=== PATIENT | male | born 1950 | race Caucasian/White ===

== ENCOUNTER 2017-04-21 16:52 | Inpatient (IN) | payer MEDICARE ==
[~2017-04-21] VITALS: Ht 185.4 cm; Wt 98.9 kg
[2017-04-21] VITALS (7 sets, daily range): BP systolic 108–130; BP diastolic 64–69; PULSE 87–124; RESP 17–20; TEMP 98.5–100.2; O2SAT 95–98
[~2017-04-21 16:52] MED LIST: COUM5TAB PO; DRIS50002 PO; PANT40TA3 PO; TYLE325T PO; VITA100T2 PO; WALKER WHEELS/F1 MIS; ZOFR4TAB PO
[2017-04-21] MEDS ORDERED: SODIUM CHLORIDE 0.9% FLUSH 10 ML FLUSH IVF PRN (17:00)
[2017-04-21] MEDS ORDERED: SODIUM CHLOR 0.9% 250 ML INJ 250 ML IV ONE (17:15)
--- NOTE | 2017-04-21 17:16 | PD ---
HPI Chief Complaint: GI Complaint Time Seen by Provider: 16:57 Travel History International Travel<30 days: No Contact w/Intl Traveler<30days: No Traveled to known affect area: No History of Present Illness HPI this is a 66-year-old male with a history of left-sided stroke leading right- sided deficits and aphasia presents emergency Department with low hemoglobin and GI bleeding. Patient has been on Coumadin and apparently had some dark stools and had labs today at the [facility] which showed a hemoglobin of approximately 4. The patient is an incredibly difficult historian secondary to his expressive aphasia. He does however complain of some minimal suprapubic pain. He denies any chest pain shortness of breath. Unclear as to the duration of his symptoms. PFSH Past Medical History Hx Anticoagulant Therapy: Yes (325 MG. ASA DAILY) Cardiovascular Problems: Yes COPD: Yes Cerebrovascular Accident: Yes (RIGHT SIDED WEAKNESS) Diminished Hearing: No Musculoskeletal: No Past Surgical History Pacemaker: No Other Surgery: Yes (HERNIA REPAIR INFANT) Social History Alcohol Use: Yes (H/O ETOH DAILY) Tobacco Use: No Substance Use: No Allergies-Medications (Allergen,Severity, Reaction): Coded Allergies: No Known Allergies (Verified , 09/26/16) Reported Meds & Prescriptions Reported Meds & Active Scripts Active Reported Loperamide (Loperamide HCl) 2 Mg Cap 4 Mg PO INITIAL DOSE PRN After initial dose, give 1 cap (2mg) after each loose stool, not to exceed 8 caps/2hrs-May give liquid if unable to take capsule Milk of Magnesia Liq (Magnesium Hydroxide) 400 Mg/5 Ml Susp 30 Ml PO Q4HR PRN Enema Disposable (Sodium Phosphates) 1 Deb Deb 1 Applic RECTAL DIRECTED PRN Dulcolax Supp (Bisacodyl) 10 Mg Supp 10 Mg RECTAL DAILY PRN Antacid II-Simethicone Liq (Mag Hydrox/Aluminum Hyd/Simeth) 360 Ml Oral.susp 30 Ml PO Q4HR PRN Aspirin Adult Low Strength (Aspirin) 81 Mg Tabdr 81 Mg PO DAILY Coumadin (Warfarin) 2 Mg Tab 7 Mg PO MOWE Take 1 tablet with a 5mg tablet for a total dose of 7mg daily on Wednesday and Wednesday Coumadin (Warfarin) 5 Mg Tab 7 Mg PO MOWE Take 1 tablet with 2mg tablet for a total dose of 7mg daily on Wednesday and Wednesday Coumadin (Warfarin) 5 Mg Tab 5 Mg PO SUTUTHFRSA Take 1 tablet (5mg) on daily on Wednesday,Wednesday,,Wednesday and Wednesday Tylenol (Acetaminophen) 325 Mg Tab 650 Mg PO Q4H PRN Review of Systems ROS Limitations: Poor Historian Physical Exam Narrative GENERAL: Well-developed, well-nourished, extremely pale patient. SKIN: Pale. No rash no wound seen.. HEAD: Atraumatic. Normocephalic. EYES: Pupils equal and round. No scleral icterus. No injection or drainage. ENT: No nasal bleeding or discharge. Mucous membranes pink and moist. NECK: Trachea midline. No JVD. CARDIOVASCULAR: Regular rate and rhythm. No murmur appreciated. RESPIRATORY: No accessory muscle use. Clear to auscultation. Breath sounds equal bilaterally. GASTROINTESTINAL: Abdomen soft, non-tender, nondistended. Hepatic and splenic margins not palpable. Patient's abdomen is benign, he is wearing a diaper which is Significant melena within, Hemoccult positive. MUSCULOSKELETAL: No obvious deformities. No clubbing. No cyanosis. No edema. NEUROLOGICAL: Awake and alert. Expressive aphasia but can answer yes or no. Paralysis of right upper extremity, cranial nerves II through XII appear to be intact and nonfocal. PSYCHIATRIC: Appropriate mood and affect; insight and judgment normal. Data Data Last Documented VS Vital Signs Date Time Temp Pulse Resp B/P Pulse Ox O2 Delivery O2 Flow Rate FiO2 04/21/17 18:48 100.2 108 20 110/66 96 Orders Complete Blood Count With Diff (04/21/17 16:57) Comprehensive Metabolic Panel (04/21/17 16:57) Lipase (04/21/17 16:57) Prothrombin Time / Inr (Pt) (04/21/17 16:57) Act Partial Throm Time (Ptt) (04/21/17 16:57) Type And Screen (04/21/17 16:57) Ecg Monitoring (04/21/17 16:57) Iv Access Insert/Monitor (04/21/17 16:57) Oximetry (04/21/17 16:57) Sodium Chloride 0.9% Flush (Ns Flush) (04/21/17 17:00) Red Blood Cells (Rbc) (04/21/17 17:08) Blood Product Administration .UPON TRANSFUSION (04/21/17 17:08) Sodium Chlor 0.9% 250 Ml Inj (Ns 250 Ml (04/21/17 17:15) Consult Gastroenterology (04/21/17 ) (Hub Use Only)Inp Phy Cons/Ref (04/21/17 ) ^ Lab Follow Up (04/21/17 18:51) Ct Brain W/O Iv Contrast(Rout) (04/22/17 07:51) Prothrombin Complex Conc Inj (Kcentra In (04/21/17 19:30) Fibrinogen (04/21/17 18:51) Phytonadione Inj (Vitamin K Inj) (04/21/17 19:00) Admit Order (Ed Use Only) (04/21/17 ) Labs Laboratory Tests Test 04/21/17 17:25 White Blood Count 19.2 TH/MM3 Red Blood Count 2.11 MIL/MM3 Hemoglobin 5.1 GM/DL Hematocrit 16.8 % Mean Corpuscular Volume 79.6 FL Mean Corpuscular Hemoglobin 24.0 PG Mean Corpuscular Hemoglobin 30.2 % Concent Red Cell Distribution Width 17.2 % Platelet Count 386 TH/MM3 Mean Platelet Volume 7.2 FL Neutrophils (%) (Auto) 75.7 % Lymphocytes (%) (Auto) 16.1 % Monocytes (%) (Auto) 7.4 % Eosinophils (%) (Auto) 0.5 % Basophils (%) (Auto) 0.3 % Neutrophils # (Auto) 14.5 TH/MM3 Lymphocytes # (Auto) 3.1 TH/MM3 Monocytes # (Auto) 1.4 TH/MM3 Eosinophils # (Auto) 0.1 TH/MM3 Basophils # (Auto) 0.1 TH/MM3 CBC Comment DIFF FINAL Differential Comment Prothrombin Time 137.7 SEC Prothromb Time International 11.2 RATIO Ratio Activated Partial 85.0 SEC Thromboplast Time Sodium Level 137 MEQ/L Potassium Level 3.7 MEQ/L Chloride Level 103 MEQ/L Carbon Dioxide Level 22.7 MEQ/L Anion Gap 11 MEQ/L Blood Urea Nitrogen 17 MG/DL Creatinine 0.69 MG/DL Estimat Glomerular Filtration 115 ML/MIN Rate Random Glucose 143 MG/DL Calcium Level 7.9 MG/DL Total Bilirubin 0.1 MG/DL Aspartate Amino Transf 14 U/L (AST/SGOT) Alanine Aminotransferase 15 U/L (ALT/SGPT) Alkaline Phosphatase 76 U/L Total Protein 5.9 GM/DL Albumin 2.5 GM/DL Lipase 80 U/L Blood Type O POSITIVE Antibody Screen NEGATIVE Crossmatch Leukocyte-Reduced Red Blood Cells Blood Bank Comment MDM Medical Decision Making Medical Screen Exam Complete: Yes Emergency Medical Condition: Yes Differential Diagnosis GI bleed, upper GI bleed, anemia, elevated INR, esophageal bleeding. Narrative Course Patient was roomed in the emergency department, patient appears quite pale, hemodynamically stable. Labs in ED show hbg of 5 and INR of 11. Platelets normal. 2xPRBC's. after discussion with Dr. Santana: Vit K 10 SQ PCC per protocol Patient discussed with Dr. Mckinley who agrees with above plan. Patient critically ill to ICU for the night. Procedures Procedure Narrative Aggregate critical care time was 35 minutes. Time to perform other separately billable procedures was not included in the critical care time. My time did not include minutes spent treating any other patients simultaneously or on activities that did not directly contribute to the patient's treatment. The services I provided to this patient were to treat and/or prevent clinically significant deterioration that could result in: , disability, organ failure I provided critical care services requiring my management, as noted below: Chart data review, documentation time, medication orders and management, vital sign assessments/reviewing monitor data, ordering and reviewing lab tests, ordering and interpreting/reviewing x-rays and diagnostic studies, care of the patient and discussion of the patient with the admitting physicians. Diagnosis Primary Impression: Upper GI bleed Additional Impressions: Anemia Elevated INR Admitting Information Admitting Physician Requests: Admit Condition: Serious Hernan Shipley MD Apr 21, 2017 17:16
[2017-04-21] MEDS ORDERED: COUM5TAB PO ×2 (17:47)
[2017-04-21] MEDS ORDERED: ASPI1TAB91 PO (17:47)
[2017-04-21] MEDS ORDERED: COUM2TAB PO (17:47)
[2017-04-21] MEDS ORDERED: DULC10SU3 RECTAL (17:51)
[2017-04-21] MEDS ORDERED: ENEMENE5 RECTAL (17:51)
[2017-04-21] MEDS ORDERED: MILKSUS PO (17:51)
[2017-04-21] MEDS ORDERED: [UNRECOGNIZED DRUG - CODE] PO (17:51)
[2017-04-21 17:52] LABS: AUTOMATED NEUTROPHIL # 14.5 TH/MM3 (1.8-7.7); BASOPHIL # 0.1 TH/MM3 (0-0.2); BASOPHIL % 0.3 % (0.0-2.0); EOSINOPHIL # 0.1 TH/MM3 (0-0.4); EOSINOPHIL % 0.5 % (0.0-4.0); LYMPH % 16.1 % (9.0-44.0); LYMPHOCYTE # 3.1 TH/MM3 (1.0-4.8); MEAN CELL VOLUME 79.6 FL (80.0-100.0); MEAN CORPUSCULAR HGB CONC 30.2 % (32.0-36.0); MONO % 7.4 % (0.0-8.0); NEUT % 75.7 % (16.0-70.0); PLATELET COUNT 386 TH/MM3 (150-450); RED BLOOD COUNT 2.11 MIL/MM3 (4.50-5.90); RED CELL DISTRIBUTION WIDTH 17.2 % (11.6-17.2); WHITE BLOOD COUNT 19.2 TH/MM3 (4.0-11.0)
[2017-04-21] MEDS ORDERED: LOPE2CAP PO (17:54)
[2017-04-21 18:01] LABS: HEMO FLAGS DIFF FINAL
[2017-04-21 18:02] LABS: PROTHROMBIN TIME - PATIENT 137.7 SEC (9.8-11.6)
[2017-04-21 18:06] LABS: HEMATOCRIT 16.8 % (39.0-51.0)
[2017-04-21 18:15] LABS: INTERNATIONAL NORMALIZED RATIO 11.2 RATIO
[2017-04-21 18:17] LABS: ALT (GPT) 15 U/L (12-78); ANION GAP 11 MEQ/L (5-15); AST (GOT) 14 U/L (15-37); BICARBONATE 22.7 MEQ/L (21.0-32.0); CHLORIDE 103 MEQ/L (98-107); GLOMERULAR FILTRATION RATE 115 ML/MIN (>89); POTASSIUM 3.7 MEQ/L (3.5-5.1); SODIUM (NA) 137 MEQ/L (136-145)
[2017-04-21 18:25] LABS: ALKALINE PHOSPHATASE 76 U/L (45-117); BLOOD UREA NITROGEN 17 MG/DL (7-18); TOTAL BILIRUBIN ADULT 0.1 MG/DL (0.2-1.0)
[2017-04-21] MEDS ORDERED: PHYTONADIONE 10 MG/ML VIAL SQ ONE (19:00)
[2017-04-21] MEDS ORDERED: PROTHROMBIN COMPLEX CONC INJ 4,000 UNITS in SYRINGE/BAG 1 EA IV ONE (19:30)
[2017-04-21] MEDS ORDERED: CHLORHEXIDINE GLUCONATE 2 % 1 PACK (2 CLOTHS) TOP PRN (19:45)
[2017-04-21] MEDS ORDERED: PROCHLORPERAZINE 25 MG SUPP RECTAL PRN (19:45)
[2017-04-21] MEDS ORDERED: ACETAMINOPHEN 325 MG TAB PO PRN (19:45)
[2017-04-21] MEDS ORDERED: SODIUM CHLORIDE 0.9% FLUSH 10 ML FLUSH IV FLUSH PRN (19:45)
[2017-04-21] MEDS ORDERED: MISCELLANEOUS NURSING INFORMATION XX SCH (19:45)
[2017-04-21] MEDS ORDERED: LORazepam 2 MG/ML VIAL IV PRN (19:45)
[2017-04-21] MEDS ORDERED: RESP: ALBUTEROL 2.5 MG/IPRATROPIUM 0.5 MG NEB (PRN) INH (19:45)
[2017-04-21] MEDS ORDERED: SENNOSIDES 8.6 MG TAB PO PRN (19:45)
[2017-04-21] MEDS ORDERED: LACTULOSE SYRUP 20 GM/30 ML CUP PO PRN (19:45)
[2017-04-21] MEDS ORDERED: ONDANSETRON HCL 4 MG/2 ML VIAL IV PRN (19:45)
[2017-04-21] MEDS ORDERED: METOCLOPRAMIDE HCL 10 MG/2 ML VIAL IV PRN (19:45)
[2017-04-21] MEDS ORDERED: BISACODYL 10 MG SUPP RECTAL PRN ×2 (19:45)
[2017-04-21] MEDS ORDERED: MAGNESIUM HYDROXIDE SUSP 30 ML CUP PO PRN ×2 (19:45)
[2017-04-21] MEDS ORDERED: OCTREOTIDE INJ 100 MCG/ML VIAL IV PUSH ONE (20:15)
[2017-04-21] MEDS: SODIUM CHLORIDE 0.9% FLUSH 10 ML FLUSH IV FLUSH SCH (21:00)
[2017-04-21] MEDS: SODIUM CHLOR 0.9% 1000 ML INJ 1,000 ML IV SCH (21:04)
[2017-04-21] MEDS: PANTOPRAZOLE SODIUM 40 MG VIAL IV SCH (21:04)
[2017-04-21] MEDS ORDERED: ALUMINUM/MAGNESIUM/SIMETH 30 ML CUP PO PRN (21:15)
--- NOTE | 2017-04-21 23:27 | HHI.HP ---
[facility] Service Critical Care Medicine Primary Care Physician Maxi Burton MD Admission Diagnosis Severe anemia, GI bleeding, Elevated INR Diagnosis: Travel History International Travel<30 Days: No Contact w/Intl Traveler <30 Da: No Traveled to Known Affected Are: No History of Present Illness 66-year-old male with a history of left-sided stroke leading right-sided deficits and aphasia presents with low hemoglobin and GI bleeding. Patient has been on Coumadin and had some dark stools. He has had his lab work done today at the halfway which showed a hemoglobin of approximately 4. The patient is an incredibly difficult historian secondary to his expressive aphasia. He does however complain of some minimal suprapubic pain. He denies any chest pain shortness of breath. Review of Systems ROS Unable to obtain due to expressive aphasia Past Family Social History Allergies: Coded Allergies: No Known Allergies (Verified , 09/26/16) Past Medical History CVA COPD Hyperlipidemia Past Surgical History Hernia repair as an infant ORIF of intertrochanteric fracture with intramedullary nail, 09/09/16 Reported Medications Reported Meds & Active Scripts Active Reported Loperamide (Loperamide HCl) 2 Mg Cap 4 Mg PO INITIAL DOSE PRN After initial dose, give 1 cap (2mg) after each loose stool, not to exceed 8 caps/2hrs-May give liquid if unable to take capsule Milk of Magnesia Liq (Magnesium Hydroxide) 400 Mg/5 Ml Susp 30 Ml PO Q4HR PRN Enema Disposable (Sodium Phosphates) 1 Deb Deb 1 Applic RECTAL DIRECTED PRN Dulcolax Supp (Bisacodyl) 10 Mg Supp 10 Mg RECTAL DAILY PRN Antacid II-Simethicone Liq (Mag Hydrox/Aluminum Hyd/Simeth) 360 Ml Oral.susp 30 Ml PO Q4HR PRN Aspirin Adult Low Strength (Aspirin) 81 Mg Tabdr 81 Mg PO DAILY Coumadin (Warfarin) 2 Mg Tab 7 Mg PO MOWE Take 1 tablet with a 5mg tablet for a total dose of 7mg daily on Wednesday and Wednesday Coumadin (Warfarin) 5 Mg Tab 7 Mg PO MOWE Take 1 tablet with 2mg tablet for a total dose of 7mg daily on Wednesday and Wednesday Coumadin (Warfarin) 5 Mg Tab 5 Mg PO SUTUTHFRSA Take 1 tablet (5mg) on daily on Wednesday,Wednesday,,Wednesday and Wednesday Tylenol (Acetaminophen) 325 Mg Tab 650 Mg PO Q4H PRN Active Ordered Medications Current Medications Medications (Trade) Dose Ordered Sig/Titus Route PRN Reason Start Time Stop Time Status Last Admin Dose Admin Sodium Chloride (NS 250 ml Inj) 250 ml @ 15 mls/hr ONCE ONCE IV 04/21/17 17:15 04/22/17 09:54 04/21/17 17:36 Acetaminophen (Tylenol) 650 mg Q4H PRN PO Pain1-5/Discomfort/Temp >101 04/21/17 19:45 Al Hydrox/Mg Hydrox/ Simethicone 15 ml 15 ml Q6H PRN PO Heartburn/Indigestion 04/21/17 21:15 Sodium Chloride (NS 1000 ml Inj) 1,000 ml @ 84 mls/hr [id number] IV 04/21/17 21:00 04/21/17 21:04 Sodium Chloride (NS Flush) 2 ml UNSCH PRN IV FLUSH FLUSH AFTER USING IV ACCESS 04/21/17 19:45 Sodium Chloride (NS Flush) 2 ml BID IV FLUSH 04/21/17 21:00 04/21/17 21:00 Morphine Sulfate (Morphine Inj) 2 mg Q2H PRN IV PAIN SCALE 6 TO 10 04/21/17 19:45 Pantoprazole Sodium (Protonix Inj) 40 mg Q12H IV 04/21/17 20:00 04/21/17 21:04 Lorazepam (Ativan Inj) 2 mg Q4H PRN IV Agitation/Sedation 04/21/17 19:45 Miscellaneous Information 1 [id number] 04/21/17 19:45 Chlorhexidine Gluconate (Chlorhexidine 2% Cloth) 3 pack Taper DAILY@04 TOP 04/22/17 04:00 04/18/18 03:59 Chlorhexidine Gluconate (Chlorhexidine 2% Cloth) 3 pack UNSCH PRN TOP HYGIENIC CARE 04/21/17 19:45 Senna/Docusate Sodium (Kaleigh-Colace) 1 tab BID PO 04/21/17 21:00 Magnesium Hydroxide (Milk Of Magnesia Liq) 30 ml Q12H PRN PO MILD - MODERATE CONSTIPATION 04/21/17 19:45 Sennosides (Senokot) 17.2 mg Q12H PRN PO MODERATE - SEVERE CONSTIPATION 04/21/17 19:45 Bisacodyl (Dulcolax Supp) 10 mg DAILY PRN RECTAL SEVERE CONSITIPATION 04/21/17 19:45 Lactulose (Lactulose Liq) 30 ml DAILY PRN PO SEVERE CONSITIPATION 04/21/17 19:45 Family History Noncontributory Social History Unable to obtain due to expressive aphasia Physical Exam Vital Signs Vital Signs Date Time Temp Pulse Resp B/P Pulse Ox O2 Delivery O2 Flow Rate FiO2 04/21/17 22:00 98.9 89 17 130/69 98 04/21/17 21:05 87 18 108/64 95 Room Air 04/21/17 19:20 88 18 113/66 96 Room Air 04/21/17 18:48 100.2 108 20 110/66 96 04/21/17 17:36 109 20 109/65 04/21/17 17:17 124 20 109/65 96 04/21/17 17:04 98.5 121 20 109/65 96 Physical Exam GENERAL: Elderly pale man SKIN: Warm and dry. HEAD: Normocephalic. EYES: No scleral icterus. No injection or drainage. NECK: Supple, trachea midline. No JVD or lymphadenopathy. CARDIOVASCULAR: Regular rate and rhythm without murmurs, gallops, or rubs. RESPIRATORY: Breath sounds equal bilaterally. No accessory muscle use. GASTROINTESTINAL: Abdomen soft, non-tender, nondistended. MUSCULOSKELETAL: No cyanosis, or edema. BACK: Nontender without obvious deformity. No CVA tenderness. EXTREMITIES: No clubbing cyanosis or edema Laboratory Laboratory Tests Test 04/21/17 17:25 White Blood Count 19.2 Red Blood Count 2.11 Hemoglobin 5.1 Hematocrit 16.8 Mean Corpuscular Volume 79.6 Mean Corpuscular Hemoglobin 24.0 Mean Corpuscular Hemoglobin 30.2 Concent Red Cell Distribution Width 17.2 Platelet Count 386 Mean Platelet Volume 7.2 Neutrophils (%) (Auto) 75.7 Lymphocytes (%) (Auto) 16.1 Monocytes (%) (Auto) 7.4 Eosinophils (%) (Auto) 0.5 Basophils (%) (Auto) 0.3 Neutrophils # (Auto) 14.5 Lymphocytes # (Auto) 3.1 Monocytes # (Auto) 1.4 Eosinophils # (Auto) 0.1 Basophils # (Auto) 0.1 CBC Comment DIFF FINAL Differential Comment Prothrombin Time 137.7 Prothromb Time International 11.2 Ratio Activated Partial 85.0 Thromboplast Time Fibrinogen 382 Sodium Level 137 Potassium Level 3.7 Chloride Level 103 Carbon Dioxide Level 22.7 Anion Gap 11 Blood Urea Nitrogen 17 Creatinine 0.69 Estimat Glomerular Filtration 115 Rate Random Glucose 143 Calcium Level 7.9 Total Bilirubin 0.1 Aspartate Amino Transf 14 (AST/SGOT) Alanine Aminotransferase 15 (ALT/SGPT) Alkaline Phosphatase 76 Total Protein 5.9 Albumin 2.5 Lipase 80 Blood Type O POSITIVE Antibody Screen NEGATIVE Crossmatch Leukocyte-Reduced Red Blood Cells Blood Bank Comment Result Diagram: 04/21/17 1725 04/21/17 1725 Assessment and Plan Assessment and Plan Gastrointestinal Bleed - Protonix IV twice a day - Reverse coagulopathy - Patient has received Kcentra and FFP is in vitamin K in the ED - Further management per GI Anemia - Due to blood loss - Transfuse to keep hemoglobin close to 8 - Reverse anticoagulation Coagulopathy - Hold Coumadin - Kcentra - Vitamin K - FFP's - Repeat lab work Dyslipidemia - Resume home meds when okay with a GI DVT GI prophylaxis - Teds SCDs - No pharmacological DVT prophylaxis due to hemorrhagic anemia - IV Protonix Critical Care: The total critical care time was 35 minutes. Time to perform other separately billable procedures was not included in the critical care time. Ty Santana MD Apr 21, 2017 23:27
[2017-04-22] VITALS (21 sets, daily range): BP systolic 83–160; BP diastolic 48–74; PULSE 64–80; RESP 16–32; TEMP 97.7–98.9; O2SAT 93–100
[2017-04-22 02:40] LABS: AUTOMATED NEUTROPHIL # 7.7 TH/MM3 (1.8-7.7); BASOPHIL % 0.3 % (0.0-2.0); EOSINOPHIL # 0.1 TH/MM3 (0-0.4); EOSINOPHIL % 0.6 % (0.0-4.0); HEMATOCRIT 21.6 % (39.0-51.0); HEMO FLAGS DIFF FINAL; LYMPH % 18.7 % (9.0-44.0); MEAN CELL VOLUME 75.5 FL (80.0-100.0); MEAN CORPUSCULAR HEMOGLOBIN 24.6 PG (27.0-34.0); MEAN CORPUSCULAR HGB CONC 32.6 % (32.0-36.0); MONO % 8.5 % (0.0-8.0); NEUT % 71.9 % (16.0-70.0); PLATELET COUNT 247 TH/MM3 (150-450); RED BLOOD COUNT 2.87 MIL/MM3 (4.50-5.90); RED CELL DISTRIBUTION WIDTH 17.1 % (11.6-17.2); WHITE BLOOD COUNT 10.6 TH/MM3 (4.0-11.0)
[2017-04-22 02:55] LABS: ALT (GPT) 13 U/L (12-78); ANION GAP 7 MEQ/L (5-15); AST (GOT) 14 U/L (15-37); BICARBONATE 27.1 MEQ/L (21.0-32.0); BLOOD UREA NITROGEN 14 MG/DL (7-18); CHLORIDE 106 MEQ/L (98-107); GLOMERULAR FILTRATION RATE 189 ML/MIN (>89); MAGNESIUM 1.8 MG/DL (1.5-2.5); POTASSIUM 3.8 MEQ/L (3.5-5.1); SODIUM (NA) 140 MEQ/L (136-145)
[2017-04-22 02:57] LABS: ALKALINE PHOSPHATASE 66 U/L (45-117); TOTAL BILIRUBIN ADULT 0.4 MG/DL (0.2-1.0)
[2017-04-22] MEDS: CHLORHEXIDINE GLUCONATE 2 % 1 PACK (2 CLOTHS) TOP SCH (03:06)
[2017-04-22 05:39] LABS: INTERNATIONAL NORMALIZED RATIO 1.3 RATIO; PROTHROMBIN TIME - PATIENT 14.4 SEC (9.8-11.6)
--- NOTE | 2017-04-22 06:12 | RADRPT ---
EXAM DATE/TIME: 04/22/2017 04:42 [facility] COMPARISON: CT BRAIN W/O CONTRAST, September 08, 2016, 10:22. INDICATIONS : Altered mental status. RADIATION DOSE: 37.22 CTDIvol (mGy) MEDICAL HISTORY : Cerebrovascular disease. Cardiovascular disease Chronic obstructive pulmonary disease. SURGICAL HISTORY : None. ENCOUNTER: Initial ACUITY: 1 day PAIN SCALE: 0/10 LOCATION: cranial TECHNIQUE: Multiple contiguous axial images were obtained of the head. Using automated exposure control and adj ustment of the mA and/or kV according to patient size, radiation dose was kept as low as reasonably a chievable to obtain optimal diagnostic quality images. DICOM format image data is available electro nically for review and comparison. FINDINGS: CEREBRUM: Throughout the entire left MCA distribution and with associated enlargement of the lateral ventricle is stable in appearance. No evidence of midline shift. There is good merida-white matter differentiat ion in the right supratentorial brain. No extra-axial fluid or blood. POSTERIOR FOSSA: The cerebellum and brainstem are intact. The 4th ventricle is midline. The cerebellopontine angle i s unremarkable. EXTRACRANIAL: Bilateral ethmoid sinus disease with multiple opacified air cells. Mild mucosal thickening in the de pendent left maxillary sinus, stable from prior. The visualized portion of the orbits is intact. SKULL: The calvaria is intact. No evidence of skull fracture. CONCLUSION: No acute findings. 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 Dagoberto English MD on April 22, 2017 at 6:06 Board Certified Radiologist. This report was verified electronically.
[2017-04-22] MEDS: PANTOPRAZOLE SODIUM 40 MG VIAL IV SCH ×2 (08:00→20:36)
[2017-04-22] MEDS: SODIUM CHLOR 0.9% 1000 ML INJ 1,000 ML IV SCH ×2 (08:55→20:29)
--- NOTE | 2017-04-22 08:55 | HHI.CCPN ---
Objective Vital Signs Date Time Temp Pulse Resp B/P Pulse Ox O2 Delivery O2 Flow Rate FiO2 04/22/17 08:16 97 21 04/22/17 07:00 98.3 72 23 103/57 04/22/17 07:00 Room Air Intake and Output 04/21/17 04/21/17 04/22/17 08:00 16:00 00:00 Intake Total 607 ml Balance 607 ml Result Diagram: 04/22/175 04/22/17 0215 Objective Remarks GENERAL: Elderly pale man SKIN: Warm and dry. HEAD: Normocephalic. EYES: No scleral icterus. No injection or drainage. NECK: Supple, trachea midline. No JVD or lymphadenopathy. CARDIOVASCULAR: Regular rate and rhythm without murmurs, gallops, or rubs. RESPIRATORY: Breath sounds equal bilaterally. No accessory muscle use. GASTROINTESTINAL: Abdomen soft, non-tender, nondistended. MUSCULOSKELETAL: No cyanosis, or edema. BACK: Nontender without obvious deformity. No CVA tenderness. EXTREMITIES: No clubbing cyanosis or edema A/P Assessment and Plan Gastrointestinal Bleed - Protonix IV twice a day - Reverse coagulopathy - Patient has received Kcentra and FFP is in vitamin K in the ED - Further management per GI Anemia - Due to blood loss - Transfuse to keep hemoglobin close to 8 - Reverse anticoagulation Coagulopathy - Hold Coumadin - Kcentra - Vitamin K - FFP's - Repeat lab work Dyslipidemia - Resume home meds when okay with a GI DVT GI prophylaxis - Teds SCDs - No pharmacological DVT prophylaxis due to hemorrhagic anemia - IV Protonix Critical Care: The total critical care time was 35 minutes. Time to perform other separately billable procedures was not included in the critical care time. Ayo Skaggs MD Apr 22, 2017 08:55
[2017-04-22] MEDS: DOCUSATE SODIUM 50 MG/SENNA 8.6 MG TAB PO SCH ×2 (09:00→20:36)
[2017-04-22] MEDS: SODIUM CHLORIDE 0.9% FLUSH 10 ML FLUSH IV FLUSH SCH ×2 (09:00→20:30)
--- NOTE | 2017-04-22 09:00 | HHI.CCPN ---
Subjective Remarks/Hospital Course 66-year-old male with a history of left-sided stroke leading right-sided deficits and aphasia presents with low hemoglobin and GI bleeding. Patient has been on Coumadin and had some dark stools. He has had his lab work done today at the halfway which showed a hemoglobin of approximately 4. The patient is an incredibly difficult historian secondary to his expressive aphasia. He does however complain of some minimal suprapubic pain. He denies any chest pain shortness of breath. 04/22: Normotensive. INR corrected. Stable hemodynamics. Transfer. Objective Vital Signs Date Time Temp Pulse Resp B/P Pulse Ox O2 Delivery O2 Flow Rate FiO2 04/22/17 08:16 97 21 04/22/17 07:00 98.3 72 23 103/57 04/22/17 07:00 Room Air Intake and Output 04/21/17 04/21/17 04/22/17 08:00 16:00 00:00 Intake Total 607 ml Balance 607 ml Result Diagram: 04/22/175 04/22/175 Objective Remarks GENERAL: Elderly man SKIN: Warm and dry. HEAD: Normocephalic. EYES: No scleral icterus. No injection or drainage NECK: Supple, trachea midline.Airway clear. CARDIOVASCULAR: Regular rate and rhythm without murmurs, gallops, or rubs. No JVD. RESPIRATORY: Breath sounds equal bilaterally. No accessory muscle use. Comfortable pattern. GASTROINTESTINAL: Abdomen soft, non-tender, nondistended. BS active. MUSCULOSKELETAL: No cyanosis, or edema. Well perfused. BACK: Nontender without obvious deformity. No CVA tenderness. EXTREMITIES: No clubbing cyanosis or edema, NEURO: Aphasia. s/p old left MCA CVA with contralateral paresis. Alert. A/P Assessment and Plan Gastrointestinal Bleed - Protonix IV twice a day - Reverse coagulopathy - Patient has received Kcentra and FFP, vitamin K in the ED - Further management per GI Anemia - Due to blood loss - Transfuse to keep hemoglobin close to 8 -> 2 units. - Reverse anticoagulation -> done. Coagulopathy - Hold Coumadin - Kcentra - Vitamin K - FFP's - Repeat lab work Dyslipidemia - Resume home meds when okay with a GI DVT GI prophylaxis - Teds SCDs - No pharmacological DVT prophylaxis due to hemorrhagic anemia - IV Protonix Overall impression: Stable hemodynamics s/p GI bleed due to warfarin coagulopathy (INR 11.0), now corrected. Ayo Skaggs MD Apr 22, 2017 09:00
--- NOTE | 2017-04-22 09:18 | PD.CONS ---
HPI History of Present Illness This is a 66 year old with a history of a CVA and some degree of expressive aphasia who was sent to the ER from a local nursing facility for evaluation of dark stools. The patient reports that he has been having black tarry stools for the past 4 days. During this time he has had decreased appetite with associated nausea and vomiting. He denies any hematemesis but cannot tell me the color of his emesis. He does have occasional heartburn, but not daily. He complains of lower abdominal cramping prior to the bowel movements. They are black and tarry. There are no aggravating or alleviating factors. He denies any history of peptic ulcer disease. He has never had GI bleeding in the past. He does not recall ever having a colonoscopy. Of note, he does use Ibuprofen as needed, but cannot quantify the amount or tell me how often. 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 Pathology revealed ulcerated esophageal mucosal biopsy with severe acute superior to nonspecific esophagitis, GMS fungal stain negative for organisms. He is on Coumadin for his history of CVA. On arrival to the ER he was found to have an H&H of 5.1/16.8 and an INR of 11.2. He was transfused 2 units of packed red blood cells and given K Sentra, 2 units of FFP, and vitamin K. Today his INR is 1.3. PFSH Past Medical History Esophagitis Small duodenal AVM Gastritis Hiatal hernia History of CVA COPD Hyperlipidemia Anemia History of GI bleeding secondary to duodenal AVM Past Surgical History EGD Hernia repair as an infant ORIF right intertrochanteric fx with IM nailing Coded Allergies: No Known Allergies (Verified , 09/26/16) Medications Allergies Coded Allergies Type Severity Reaction Last Updated Verified No Known Allergies 09/26/16 Yes Active Scripts Medications Dose Route/Sig Days Date Category Dose Instructions Loperamide (Loperamide HCl) 2 Mg Cap 4 Mg PO INITIAL DOSE PRN 04/21/17 Reported After initial dose, give 1 cap (2mg) after each loose stool, not to exceed 8 caps/2hrs-May give liquid if unable to take capsule Milk of Magnesia Liq (Magnesium Hydroxide) 400 Mg/5 Ml Susp 30 Ml PO Q4HR PRN 04/21/17 Reported Enema Disposable (Sodium Phosphates) 1 Deb Deb 1 Applic RECTAL DIRECTED PRN 04/21/17 Reported Dulcolax Supp (Bisacodyl) 10 Mg Supp 10 Mg RECTAL DAILY PRN 04/21/17 Reported Antacid II-Simethicone Liq (Mag Hydrox/Aluminum Hyd/Simeth) 360 Ml Oral.susp 30 Ml PO Q4HR PRN 04/21/17 Reported Aspirin Adult Low Strength (Aspirin) 81 Mg Tabdr 81 Mg PO DAILY 04/21/17 Reported Coumadin (Warfarin) 2 Mg Tab 7 Mg PO MOWE 04/21/17 Reported Take 1 tablet with a 5mg tablet for a total dose of 7mg daily on Wednesday and Wednesday Coumadin (Warfarin) 5 Mg Tab 7 Mg PO WE 04/21/17 Reported Take 1 tablet with 2mg tablet for a total dose of 7mg daily on Wednesday and Wednesday Coumadin (Warfarin) 5 Mg Tab 5 Mg PO SUTUTHFRSA 04/21/17 Reported Take 1 tablet (5mg) on daily on Wednesday, Wednesday,,Wednesday and Wednesday Tylenol (Acetaminophen) 325 Mg Tab 650 Mg PO Q4H PRN 09/26/16 Reported Family History He does not know his family history Social History He does not smoke, use etoh, or illicit drugs Review of Systems Constitutional: COMPLAINS OF: Fatigue, Weight loss, Change in appetite Respiratory: DENIES: Cough Cardiovascular: DENIES: Chest pain Gastrointestinal: COMPLAINS OF: Abdominal pain, Black stools, Diarrhea, Nausea , Vomiting, Heartburn, DENIES: Bloody stools, Constipation, Anorexia, Hematemesis Musculoskeletal: COMPLAINS OF: Joint pain, DENIES: Back pain Hematologic/lymphatic: COMPLAINS OF: Bruising Neurologic: COMPLAINS OF: Localized weakness, DENIES: Headache Psychiatric: DENIES: Confusion GI Exam Vitals I&O Vital Signs Date Time Temp Pulse Resp B/P Pulse Ox O2 Delivery O2 Flow Rate FiO2 04/22/17 08:16 97 21 04/22/17 07:00 98.3 72 23 103/57 99 04/22/17 07:00 72 04/22/17 07:00 97 Room Air 04/22/17 04:00 98.6 68 24 107/59 98 04/22/17 00:00 Room Air 04/22/17 00:00 98.9 80 23 135/67 97 04/21/17 22:00 98.9 89 17 130/69 98 04/21/17 21:05 87 18 108/64 95 Room Air 04/21/17 19:20 88 18 113/66 96 Room Air 04/21/17 18:48 100.2 108 20 110/66 96 04/21/17 17:36 109 20 109/65 04/21/17 17:17 124 20 109/65 96 04/21/17 17:04 98.5 121 20 109/65 96 I/O 04/21/17 04/21/17 04/21/17 04/22/17 04/22/17 04/22/17 07:00 15:00 23:00 07:00 15:00 23:00 Intake Total 607 ml 663 ml 168 ml Balance 607 ml 663 ml 168 ml Intake Oral 0 ml IV Total 107 ml 663 ml 168 ml Packed Cells 500 ml 0 ml # Voids 1 1 # Bowel Movements 2 1 1 Imaging Last Impressions Head CT 04/22/17 0751 Signed Impressions: Service Date/Time: March 04:42 - CONCLUSION: No acute findings. 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 Dagoberto English MD Laboratory Test 04/21/17 04/21/17 04/22/17 04/22/17 17:25 22:20 02:15 03:18 White Blood Count 19.2 TH/MM3 10.6 TH/MM3 Red Blood Count 2.11 MIL/MM3 2.87 MIL/MM3 Hemoglobin 5.1 GM/DL 7.1 GM/DL Hematocrit 16.8 % 21.6 % Mean Corpuscular Volume 79.6 FL 75.5 FL Mean Corpuscular Hemoglobin 24.0 PG 24.6 PG Mean Corpuscular Hemoglobin 30.2 % 32.6 % Concent Red Cell Distribution Width 17.2 % 17.1 % Platelet Count 386 TH/MM3 247 TH/MM3 Mean Platelet Volume 7.2 FL 6.4 FL Neutrophils (%) (Auto) 75.7 % 71.9 % Lymphocytes (%) (Auto) 16.1 % 18.7 % Monocytes (%) (Auto) 7.4 % 8.5 % Eosinophils (%) (Auto) 0.5 % 0.6 % Basophils (%) (Auto) 0.3 % 0.3 % Neutrophils # (Auto) 14.5 TH/MM3 7.7 TH/MM3 Lymphocytes # (Auto) 3.1 TH/MM3 2.0 TH/MM3 Monocytes # (Auto) 1.4 TH/MM3 0.9 TH/MM3 Eosinophils # (Auto) 0.1 TH/MM3 0.1 TH/MM3 Basophils # (Auto) 0.1 TH/MM3 0.0 TH/MM3 CBC Comment DIFF FINAL DIFF FINAL Differential Comment Prothrombin Time 137.7 SEC Prothromb Time International 11.2 RATIO Ratio Activated Partial 85.0 SEC Thromboplast Time Fibrinogen 382 mg/dL Sodium Level 137 MEQ/L 140 MEQ/L Potassium Level 3.7 MEQ/L 3.8 MEQ/L Chloride Level 103 MEQ/L 106 MEQ/L Carbon Dioxide Level 22.7 MEQ/L 27.1 MEQ/L Anion Gap 11 MEQ/L 7 MEQ/L Blood Urea Nitrogen 17 MG/DL 14 MG/DL Creatinine 0.69 MG/DL 0.45 MG/DL Estimat Glomerular Filtration 115 ML/MIN 189 ML/MIN Rate Random Glucose 143 MG/DL 121 MG/DL Calcium Level 7.9 MG/DL 7.7 MG/DL Total Bilirubin 0.1 MG/DL 0.4 MG/DL Aspartate Amino Transf 14 U/L 14 U/L (AST/SGOT) Alanine Aminotransferase 15 U/L 13 U/L (ALT/SGPT) Alkaline Phosphatase 76 U/L 66 U/L Total Protein 5.9 GM/DL 5.3 GM/DL Albumin 2.5 GM/DL 2.2 GM/DL Lipase 80 U/L Blood Type O POSITIVE O POSITIVE Antibody Screen NEGATIVE Crossmatch Leukocyte-Reduced Leukocyte-Reduced Red Blood Red Blood Cells Cells Blood Bank Comment Nasal Screen MRSA (PCR) MRSA NOT DETECTED Phosphorus Level 2.7 MG/DL Magnesium Level 1.8 MG/DL Test 04/22/17 04:59 Prothrombin Time 14.4 SEC Prothromb Time International 1.3 RATIO Ratio Physical Examination HEENT: Normocephalic; atraumatic; no jaundice. CHEST: CTA CARDIAC: RRR ABDOMEN: Soft, nondistended, nontender; no hepatosplenomegaly; bowel sounds are present in all four quadrants. EXTREMITIES: No clubbing, cyanosis, or edema. SKIN: Normal; no rash; no jaundice. 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 (+) Coumadin use, (+) Ibuprofen use. 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 Pathology revealed ulcerated esophageal mucosal biopsy with severe acute superior to nonspecific esophagitis, GMS fungal stain negative for organisms. 4 day hx of black tarry stools and n/v, lower abdominal cramping with bm's. On admission, H&H of 5.1/16.8 and an INR of 11.2. S/P 2 units PRBC, 2 units FFP, K Sentra, and vitamin K. Today his INR is 1.3. HH 7.1/21.6. Additional unit of PRBC has been ordered. Protonix 40mg IV BID. Plan for EGD today. - Severe anemia secondary to blood loss. H&H 5.1/16.8 on admission. S/P 2 units PRBC, repeat HH 7.1/21.6. Additional unit of PRBC has been ordered. - Severe coagulopathy, coumadin toxicity. Coumadin at home for hx cva- now on hold, 2 units FFP, K Sentra, and vitamin K. INR INR is 1.3. - Leukocytosis, improved. ? reactive - Hx CVA, Hyperlipidemia, COPD per attending. PLAN: - PLan for egd today - Obtain consents - NPO - Protonix with BID dosing - Monitor HH - Transfuse as necessary - Supportive care - Further recommendations to follow based on results of above - Pt seen and examined by Dr. Mckinley and this note is written on his behalf Nasreen Au Apr 22, 2017 09:18
[2017-04-22 11:39] LABS: REVIEW FLAG FINAL
[2017-04-22 14:37] LABS: HEMATOCRIT 25.3 % (39.0-51.0); REVIEW FLAG FINAL
[2017-04-22] MEDS ORDERED: ePHEDrine/NS 25 MG/5 ML SYR IV ONE (15:00)
[2017-04-22] MEDS ORDERED: PHENYLEPH/NS 1000 MCG/10 ML SYR IV ONE (15:00)
--- NOTE | 2017-04-22 16:18 | HHI.GIFU ---
Subjective Remarks Immediate postop note: EGD with ablation of AVM Indication: GI bleed Medication: MAC Findings: Esophagus: normal Stomach: some residual food present. A single possible AVM was ablated using Bipolar cautery Duodenum, some residual food. Objective Vitals I&O Vital Signs Date Time Temp Pulse Resp B/P Pulse Ox O2 Delivery O2 Flow Rate FiO2 04/22/17 15:00 98.7 68 32 126/60 99 04/22/17 14:00 98.6 66 27 115/63 99 04/22/17 14:00 80 04/22/17 13:40 98.9 72 26 118/62 99 04/22/17 13:00 98.9 80 20 117/69 93 04/22/17 12:00 70 04/22/17 12:00 98.9 70 31 107/59 98 04/22/17 12:00 98.9 70 31 107/59 98 04/22/17 11:50 98.7 72 31 105/59 99 04/22/17 11:00 98.7 70 28 101/57 99 04/22/17 10:00 98.3 72 22 105/59 99 04/22/17 09:00 78 20 113/59 97 04/22/17 08:16 97 21 04/22/17 08:00 98.3 66 23 103/57 99 04/22/17 07:00 98.3 72 23 103/57 99 04/22/17 07:00 72 04/22/17 07:00 97 Room Air 04/22/17 04:00 98.6 68 24 107/59 98 04/22/17 00:00 Room Air 04/22/17 00:00 98.9 80 23 135/67 97 04/21/17 22:00 98.9 89 17 130/69 98 04/21/17 21:05 87 18 108/64 95 Room Air 04/21/17 19:20 88 18 113/66 96 Room Air 04/21/17 18:48 100.2 108 20 110/66 96 04/21/17 17:36 109 20 109/65 04/21/17 17:17 124 20 109/65 96 04/21/17 17:04 98.5 121 20 109/65 96 I/O 04/21/17 04/21/17 04/21/17 04/22/17 04/22/17/29/17 07:00 15:00 23:00 07:00 15:00 23:00 Intake Total 607 ml 663 ml 672 ml 84 ml Balance 607 ml 663 ml 672 ml 84 ml Intake Oral 0 ml IV Total 107 ml 663 ml 672 ml 84 ml Packed Cells 500 ml 0 ml # Voids 1 5 1 # Bowel Movements 2 1 2 1 Laboratory Laboratory Tests Test 04/21/17 04/21/17 04/22/17 04/22/17 17:25 22:20 02:15 03:18 White Blood Count 19.2 10.6 Red Blood Count 2.11 2.87 Hemoglobin 5.1 7.1 Hematocrit 16.8 21.6 Mean Corpuscular Volume 79.6 75.5 Mean Corpuscular Hemoglobin 24.0 24.6 Mean Corpuscular Hemoglobin 30.2 32.6 Concent Red Cell Distribution Width 17.2 17.1 Platelet Count 386 247 Mean Platelet Volume 7.2 6.4 Neutrophils (%) (Auto) 75.7 71.9 Lymphocytes (%) (Auto) 16.1 18.7 Monocytes (%) (Auto) 7.4 8.5 Eosinophils (%) (Auto) 0.5 0.6 Basophils (%) (Auto) 0.3 0.3 Neutrophils # (Auto) 14.5 7.7 Lymphocytes # (Auto) 3.1 2.0 Monocytes # (Auto) 1.4 0.9 Eosinophils # (Auto) 0.1 0.1 Basophils # (Auto) 0.1 0.0 CBC Comment DIFF FINAL DIFF FINAL Differential Comment Prothrombin Time 137.7 Prothromb Time International 11.2 Ratio Activated Partial 85.0 Thromboplast Time Fibrinogen 382 Sodium Level 137 140 Potassium Level 3.7 3.8 Chloride Level 103 106 Carbon Dioxide Level 22.7 27.1 Anion Gap 11 7 Blood Urea Nitrogen 17 14 Creatinine 0.69 0.45 Estimat Glomerular Filtration 115 189 Rate Random Glucose 143 121 Calcium Level 7.9 7.7 Total Bilirubin 0.1 0.4 Aspartate Amino Transf 14 14 (AST/SGOT) Alanine Aminotransferase 15 13 (ALT/SGPT) Alkaline Phosphatase 76 66 Total Protein 5.9 5.3 Albumin 2.5 2.2 Lipase 80 Blood Type O POSITIVE O POSITIVE Antibody Screen NEGATIVE Crossmatch Leukocyte-Reduced Leukocyte-Reduced Red Blood Red Blood Cells Cells Blood Bank Comment Nasal Screen MRSA (PCR) MRSA NOT DETECTED Phosphorus Level 2.7 Magnesium Level 1.8 Test 04/22/17 04/22/17 04/22/17 04/22/17 04:59 09:09 11:11 14:11 Prothrombin Time 14.4 Prothromb Time International 1.3 Ratio Blood Type O POSITIVE Crossmatch Leukocyte-Reduced Red Blood Cells Blood Bank Comment Hemoglobin 7.1 8.3 Hematocrit 22.0 25.3 Physical Exam HEENT: Pupils round and reactive to light; normocephalic; atraumatic; no jaundice. Throat is clear. NECK: Neck is supple, no JVD, no lymphadenopathy. CHEST: Chest is clear to auscultation and percussion. CARDIAC: Regular rate and rhythm with no murmur gallop or rubs. ABDOMEN: Soft, nondistended, nontender; no hepatosplenomegaly; bowel sounds are present in all four quadrants. EXTREMITIES: No clubbing, cyanosis, or edema. SKIN: Normal; no rash; no jaundice. 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 Assessment and Plan Plan ASSESSMENT: - Upper GIB, Melena. 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 (+) Coumadin use, (+) Ibuprofen use. 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 Pathology revealed ulcerated esophageal mucosal biopsy with severe acute superior to nonspecific esophagitis, GMS fungal stain negative for organisms. 4 day hx of black tarry stools and n/v, lower abdominal cramping with bm's. On admission, H&H of 5.1/16.8 and an INR of 11.2. S/P 2 units PRBC, 2 units FFP, K Sentra, and vitamin K. Today his INR is 1.3. HH 7.1/21.6. Additional unit of PRBC has been ordered. Protonix 40mg IV BID. Plan for EGD today. - Severe anemia secondary to blood loss. H&H 5.1/16.8 on admission. S/P 2 units PRBC, repeat HH 7.1/21.6. Additional unit of PRBC has been ordered. - Severe coagulopathy, coumadin toxicity. Coumadin at home for hx cva- now on hold, 2 units FFP, K Sentra, and vitamin K. INR INR is 1.3. - Leukocytosis, improved. ? reactive - Hx CVA, Hyperlipidemia, COPD per attending. - EGD with ablation of AVM performed today 04/22 the AVM is somewhat questionable. Not actively bleeding, uncertain if that is what bled. He also showed evidence of mild gastroparesis PLAN: - Colonoscopy tomorrow - Obtain consents - NPO - Protonix with BID dosing - Monitor HH - Transfuse as necessary - Supportive care Octaviano Mckinley MD Apr 22, 2017 16:18
[2017-04-22] MEDS ORDERED: EPINEPHrine HCL (1:10,000) 1 MG/10 ML SYRINGE OTHER ONE (16:48)
[2017-04-22] MEDS ORDERED: PROPOFOL 200 MG/20 ML AMP IV ONE (16:48)
[2017-04-22] MEDS ORDERED: MAGNESIUM CITRATE SOLN 300 ML BTL PO ONE (17:00)
[2017-04-22] MEDS ORDERED: BISACODYL EC 5 MG TABEC PO ONE (21:00)
[2017-04-23] VITALS (8 sets, daily range): BP systolic 105–146; BP diastolic 58–64; PULSE 53–88; RESP 17–21; TEMP 96.7–98.3; O2SAT 95–99
[2017-04-23] MEDS: CHLORHEXIDINE GLUCONATE 2 % 1 PACK (2 CLOTHS) TOP SCH (03:56)
[2017-04-23] MEDS: PANTOPRAZOLE SODIUM 40 MG VIAL IV SCH ×2 (08:43→20:39)
[2017-04-23] MEDS: SODIUM CHLORIDE 0.9% FLUSH 10 ML FLUSH IV FLUSH SCH ×2 (09:00→20:40)
[2017-04-23] MEDS: DOCUSATE SODIUM 50 MG/SENNA 8.6 MG TAB PO SCH ×2 (09:00→20:40)
[2017-04-23] MEDS ORDERED: PROPOFOL 200 MG/20 ML AMP IV ONE (09:11)
--- NOTE | 2017-04-23 09:23 | HHI.GIFU ---
Subjective Remarks Immediate post procedure note: Attempted colonoscopy Indication: GI bleed Meds: MAC Findings: Inadequate prep. Melenic stool. Review of orders indicated he received only one bottle of mag citrate instead of two. Objective Vitals I&O Vital Signs Date Time Temp Pulse Resp B/P Pulse Ox O2 Delivery O2 Flow Rate FiO2 04/23/17 07:47 96 21 04/23/17 07:00 96 Room Air 04/23/17 04:00 98.1 70 21 121/58 95 04/23/17 00:00 98.0 88 17 146/64 97 04/22/17 20:27 99 04/22/17 20:00 98.3 74 16 123/60 98 04/22/17 19:30 Room Air 04/22/17 18:00 80 04/22/17 18:00 97.7 78 30 160/74 95 04/22/17 17:00 97.7 78 28 111/56 95 04/22/17 17:00 97.7 78 28 111/56 95 04/22/17 16:38 98.7 74 28 118/63 100 04/22/17 16:23 98.7 64 18 95/52 100 04/22/17 16:00 78 04/22/17 16:00 98.7 78 30 83/48 100 04/22/17 15:00 98.7 68 32 126/60 99 04/22/17 14:00 98.6 66 27 115/63 99 04/22/17 14:00 80 04/22/17 13:40 98.9 72 26 118/62 99 04/22/17 13:00 98.9 80 20 117/69 93 04/22/17 12:00 70 04/22/17 12:00 98.9 70 31 107/59 98 04/22/17 12:00 98.9 70 31 107/59 98 04/22/17 11:50 98.7 72 31 105/59 99 04/22/17 11:00 98.7 70 28 101/57 99 04/22/17 10:00 98.3 72 22 105/59 99 I/O 04/22/17 04/22/17 04/22/17 04/23/17 04/23/17 04/23/17 07:00 15:00 23:00 07:00 15:00 23:00 Intake Total 663 ml 672 ml 1126 ml 664 ml Output Total 650 ml Balance 663 ml 672 ml 1126 ml 14 ml Intake Oral 0 ml 400 ml IV Total 663 ml 672 ml 726 ml 664 ml Packed Cells 0 ml Output Urine Total 650 ml # Voids 1 5 8 # Bowel Movements 1 2 4 4 Laboratory Laboratory Tests Test 04/22/17 04/22/17 11:11 14:11 Hemoglobin 7.1 8.3 Hematocrit 22.0 25.3 Physical Exam HEENT: Pupils round and reactive to light; normocephalic; atraumatic; no jaundice. Throat is clear. NECK: Neck is supple, no JVD, no lymphadenopathy. CHEST: Chest is clear to auscultation and percussion. CARDIAC: Regular rate and rhythm with no murmur gallop or rubs. ABDOMEN: Soft, nondistended, nontender; no hepatosplenomegaly; bowel sounds are present in all four quadrants. EXTREMITIES: No clubbing, cyanosis, or edema. SKIN: Normal; no rash; no jaundice. 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 Assessment and Plan Plan ASSESSMENT: - Upper GIB, Melena. 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 (+) Coumadin use, (+) Ibuprofen use. 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 Pathology revealed ulcerated esophageal mucosal biopsy with severe acute superior to nonspecific esophagitis, GMS fungal stain negative for organisms. 4 day hx of black tarry stools and n/v, lower abdominal cramping with bm's. On admission, H&H of 5.1/16.8 and an INR of 11.2. S/P 2 units PRBC, 2 units FFP, K Sentra, and vitamin K. Today his INR is 1.3. HH 7.1/21.6. Additional unit of PRBC has been ordered. Protonix 40mg IV BID. Plan for EGD today. - Severe anemia secondary to blood loss. H&H 5.1/16.8 on admission. S/P 2 units PRBC, repeat HH 7.1/21.6. Additional unit of PRBC has been ordered. - Severe coagulopathy, coumadin toxicity. Coumadin at home for hx cva- now on hold, 2 units FFP, K Sentra, and vitamin K. INR INR is 1.3. - Leukocytosis, improved. ? reactive - Hx CVA, Hyperlipidemia, COPD per attending. - EGD with ablation of AVM performed today 04/22 the AVM is somewhat questionable. Not actively bleeding, uncertain if that is what bled. He also showed evidence of mild gastroparesis - Colonoscopy attempt today failed due to inadequate prep. Will retry tomorrow. PLAN: - regular breakfast then clear liquids - reprep with two bottles of mag citrate and 20mg dulcolax - Colonoscopy tomorrow - Protonix with BID dosing - Monitor HH - Transfuse as necessary - Supportive care Otcaviano Mckniley MD Apr 23, 2017 09:23
[2017-04-23] MEDS: SODIUM CHLOR 0.9% 1000 ML INJ 1,000 ML IV SCH ×2 (09:46→20:40)
--- NOTE | 2017-04-23 10:58 | HHI.PR ---
Subjective Remarks Follow-up GI bleed, anemia. The patient denies pain currently. Denies nausea or vomiting. Colonoscopy not done secondary to poor prep. Objective Vitals Vital Signs Date Time Temp Pulse Resp B/P Pulse Ox O2 Delivery O2 Flow Rate FiO2 04/23/17 10:00 53 04/23/17 08:00 82 04/23/17 08:00 98.3 82 20 105/63 97 04/23/17 07:47 96 21 04/23/17 07:00 96 Room Air 04/23/17 04:00 98.1 70 21 121/58 95 04/23/17 00:00 98.0 88 17 146/64 97 04/22/17 20:27 99 04/22/17 20:00 98.3 74 16 123/60 98 04/22/17 19:30 Room Air 04/22/17 18:00 80 04/22/17 18:00 97.7 78 30 160/74 95 04/22/17 17:00 97.7 78 28 111/56 95 04/22/17 17:00 97.7 78 28 111/56 95 04/22/17 16:38 98.7 74 28 118/63 100 04/22/17 16:23 98.7 64 18 95/52 100 04/22/17 16:00 78 04/22/17 16:00 98.7 78 30 83/48 100 04/22/17 15:00 98.7 68 32 126/60 99 04/22/17 14:00 98.6 66 27 115/63 99 04/22/17 14:00 80 04/22/17 13:40 98.9 72 26 118/62 99 04/22/17 13:00 98.9 80 20 117/69 93 04/22/17 12:00 70 04/22/17 12:00 98.9 70 31 107/59 98 04/22/17 12:00 98.9 70 31 107/59 98 04/22/17 11:50 98.7 72 31 105/59 99 04/22/17 11:00 98.7 70 28 101/57 99 I/O 04/22/17 04/22/17 04/22/17 04/23/17 04/23/17 04/23/17 07:00 15:00 23:00 07:00 15:00 23:00 Intake Total 663 ml 672 ml 1126 ml 664 ml Output Total 650 ml Balance 663 ml 672 ml 1126 ml 14 ml Intake Oral 0 ml 400 ml IV Total 663 ml 672 ml 726 ml 664 ml Packed Cells 0 ml Output Urine Total 650 ml # Voids 1 5 8 # Bowel Movements 1 2 4 4 Result Diagram: 04/22/17 1411 04/22/17 0215 Imaging Last Impressions Head CT 04/22/17 0751 Signed Impressions: Service Date/Time: March 04:42 - CONCLUSION: No acute findings. 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 Dagoberto English MD Objective Remarks General: Thin elderly male in no acute distress. Heart: Regular rate and rhythm. No murmur. Lungs: Clear to auscultation bilaterally. No wheezes, rales, or rhonchi. Breathing is nonlabored. Abdomen: Soft, nontender, nondistended. Extremities: No lower extremity edema. Psych: Alert. Expressive aphasia. Procedures 04/22/17 EGD 04/23/13 colonoscopy Urinary Catheter: No Vascular Central Line Catheter: No A/P Problem List: (1) Upper GI bleed ICD Code: K92.2 Status: Acute (2) Elevated INR ICD Code: R79.1 Status: Resolved (3) Anemia ICD Code: D64.9 Status: Acute (4) History of CVA with residual deficit ICD Code: I69.30 Status: Chronic Assessment and Plan 1. GI bleed, anemia secondary to blood loss: Continue IV Protonix. Appreciate GI recommendations. Status post EGD with cautery of AVM. Colonoscopy not done secondary to poor prep. Plan for repeat colonoscopy tomorrow. 2. Coagulopathy: Coumadin on hold. Patient received in K, FFP. INR decreased. 3. Dyslipidemia: Home medications on hold until okay with GI. 4. DVT prophylaxis: SCDs, CHANTALE juan miguele. Avoid chemical prophylaxis secondary to bleeding. Favio Canseco MD Apr 23, 2017 10:58
[2017-04-23] MEDS ORDERED: MAGNESIUM CITRATE SOLN 300 ML BTL PO ONE ×2 (13:00→15:00)
[2017-04-23 20:28] LABS: AUTOMATED NEUTROPHIL # 5.6 TH/MM3 (1.8-7.7); BASOPHIL % 0.4 % (0.0-2.0); EOSINOPHIL # 0.4 TH/MM3 (0-0.4); EOSINOPHIL % 4.9 % (0.0-4.0); HEMATOCRIT 24.3 % (39.0-51.0); HEMO FLAGS DIFF FINAL; LYMPH % 18.5 % (9.0-44.0); LYMPHOCYTE # 1.5 TH/MM3 (1.0-4.8); MEAN CELL VOLUME 78.1 FL (80.0-100.0); MEAN CORPUSCULAR HEMOGLOBIN 25.5 PG (27.0-34.0); MEAN CORPUSCULAR HGB CONC 32.7 % (32.0-36.0); MONO % 8.7 % (0.0-8.0); NEUT % 67.5 % (16.0-70.0); PLATELET COUNT 297 TH/MM3 (150-450); RED BLOOD COUNT 3.11 MIL/MM3 (4.50-5.90); RED CELL DISTRIBUTION WIDTH 17.8 % (11.6-17.2); WHITE BLOOD COUNT 8.3 TH/MM3 (4.0-11.0)
[2017-04-23] MEDS ORDERED: BISACODYL EC 5 MG TABEC PO ONE (20:30)
[2017-04-23 20:52] LABS: BICARBONATE 25.5 MEQ/L (21.0-32.0)
[2017-04-23 21:02] LABS: POTASSIUM 2.9 MEQ/L (3.5-5.1)
--- NOTE | 2017-04-23 21:10 | MR ---
cc: OCTAVIANO MCKINLEY MD,WALTER TELLO DATE OF SURGERY 04/22/17 PROCEDURE Esophagogastroduodenoscopy with ablation of AVM. INDICATION GI bleed while on Coumadin. REFERRING PHYSICIAN Dr. Santana DETAILS OF PROCEDURE After informed consent was obtained, the patient was placed in the left side down position. He was sedated by the Anesthesia service. After adequate sedation was achieved, the Pentax video gastroscope was inserted in the oropharynx and advanced through the esophagus into the stomach. There was some residual food there. The scope was passed through the stomach into the duodenal bulb. There was also some residual food there. The scope was passed into the descending duodenum. It was then withdrawn slowly examining the mucosal surfaces carefully. Retroflexed examination was performed. The scope was then straightened and introduced again all the way to the duodenum, the descending portion and withdrawn slowly. No definite AVMs could be identified. No ulcerations were seen. A small possible AVM was seen on the wall of the stomach. This was ablated using bipolar cautery. No injection of epinephrine was required. This was a possible AVM but the identity of the lesion was uncertain. The scope was then withdrawn out through the esophagus and the procedure was terminated. He tolerated the procedure well and remained in the intensive care unit in stable condition. FINDINGS 1. The esophagus was normal. 2. In the stomach there was some residual food present. A single, possible AVM was ablated using bipolar cautery. 3. The duodenum contained also some residual food but no AVMs could be identified. IMPRESSION 1. 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 2. Can not rule out lower GI source of bleed. 3. Gastroparesis. PLAN 1. Will prepare him for colonoscopy tomorrow to rule out lower GI source of bleeding. 2. He should remain on a clear liquid diet until his procedure is performed. NPO after midnight. Octaviano Mckinley MD HHS/EO /4:31 PM /8:59 PM
[2017-04-23] MEDS ORDERED: POTASSIUM CHLOR 20 MEQ PREMIX 100 ML IV ONE (21:15)
[2017-04-23] MEDS ORDERED: POTASSIUM CHLORIDE 25 MEQ EFFERVESCENT TAB PO ONE (21:15)
[2017-04-24] VITALS: BP 123/70; PULSE 73; RESP 18; TEMP 96.9; O2SAT 96
[2017-04-24] MEDS: CHLORHEXIDINE GLUCONATE 2 % 1 PACK (2 CLOTHS) TOP SCH (04:00)
[2017-04-24 06:29] LABS: AUTOMATED NEUTROPHIL # 5.6 TH/MM3 (1.8-7.7); BASOPHIL # 0.1 TH/MM3 (0-0.2); BASOPHIL % 0.8 % (0.0-2.0); EOSINOPHIL # 0.5 TH/MM3 (0-0.4); HEMATOCRIT 23.9 % (39.0-51.0); HEMO FLAGS DIFF FINAL; LYMPH % 15.6 % (9.0-44.0); LYMPHOCYTE # 1.3 TH/MM3 (1.0-4.8); MEAN CELL VOLUME 77.8 FL (80.0-100.0); MEAN CORPUSCULAR HEMOGLOBIN 25.7 PG (27.0-34.0); MONO % 7.5 % (0.0-8.0); NEUT % 70.1 % (16.0-70.0); PLATELET COUNT 299 TH/MM3 (150-450); RED BLOOD COUNT 3.07 MIL/MM3 (4.50-5.90); RED CELL DISTRIBUTION WIDTH 18.1 % (11.6-17.2)
[2017-04-24 07:05] LABS: BICARBONATE 27.7 MEQ/L (21.0-32.0); POTASSIUM 3.7 MEQ/L (3.5-5.1)
[2017-04-24 08:00] VITALS: BP 120/63; PULSE 78; RESP 19; TEMP 97.3; O2SAT 99
[2017-04-24] MEDS: PANTOPRAZOLE SODIUM 40 MG VIAL IV SCH ×2 (08:43→20:58)
[2017-04-24] MEDS: SODIUM CHLORIDE 0.9% FLUSH 10 ML FLUSH IV FLUSH SCH ×2 (08:43→20:59)
[2017-04-24] MEDS: DOCUSATE SODIUM 50 MG/SENNA 8.6 MG TAB PO SCH ×2 (08:43→20:56)
[2017-04-24] MEDS: SODIUM CHLOR 0.9% 1000 ML INJ 1,000 ML IV SCH ×2 (08:44→20:30)
[2017-04-24 12:00] VITALS: BP 110/63; PULSE 78; RESP 20; TEMP 97.9; O2SAT 97
--- NOTE | 2017-04-24 14:35 | HHI.PR ---
Subjective Remarks Follow up GI bleed, anemia. The patient has no complaints at this time. Denies pain, dyspnea, nausea, vomiting. States that he has had multiple bowel movements. He is not aware of any blood. His nurse reports that she received an report that his stools were dark. Objective Vitals Vital Signs Date Time Temp Pulse Resp B/P Pulse Ox O2 Delivery O2 Flow Rate FiO2 04/24/17 12:00 97.9 78 20 110/63 97 04/24/17 08:35 Room Air 04/24/17 08:00 97.3 78 19 120/63 99 04/24/17 00:00 96.9 73 18 123/70 96 04/23/17 20:00 96.7 73 18 110/60 99 I/O 04/23/17 04/23/17 04/23/17 04/24/17 04/24/17 04/24/17 07:00 15:00 23:00 07:00 15:00 23:00 Intake Total 664 ml 300 ml 1012 ml 644 ml 731 ml Output Total 650 ml 600 ml 1100 ml 1500 ml Balance 14 ml -300 ml 1012 ml -456 ml -769 ml Intake Oral 300 ml 240 ml 0 ml 0 ml IV Total 664 ml 772 ml 644 ml 731 ml Output Urine Total 650 ml 600 ml 1100 ml 700 ml Stool Total 800 ml # Voids 1 # Bowel Movements 4 2 1 6 Result Diagram: 04/24/17 0335 04/24/17 0335 Imaging Last Impressions Head CT 04/22/17 0751 Signed Impressions: Service Date/Time: March 04:42 - CONCLUSION: No acute findings. 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 Dagoberto English MD Objective Remarks General: Thin elderly male in no acute distress. Heart: Regular rate and rhythm. No murmur. Lungs: Clear to auscultation bilaterally. No wheezes, rales, or rhonchi. Breathing is nonlabored. Abdomen: Soft, nontender, nondistended. Extremities: No lower extremity edema. Psych: Alert. Expressive aphasia. Procedures 04/22/17 EGD 04/23/13 colonoscopy Urinary Catheter: Yes Assessment to: Continue Levine insert reason: Obstruction/Retention Vascular Central Line Catheter: No A/P Problem List: (1) Upper GI bleed ICD Code: K92.2 Status: Acute (2) Elevated INR ICD Code: R79.1 Status: Resolved (3) Anemia ICD Code: D64.9 Status: Acute (4) History of CVA with residual deficit ICD Code: I69.30 Status: Chronic Assessment and Plan 1. GI bleed, anemia secondary to blood loss: Continue IV Protonix. Appreciate GI recommendations. Status post EGD with cautery of AVM. Plan is for colonoscopy today per gastroenterology. Patient is nothing by mouth. 2. Coagulopathy: Coumadin on hold. Patient received in K, FFP. INR decreased. 3. Dyslipidemia: Home medications on hold until okay with GI. 4. DVT prophylaxis: SCDs, CHANTALE pat. Avoid chemical prophylaxis secondary to bleeding. 5. History of CVA: Unable to use anticoagulation secondary to GI bleed. Patient has residual right-sided weakness and aphasia. Favio Canseco MD Apr 24, 2017 14:35
--- NOTE | 2017-04-24 14:38 | MR ---
cc: OCTAVIANO MCKINLEY JR., MD DATE: 04/23/2017. REFERRING PHYSICIAN: Favio Canseco MD. OPERATION: Attempted colonoscopy. ENDOSCOPIST: Octaviano Mckinley MD. INDICATION: GI bleed. DESCRIPTION OF THE PROCEDURE IN DETAIL: After informed consent was obtained, the patient was placed in the left-side down position. He was sedated by the anesthesia service. After adequate sedation was achieved, the Pentax videoscope was inserted in the anal canal. It was advanced up about 10 cm but could not be advanced further because of the presence of solid melenic stool. It was clear the patient was inadequately prepped. The procedure was then terminated. He tolerated the procedure well and remained in intensive care in stable condition. FINDINGS: 1. The rectum contained solid stool that appeared melenic. 2. Review of the records indicates that he received only about half of his prep due to an error in the orders. IMPRESSION: 1. Inadequately prepped colon. 2. GI bleed. PLAN: Will re-prep him today for a colonoscopy tomorrow so that he can resume his anticoagulant medicine as appropriate. Octaviano Mckinley MD [facility] /9:40 AM /2:34 PM
[2017-04-24 16:00] VITALS: BP 124/71; PULSE 84; RESP 19; TEMP 97.1; O2SAT 96
[2017-04-24] MEDS ORDERED: MAGNESIUM CITRATE SOLN 300 ML BTL PO ONE (18:00)
[2017-04-24 20:00] VITALS: BP 124/71; PULSE 75; RESP 22; TEMP 97; O2SAT 98
--- NOTE | 2017-04-24 20:29 | HHI.GIFU ---
Subjective Remarks Comfortable in bed no new complaints no active bleed Objective Vitals I&O Vital Signs Date Time Temp Pulse Resp B/P Pulse Ox O2 Delivery O2 Flow Rate FiO2 04/24/17 16:00 97.1 84 19 124/71 96 04/24/17 12:00 97.9 78 20 110/63 97 04/24/17 08:35 Room Air 04/24/17 08:00 97.3 78 19 120/63 99 04/24/17 00:00 96.9 73 18 123/70 96 I/O 04/23/17 04/23/17 04/23/17 04/24/17 04/24/17 04/24/17 07:00 15:00 23:00 07:00 15:00 23:00 Intake Total 664 ml 300 ml 1012 ml 644 ml 731 ml Output Total 650 ml 600 ml 1100 ml 1500 ml Balance 14 ml -300 ml 1012 ml -456 ml -769 ml Intake Oral 300 ml 240 ml 0 ml 0 ml IV Total 664 ml 772 ml 644 ml 731 ml Output Urine Total 650 ml 600 ml 1100 ml 700 ml Stool Total 800 ml # Voids 1 # Bowel Movements 4 2 1 6 Laboratory Laboratory Tests Test 04/24/17 03:35 White Blood Count 8.0 Red Blood Count 3.07 Hemoglobin 7.9 Hematocrit 23.9 Mean Corpuscular Volume 77.8 Mean Corpuscular Hemoglobin 25.7 Mean Corpuscular Hemoglobin 33.0 Concent Red Cell Distribution Width 18.1 Platelet Count 299 Mean Platelet Volume 6.9 Neutrophils (%) (Auto) 70.1 Lymphocytes (%) (Auto) 15.6 Monocytes (%) (Auto) 7.5 Eosinophils (%) (Auto) 6.0 Basophils (%) (Auto) 0.8 Neutrophils # (Auto) 5.6 Lymphocytes # (Auto) 1.3 Monocytes # (Auto) 0.6 Eosinophils # (Auto) 0.5 Basophils # (Auto) 0.1 CBC Comment DIFF FINAL Differential Comment Sodium Level 146 Potassium Level 3.7 Chloride Level 112 Carbon Dioxide Level 27.7 Anion Gap 6 Blood Urea Nitrogen 3 Creatinine 0.31 Estimat Glomerular Filtration 291 Rate Random Glucose 76 Calcium Level 7.7 Physical Exam NECK: Neck is supple, CHEST: Chest is clear to auscultation and percussion. CARDIAC: Regular rate and rhythm with no murmur gallop or rubs. ABDOMEN: Soft, nondistended, nontender; no hepatosplenomegaly; bowel sounds are present in all four quadrants. EXTREMITIES: No clubbing, cyanosis, or edema. SKIN: Normal; no rash; no jaundice. INSULATOR APPRENTICE: No focal deficits; alert and oriented times three. Assessment and Plan Plan ASSESSMENT: - Upper GIB, Melena. 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 (+) Coumadin use, (+) Ibuprofen use. 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 Pathology revealed ulcerated esophageal mucosal biopsy with severe acute superior to nonspecific esophagitis, GMS fungal stain negative for organisms. 4 day hx of black tarry stools and n/v, lower abdominal cramping with bm's. On admission, H&H of 5.1/16.8 and an INR of 11.2. S/P 2 units PRBC, 2 units FFP, K Sentra, and vitamin K. Today his INR is 1.3. HH 7.1/21.6. Additional unit of PRBC has been ordered. Protonix 40mg IV BID. Plan for EGD today. - Severe anemia secondary to blood loss. H&H 5.1/16.8 on admission. S/P 2 units PRBC, repeat HH 7.1/21.6. Additional unit of PRBC has been ordered. - Severe coagulopathy, coumadin toxicity. Coumadin at home for hx cva- now on hold, 2 units FFP, K Sentra, and vitamin K. INR INR is 1.3. - Leukocytosis, improved. ? reactive - Hx CVA, Hyperlipidemia, COPD per attending. - EGD with ablation of AVM performed today 04/22 the AVM is somewhat questionable. Not actively bleeding, uncertain if that is what bled. He also showed evidence of mild gastroparesis - Colonoscopy attempt today failed due to inadequate prep. Will retry tomorrow. PLAN: - Colonoscopy tomorrow - Protonix with BID dosing - Monitor HH - Transfuse as necessary - Supportive care Sage Del Cid MD Apr 24, 2017 20:29
[2017-04-25] VITALS: BP 118/70; PULSE 72; RESP 20; TEMP 97.5; O2SAT 98
[2017-04-25] MEDS ORDERED: POVIDONE IODINE 5% (ANTISEPSIS KIT) 4 APPLICATIONS EACH NARE PRN (01:30)
[2017-04-25] MEDS ORDERED: LACTATED RINGER'S 1000 ML IV PRN (01:30)
[2017-04-25] MEDS ORDERED: CHLORHEXIDINE GLUCONATE 2 % 1 PACK (2 CLOTHS) TOPICAL PRN (01:30)
[2017-04-25] MEDS: CHLORHEXIDINE GLUCONATE 2 % 1 PACK (2 CLOTHS) TOP SCH (04:00)
[2017-04-25] MEDS: SODIUM CHLOR 0.9% 1000 ML INJ 1,000 ML IV SCH (04:11)
[2017-04-25 08:00] VITALS: BP 115/64; PULSE 67; RESP 19; TEMP 97.9; O2SAT 95
[2017-04-25] MEDS: PANTOPRAZOLE SODIUM 40 MG VIAL IV SCH ×2 (08:00→20:38)
[2017-04-25] MEDS: DOCUSATE SODIUM 50 MG/SENNA 8.6 MG TAB PO SCH ×2 (09:00→20:38)
[2017-04-25] MEDS: SODIUM CHLORIDE 0.9% FLUSH 10 ML FLUSH IV FLUSH SCH ×2 (09:00→20:38)
[2017-04-25] MEDS ORDERED: PROPOFOL 200 MG/20 ML AMP IV PUSH ONE (09:05)
[2017-04-25] MEDS ORDERED: DO NOT ADM ANY ANTICOAGULANT DRUGS PRN (09:09)
--- NOTE | 2017-04-25 09:10 | GIPROC ---
[facility] [address] [facility]. [facility] [place], [address] COLONOSCOPY PROCEDURE REPORT EXAM DATE: 04/25/2017 PATIENT NAME: Angel Luis Campbell MR #: [id number] BIRTHDATE: 1950 ENDOSCOPIST: Juany Mancera MD ORDER #: [id number] COMMUNICATIONS ADVISOR: Amy Perdomo and Wai Lamb STATUS: inpatient INDICATIONS: The patient is a 66 yr old male here for a colonoscopy due to aneami. gi bleeding , poor prep on prior colonoscopies PROCEDURE PERFORMED: clip application MEDICATIONS: Per Anesthesia and None. PREP QUALITY: fair PREP TYPE:GoLytely ESTIMATED BLOOD LOSS: None CONSENT: The patient understands the risks and benefits of the procedure and understands that these risks include, but are not limited to: sedation, allergic reaction, infection, perforation and/or bleeding. Alternative means of evaluation and treatment include, among others: physical exam, x-rays, and/or surgical intervention. The patient elects to proceed with this endoscopic procedure. medical equipment was checked for proper function. Hand hygiene and appropriate measures for infection prevention was taken. After the risks, benefits and alternatives of the procedure were thoroughly explained, Informed consent was verified, confirmed and timeout was successfully executed by the treatment team. A digital exam revealed external hemorrhoids The Pentax [id number] endoscope was introduced through the anus and advanced to the cecum, which was identified by both the appendix and ileocecal valve. The instrument was then slowly withdrawn as the colon was fully examined. COLON FINDINGS: Mass hepatic flexure--biopsies diverticulosis sigmoid,descending polyp pedunculated descending colon-1 cm-hot snare polypectomy with complete removal, 2 clips applied at the base to prevent bleeding polyp sessile sigmoid colon-6 mm-hot snare polypectomy with complete removal. Retroflexed views revealed internal hemorrhoids and Retroflexed views revealed small internal hemorrhoids The scope was then completely withdrawn from the patient and the procedure terminated. PROCEDURE WITHDRAWAL TIME:14minutes ADVERSE EVENTS: There were no complications. IMPRESSIONS: 1. Mass hepatic flexure--biopsies diverticulosis sigmoid,descending polyp pedunculated descending colon-1 cm-hot snare polypectomy with complete removal, 2 clips applied at the base to prevent bleeding polyp sessile sigmoid colon-6 mm-hot snare polypectomy with complete removal 2. Retroflexed views revealed internal hemorrhoids 3. Retroflexed views revealed small internal hemorrhoids 4. Revealed external hemorrhoids RECOMMENDATIONS: 1. Await biopsy results. Biopsy results will not be ready for 7-10 days. If you don't hear from us in two weeks, call our office for results. 2. Benefiber 2 tsp daily 3. Probiotics from any [employer] or health food store 4. Ct abdomen/pelvis cea level general surgery consult resume diet RECALL: Colonoscopy, pending biopsy results Juany Mancera MD eSigned: Juany Mancera MD 04/25/2017 9:09 AM cc: PATIENT NAME: Angel Luis Campbell MR#: [id number]
[2017-04-25] MEDS ORDERED: DIATRIZOATE MEGLUM/DIATRIZOATE SOD 9 ML CUP PO ONE (11:15)
[2017-04-25 11:50] VITALS: BP 131/67; PULSE 69; RESP 20; TEMP 98; O2SAT 98
[2017-04-25 13:05] LABS: AUTOMATED NEUTROPHIL # 7.6 TH/MM3 (1.8-7.7); BASOPHIL # 0.1 TH/MM3 (0-0.2); BASOPHIL % 0.5 % (0.0-2.0); EOSINOPHIL # 0.4 TH/MM3 (0-0.4); EOSINOPHIL % 4.2 % (0.0-4.0); HEMATOCRIT 25.9 % (39.0-51.0); HEMO FLAGS DIFF FINAL; LYMPH % 10.9 % (9.0-44.0); LYMPHOCYTE # 1.1 TH/MM3 (1.0-4.8); MEAN CELL VOLUME 78.1 FL (80.0-100.0); MEAN CORPUSCULAR HGB CONC 33.3 % (32.0-36.0); MONO % 7.2 % (0.0-8.0); NEUT % 77.2 % (16.0-70.0); PLATELET COUNT 341 TH/MM3 (150-450); RED BLOOD COUNT 3.31 MIL/MM3 (4.50-5.90); RED CELL DISTRIBUTION WIDTH 18.5 % (11.6-17.2); WHITE BLOOD COUNT 9.8 TH/MM3 (4.0-11.0)
[2017-04-25] MEDS ORDERED: IOHEXOL 350 MG/ML 10 ML VIAL (for RAD DIAG) IV ONE (13:20)
[2017-04-25 13:26] LABS: BICARBONATE 26.6 MEQ/L (21.0-32.0); POTASSIUM 3.1 MEQ/L (3.5-5.1)
--- NOTE | 2017-04-25 13:26 | HHI.PR ---
Subjective Remarks Follow up GI bleed. Patient had colonoscopy, which revealed a colon mass. Going for CT now. Denies abdominal pain, dyspnea, cough, nausea, vomiting. Objective Vitals Vital Signs Date Time Temp Pulse Resp B/P Pulse Ox O2 Delivery O2 Flow Rate FiO2 04/25/17 11:50 98.0 69 20 131/67 98 04/25/17 09:15 70 16 120/77 98 Room Air 04/25/17 09:07 98.2 68 16 128/79 99 Room Air 04/25/17 08:00 97.9 67 19 115/64 95 04/25/17 00:00 97.5 72 20 118/70 98 04/24/17 20:00 97.0 75 22 124/71 98 04/24/17 16:00 97.1 84 19 124/71 96 I/O 04/24/17 04/24/17 04/24/17 04/25/17 04/25/17 04/25/17 07:00 15:00 23:00 07:00 15:00 23:00 Intake Total 644 ml 731 ml 847 ml 738 ml 0 ml Output Total 1100 ml 1500 ml 350 ml 1100 ml Balance -456 ml -769 ml 497 ml -362 ml 0 ml Intake Oral 0 ml 0 ml 320 ml 0 ml 0 ml IV Total 644 ml 731 ml 527 ml 738 ml Output Urine Total 1100 ml 700 ml 350 ml 1100 ml Stool Total 800 ml # Bowel Movements 6 2 0 Result Diagram: 04/25/17 1211 04/24/17 0335 Imaging Last Impressions Head CT 04/22/17 0751 Signed Impressions: Service Date/Time: March 04:42 - CONCLUSION: No acute findings. 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 Dagoberto English MD Objective Remarks General: Thin elderly male in no acute distress. Heart: Regular rate and rhythm. No murmur. Lungs: Clear to auscultation bilaterally. No wheezes, rales, or rhonchi. Breathing is nonlabored. Abdomen: Soft, nontender, nondistended. Extremities: No lower extremity edema. Right sided weakness is noted. Psych: Alert. Expressive aphasia. Procedures 04/22/17 EGD 04/23/13 colonoscopy Urinary Catheter: No Vascular Central Line Catheter: No A/P Problem List: (1) Upper GI bleed ICD Code: K92.2 Status: Acute (2) Elevated INR ICD Code: R79.1 Status: Resolved (3) Anemia ICD Code: D64.9 Status: Acute (4) History of CVA with residual deficit ICD Code: I69.30 Status: Chronic Assessment and Plan 1. GI bleed, anemia secondary to blood loss: Continue IV Protonix. Appreciate GI recommendations. Status post EGD with cautery of AVM. S/P colonoscopy, which revealed a colon mass. General surgery consulted. CT abdomen pending. 2. Coagulopathy: Coumadin on hold. Patient received in K, FFP. INR decreased. 3. Dyslipidemia: Home medications on hold until okay with GI. 4. DVT prophylaxis: SCDs, CHANTALE hose. Avoid chemical prophylaxis secondary to bleeding. 5. History of CVA: Unable to use anticoagulation secondary to GI bleed. Patient has residual right-sided weakness and aphasia. Favio Canseco MD Apr 25, 2017 13:26
--- NOTE | 2017-04-25 13:38 | RADRPT ---
EXAM DATE/TIME: 04/25/2017 13:19 [facility] COMPARISON: No previous studies available for comparison. INDICATIONS : Evaluate for metastatic disease. IV CONTRAST: 100 cc Omnipaque 350 (iohexol) IV ; Cumulative dose for multiple exams. ORAL CONTRAST: No oral contrast ingested. RADIATION DOSE: 9.16 CTDIvol (mGy) ; Combined studies - Thorax/Abdomen/Pelvis MEDICAL HISTORY : Stroke. Cardiovascular disease Chronic obstructive pulmonary disease.ETOH daily SURGICAL HISTORY : None. ENCOUNTER: Initial ACUITY: 1 day PAIN SCALE: 0/10 LOCATION: Bilateral abdomen. TECHNIQUE: Volumetric scanning of the abdomen and pelvis was performed. Using automated exposure control and ad justment of the mA and/or kV according to patient size, radiation dose was kept as low as reasonably achievable to obtain optimal diagnostic quality images. DICOM format image data is available electro nically for review and comparison. FINDINGS: Lung bases demonstrate small bilateral pleural effusions. Small 3 mm subpleural nodule right middle l obe probably benign. No acute findings in the liver. No evidence for metastatic disease to the liver. Spleen, adrenals, ki dneys and pancreas unremarkable. No calcified gallstones or biliary ductal dilatation. There is some questionable mural thickening of the colon near the hepatic flexure. There is a history of colonic mass. No pathologically enlarged lymph nodes are identified within the abdomen and pelvis . There is colonic diverticulosis, especially sigmoid without diverticulitis. No bowel obstruction. No free air or significant free fluid. No acute bony abnormalities. Previous screw fixation proximal rig ht femur. Bones are osteopenic. Mild scoliosis. CONCLUSION: 1. No evidence for metastatic disease to the abdomen and pelvis. 2. Focal mural thickening and near the hepatic flexure with history of colonic mass. 3. Colonic diverticulosis without diverticulitis. Prostatic enlargement. Previous screw fixation righ t femur. Tutu Givens MD on April 25, 2017 at 13:29 Board Certified Radiologist. This report was verified electronically.
--- NOTE | 2017-04-25 13:43 | RADRPT ---
EXAM DATE/TIME: 04/25/2017 13:19 [facility] COMPARISON: No previous studies available for comparison. INDICATIONS : Evaluate for metastatic disease. IV CONTRAST: 100 cc Omnipaque 350 (iohexol) IV ; Cumulative dose for multiple exams. RADIATION DOSE: 9.16 CTDIvol (mGy) ; Combined studies - Thorax/Abdomen/Pelvis MEDICAL HISTORY : Cardiovascular disease. Chronic obstructive pulmonary disease. Stroke.ETOH daily SURGICAL HISTORY : None. ENCOUNTER: Initial ACUITY: 1 day PAIN SCALE: 0/10 LOCATION: Bilateral chest TECHNIQUE: Volumetric scanning of the chest was performed. Using automated exposure control and adjustment of t he mA and/or kV according to patient size, radiation dose was kept as low as reasonably achievable to obtain optimal diagnostic quality images. DICOM format image data is available electronically for review and comparison. FINDINGS: There are small bilateral pleural effusions. There is a 4 mm subpleural nodule right middle lobe whic h is probably benign. There is a regular mostly linear parenchymal scarring in the upper lobes bilate rally. There is some dependent atelectasis at the lung bases but no definite evidence for metastatic disease to the lungs. There is mild to moderate emphysema. There is a mildly enlarged AP window lymph node on the left measured 1.2 cm. No other mediastinal honey nopathy. Moderate coronary calcifications. The pericardial effusion. See abdomen CT for findings below the diaphragm. CONCLUSION: 1. No definite evidence of metastatic disease to lung parenchyma. 3-4 mm subpleural nodule right midd le lobe, likely benign. Emphysema. Bilateral upper lobe parenchymal scarring. 2. Mildly enlarged AP window left on the left. Followup chest CT recommended in 3-6 months. PET/CT would also be helpful in assessing for metabolic activity. Tutu Givens MD on April 25, 2017 at 13:36 Board Certified Radiologist. This report was verified electronically.
[2017-04-25] MEDS: POTASSIUM CHLOR 20 MEQ PREMIX 100 ML IV SCH ×2 (14:35→16:35)
[2017-04-25] MEDS: NS + KCL 20 MEQ INJ 1,000 ML IV SCH (14:40)
[2017-04-25 16:00] VITALS: BP 119/68; PULSE 80; RESP 19; TEMP 99.5; O2SAT 98
--- NOTE | 2017-04-25 16:24 | MB ---
cc: JEFERSON PAPPAS MD DATE OF CONSULTATION: 04/25/2017. REASON FOR CONSULTATION: Hepatic flexure mass. HISTORY OF PRESENT ILLNESS: The patient is a 66-year-old male with a history of stroke on Coumadin who presented with a GI bleed.. Coumadin was noted to be supratherapeutic at the time at 11.2. Hemoglobin noted to be 5.1 and 16.8. The patient underwent aggressive resuscitation, admission to the ICU with treatment by gastroenterology including EGD with a possible AVM which was cauterized and the patient underwent colonoscopy with repeat procedure showing concern for hepatic flexure mass. This was biopsied. General surgery was consulted for further treatment and evaluation. On my exam, the patient is resting somewhat comfortably. The patient is an extremely poor historian and unable to give adequate history given his expressive aphasia and most of the history was obtained through the chart and from notes. Evidently the patient has a long history of chronic EtOH abuse and has been in the hospital several times. The patient does have a Petersen Act at one point. He was noted to be having some abdominal pain and GI bleed. Again, circumstances and details are unobtainable to me at this time given his expressive aphasia and difficulty with phonation. He states that the pain has been going on for a couple of days and he has had some bleeding as well. He denies any vomiting blood but has had some vomiting as well. The patient has positive smoking history. There is no record of any colonoscopy in the past. The patient again has been resuscitated since his initial onset of GI bleed with 2 units of packed red blood cells, Kcentra, fresh frozen plasma and vitamin K. INR has normalized to 1.3 and hemoglobin has also improved to 8.6 and 25.9. PAST MEDICAL HISTORY: 1. Hyperlipidemia. 2. Esophagitis. 3. Duodenal AVM. 4. Hiatal hernia. 5. CVA. 6. COPD. 7. Anemia. PAST SURGICAL HISTORY: 1. EGD. 2. Hernia repair as an infant. 3. Open reduction internal fixation right. ALLERGIES: NO KNOWN DRUG ALLERGIES. MEDICATIONS: See the electronic medical record, Coumadin. FAMILY HISTORY: The patient is unsure of his family history as he was a foster child. SOCIAL HISTORY: Positive smoking. EtOH. Denies IV drug abuse. REVIEW OF SYSTEMS: Difficult to obtain; however, complains of fatigue and weight loss. RESPIRATORY: Denies cough or wheeze. CARDIOVASCULAR: Denies chest pain. Complained of palpitations. GASTROINTESTINAL: Complained of vomiting, nausea, abdominal pain, bloody stools. MUSCULOSKELETAL: Complained of arthralgias. Denies myalgias. NEUROLOGIC: Weakness globally. Denies headaches. PSYCHIATRIC: Confusion. Stroke. PHYSICAL EXAMINATION: GENERAL: Patient in no acute distress. VITAL SIGNS: Temperature 98.2, pulse 68, respirations 16, blood pressure 128/79, saturation 99%. HEAD, EYES, EARS, NOSE, THROAT: Pupils equal, round and reactive to light and accommodation. No scleral icterus. NECK: The neck is supple. Trachea is midline. LUNGS: Bilateral expansion. Clear. HEART: Regular rhythm. S1 and S2. ABDOMEN: Abdomen scaphoid. Positive tenderness to palpation. No rebound. No guarding. No peritoneal signs. EXTREMITIES: Cachectic. Well-perfused. INTEGUMENT: No obvious masses or lesions. PSYCHIATRIC: Expressive aphasia. LABORATORY AND DIAGNOSTIC DATA: WBC 9.8, hemoglobin 8.6, hematocrit 25.9, platelets 341,000. Sodium 142, potassium 3.1, chloride 107, BUN 2, creatinine 0.4, albumin 2.2. INR 1.3. PT is 14.4. CT head shows no acute findings. ASSESSMENT: The patient is a 66-year-old male presenting with GI bleed, history of stroke on Coumadin, history of EtOH abuse. PLAN: After full clinical, radiologic and laboratory workup, the patient with above-named issues including GI bleeding currently appears to be controlled, the patient with stable hemoglobin and coagulopathy corrected status post a colonoscopy with finding of colonic mass. At this point, agree with CT scan abdomen and pelvis and will add CT scan chest and will follow up on these images along with a CEA and CA 19-9 level. Will continue to monitor the patient closely. We will await biopsy of the mass to determine the etiology and if it is truly a cancer and again CT chest, abdomen and pelvis to rule out metastatic disease. MD DEEJAY Patel/KEITH /1:51 PM /4:11 PM
[2017-04-25 20:00] VITALS: BP 119/70; PULSE 83; RESP 17; TEMP 100.1; O2SAT 96
[2017-04-26] VITALS: BP 119/70; PULSE 85; RESP 17; TEMP 100.1; O2SAT 96
[2017-04-26] MEDS: CHLORHEXIDINE GLUCONATE 2 % 1 PACK (2 CLOTHS) TOP SCH (02:47)
[2017-04-26] MEDS: NS + KCL 20 MEQ INJ 1,000 ML IV SCH ×2 (06:00→18:41)
[2017-04-26 06:05] LABS: AUTOMATED NEUTROPHIL # 4.5 TH/MM3 (1.8-7.7); BASOPHIL % 0.6 % (0.0-2.0); EOSINOPHIL # 0.2 TH/MM3 (0-0.4); EOSINOPHIL % 3.2 % (0.0-4.0); HEMATOCRIT 25.8 % (39.0-51.0); HEMO FLAGS DIFF FINAL; LYMPH % 14.2 % (9.0-44.0); LYMPHOCYTE # 0.9 TH/MM3 (1.0-4.8); MEAN CORPUSCULAR HEMOGLOBIN 25.5 PG (27.0-34.0); MEAN CORPUSCULAR HGB CONC 32.2 % (32.0-36.0); MONO % 11.1 % (0.0-8.0); NEUT % 70.9 % (16.0-70.0); PLATELET COUNT 305 TH/MM3 (150-450); RED BLOOD COUNT 3.27 MIL/MM3 (4.50-5.90); RED CELL DISTRIBUTION WIDTH 17.7 % (11.6-17.2); WHITE BLOOD COUNT 6.4 TH/MM3 (4.0-11.0)
[2017-04-26 06:24] LABS: POTASSIUM 3.5 MEQ/L (3.5-5.1)
[2017-04-26 06:25] LABS: BICARBONATE 23.7 MEQ/L (21.0-32.0)
[2017-04-26 08:00] VITALS: BP 104/67; PULSE 90; RESP 17; TEMP 99.6; O2SAT 95
[2017-04-26] MEDS: SODIUM CHLORIDE 0.9% FLUSH 10 ML FLUSH IV FLUSH SCH ×2 (09:00→20:31)
[2017-04-26] MEDS: DOCUSATE SODIUM 50 MG/SENNA 8.6 MG TAB PO SCH ×2 (09:00→20:31)
--- NOTE | 2017-04-26 09:42 | HHI.PR ---
Subjective Remarks Patient with significant aphasia. Can answer yes or no but is inconsistent or does not always answer appropriately. Objective Vitals Vital Signs Date Time Temp Pulse Resp B/P Pulse Ox O2 Delivery O2 Flow Rate FiO2 04/26/17 08:00 99.6 90 17 104/67 95 04/26/17 00:00 100.1 85 17 119/70 96 04/25/17 20:00 100.1 83 17 119/70 96 04/25/17 16:00 99.5 80 19 119/68 98 04/25/17 11:50 98.0 69 20 131/67 98 I/O 04/25/17 04/25/17 04/25/17 04/26/17 04/26/17 04/26/17 07:00 15:00 23:00 07:00 15:00 23:00 Intake Total 738 ml 968 ml 904 ml 745 ml Output Total 1100 ml 900 ml 600 ml 1650 ml Balance -362 ml 68 ml 304 ml -905 ml Intake Oral 0 ml 760 ml 240 ml 240 ml IV Total 738 ml 208 ml 664 ml 505 ml Output Urine Total 1100 ml 900 ml 600 ml 1650 ml # Bowel Movements 0 1 Result Diagram: 04/26/17 0533 04/26/17 0533 Imaging Last Impressions Chest CT 04/25/17 0000 Signed Impressions: Service Date/Time: Tuesday, April 25, 2017 13:19 - CONCLUSION: 1. No definite evidence of metastatic disease to lung parenchyma. 3-4 mm subpleural nodule right middle lobe, likely benign. Emphysema. Bilateral upper lobe parenchymal scarring. 2. Mildly enlarged AP window left on the left. Followup chest CT recommended in 3-6 months. PET/CT would also be helpful in assessing for metabolic activity. Tutu Givens MD Abdomen/Pelvis CT 04/25/17 0000 Signed Impressions: Service Date/Time: Tuesday, April 25, 2017 13:19 - CONCLUSION: 1. No evidence for metastatic disease to the abdomen and pelvis. 2. Focal mural thickening and near the hepatic flexure with history of colonic mass. 3. Colonic diverticulosis without diverticulitis. Prostatic enlargement. Previous screw fixation right femur. Tutu Givens MD Head CT 04/22/17 0751 Signed Impressions: Service Date/Time: March 04:42 - CONCLUSION: No acute findings. 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 Dagoberto English MD Objective Remarks GENERAL: Patient appearing older than stated age, expressive aphasia. CARDIOVASCULAR: Normal rate and regular rhythm without murmurs, gallops, or rubs. RESPIRATORY: Good respiratory efforts. Breath sounds equal and clear to auscultation bilaterally. GASTROINTESTINAL: Abdomen soft, non-tender, non-distended. Normal active bowel sounds MUSCULOSKELETAL: Extremities without cyanosis, or edema. NEURO: Expressive aphasia, right sided paralysis. PSYCH: Appropriate mood and affect. Procedures 04/22/17 EGD 04/23/13 colonoscopy A/P Problem List: (1) Upper GI bleed ICD Code: K92.2 Status: Acute (2) Elevated INR ICD Code: R79.1 Status: Resolved (3) Anemia ICD Code: D64.9 Status: Acute (4) History of CVA with residual deficit ICD Code: I69.30 Status: Chronic Assessment and Plan 66-year-old male with: GI bleed, anemia secondary to blood loss: Continue IV Protonix. Appreciate GI recommendations. Status post EGD with cautery of AVM. S/P colonoscopy, which revealed a colon mass. General surgery following. Biopsy pending. Further plans based on pathology report. Coagulopathy: Coumadin on hold. Patient received in K, FFP. INR decreased. Dyslipidemia: Home medications on hold until okay with GI. History of CVA: Unable to use anticoagulation secondary to GI bleed. Patient has residual right-sided weakness and aphasia. Patient resides at a senior care facility. DVT prophylaxis: CHANTALE Bass. Avoid chemical prophylaxis secondary to bleeding. Demi Cruz MD Apr 26, 2017 09:42
[2017-04-26] MEDS: PANTOPRAZOLE SODIUM 40 MG VIAL IV SCH ×2 (10:05→20:30)
--- NOTE | 2017-04-26 11:01 | HHI.PR ---
Subjective Subjective Notes no acute issues, pain appears controlled, no bm Objective Vitals/I&O Vital Signs Date Time Temp Pulse Resp B/P Pulse Ox O2 Delivery O2 Flow Rate FiO2 04/26/17 08:00 99.6 90 17 104/67 95 04/25/17 09:15 Room Air 04/23/17 07:47 21 Labs Laboratory Tests Test 04/25/17 04/26/17 12:11 05:33 White Blood Count 9.8 6.4 Red Blood Count 3.31 3.27 Hemoglobin 8.6 8.3 Hematocrit 25.9 25.8 Mean Corpuscular Volume 78.1 79.0 Mean Corpuscular Hemoglobin 26.0 25.5 Mean Corpuscular Hemoglobin 33.3 32.2 Concent Red Cell Distribution Width 18.5 17.7 Platelet Count 341 305 Mean Platelet Volume 6.8 6.3 Neutrophils (%) (Auto) 77.2 70.9 Lymphocytes (%) (Auto) 10.9 14.2 Monocytes (%) (Auto) 7.2 11.1 Eosinophils (%) (Auto) 4.2 3.2 Basophils (%) (Auto) 0.5 0.6 Neutrophils # (Auto) 7.6 4.5 Lymphocytes # (Auto) 1.1 0.9 Monocytes # (Auto) 0.7 0.7 Eosinophils # (Auto) 0.4 0.2 Basophils # (Auto) 0.1 0.0 CBC Comment DIFF FINAL DIFF FINAL Differential Comment Sodium Level 142 137 Potassium Level 3.1 3.5 Chloride Level 107 104 Carbon Dioxide Level 26.6 23.7 Anion Gap 8 9 Blood Urea Nitrogen 2 4 Creatinine 0.41 0.48 Estimat Glomerular Filtration 210 175 Rate Random Glucose 79 98 Calcium Level 7.9 8.2 Carcinoembryonic Antigen 2.8 Cardiovascular: Regular Lungs: Clear Abdomen: Other (soft mild guarding, no rebound) A/P Assessment and Plan GI bleed hepatic flexure mass, HH stable, ct reviewed PLAN encourage nutrition, check prealbumin monitor hh Await bx results Michel Mercedes MD Apr 26, 2017 11:01
[2017-04-26 12:00] VITALS: BP 100/55; PULSE 75; RESP 17; TEMP 99.1; O2SAT 96
[2017-04-26 16:00] VITALS: BP 114/62; PULSE 76; RESP 17; TEMP 98.9; O2SAT 96
--- NOTE | 2017-04-26 16:37 | HHI.GIFU ---
Subjective Remarks Resting on side of bed with PT. No n/v. Right sided abdominal pain, but also c /o entire right side hurting- RUE, right side of abdomen. No bleeding. Objective Vitals I&O Vital Signs Date Time Temp Pulse Resp B/P Pulse Ox O2 Delivery O2 Flow Rate FiO2 04/26/17 12:00 99.1 75 17 100/55 96 04/26/17 08:00 99.6 90 17 104/67 95 04/26/17 00:00 100.1 85 17 119/70 96 04/25/17 20:00 100.1 83 17 119/70 96 I/O 04/25/17 04/25/17 04/25/17 04/26/17 04/26/17 04/26/17 07:00 15:00 23:00 07:00 15:00 23:00 Intake Total 738 ml 968 ml 904 ml 745 ml 718 ml Output Total 1100 ml 900 ml 600 ml 1650 ml 1550 ml Balance -362 ml 68 ml 304 ml -905 ml -832 ml Intake Oral 0 ml 760 ml 240 ml 240 ml 240 ml IV Total 738 ml 208 ml 664 ml 505 ml 478 ml Output Urine Total 1100 ml 900 ml 600 ml 1650 ml 1550 ml # Bowel Movements 0 1 0 Laboratory Laboratory Tests Test 04/26/17 05:33 White Blood Count 6.4 Red Blood Count 3.27 Hemoglobin 8.3 Hematocrit 25.8 Mean Corpuscular Volume 79.0 Mean Corpuscular Hemoglobin 25.5 Mean Corpuscular Hemoglobin 32.2 Concent Red Cell Distribution Width 17.7 Platelet Count 305 Mean Platelet Volume 6.3 Neutrophils (%) (Auto) 70.9 Lymphocytes (%) (Auto) 14.2 Monocytes (%) (Auto) 11.1 Eosinophils (%) (Auto) 3.2 Basophils (%) (Auto) 0.6 Neutrophils # (Auto) 4.5 Lymphocytes # (Auto) 0.9 Monocytes # (Auto) 0.7 Eosinophils # (Auto) 0.2 Basophils # (Auto) 0.0 CBC Comment DIFF FINAL Differential Comment Sodium Level 137 Potassium Level 3.5 Chloride Level 104 Carbon Dioxide Level 23.7 Anion Gap 9 Blood Urea Nitrogen 4 Creatinine 0.48 Estimat Glomerular Filtration 175 Rate Random Glucose 98 Calcium Level 8.2 Prealbumin 12 Imaging Last Impressions Chest CT 04/25/17 0000 Signed Impressions: Service Date/Time: Tuesday, April 25, 2017 13:19 - CONCLUSION: 1. No definite evidence of metastatic disease to lung parenchyma. 3-4 mm subpleural nodule right middle lobe, likely benign. Emphysema. Bilateral upper lobe parenchymal scarring. 2. Mildly enlarged AP window left on the left. Followup chest CT recommended in 3-6 months. PET/CT would also be helpful in assessing for metabolic activity. Tutu Givens MD Abdomen/Pelvis CT 04/25/17 0000 Signed Impressions: Service Date/Time: Tuesday, April 25, 2017 13:19 - CONCLUSION: 1. No evidence for metastatic disease to the abdomen and pelvis. 2. Focal mural thickening and near the hepatic flexure with history of colonic mass. 3. Colonic diverticulosis without diverticulitis. Prostatic enlargement. Previous screw fixation right femur. Tutu Givens MD Head CT 04/22/17 0751 Signed Impressions: Service Date/Time: March 04:42 - CONCLUSION: No acute findings. 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 Dagoberto English MD Physical Exam HEENT: Normocephalic, atraumatic. CHEST: CTA CARDIAC: RRR ABDOMEN: Soft, nondistended, nontender; no hepatosplenomegaly; bowel sounds are present in all four quadrants. EXTREMITIES: Right sided weakness SKIN: Normal; no rash; no jaundice. 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 (+) Coumadin use, (+) Ibuprofen use. On admission, H&H of 5.1/16.8 and an INR of 11.2. S/P 3 units PRBC, 2 units FFP, K Sentra, and vitamin K. S/P EGD with ablation of AVM (04/22/17)----> Normal stomach with some residual food present, a single possible AVM was ablated using bipolar cautery, duodenum, some residual food. Incomplete colonoscopy (04/23/17)---> inadequately prepped colon. - Hepatic flexure Mass. Colonoscopy (04/25/17)-----> 1. Mass hepatic flexure-- biopsies diverticulosis sigmoid,descending polyp pedunculated descending colon-1 cm-hot snare polypectomy with complete removal, 2 clips applied at the base to prevent bleeding polyp sessile sigmoid colon-6 mm-hot snare polypectomy with complete removal 2. Retroflexed views revealed internal hemorrhoids 3. Retroflexed views revealed small internal hemorrhoids 4. Revealed external hemorrhoids. Pathology pending. Abdomen/Pelvis CT (04/25/17)----> 1. No evidence for metastatic disease to the abdomen and pelvis. 2. Focal mural thickening and near the hepatic flexure with history of colonic mass. 3. Colonic diverticulosis without diverticulitis. Prostatic enlargement. Previous screw fixation right femur. CEA 2.8. Ca19-9 pending. GS following, awaiting pathology. - Severe anemia secondary to blood loss. H&H 5.1/16.8 on admission. S/P 3 units PRBC, repeat HH 8.3/25.8. - Severe coagulopathy, coumadin toxicity. Coumadin at home for hx cva- now on hold, 2 units FFP, K Sentra, and vitamin K. INR INR is 1.3. - Leukocytosis, improved. ? reactive. WBC 6.4. - Hx CVA, Hyperlipidemia, COPD per attending. PLAN: - FRANCINE, Heart healthy - Await pathology - Await Ca19-9 - Protonix with BID dosing - Monitor HH - Transfuse as necessary - GS following for hepatic flexure mass, pathology pending. - Supportive care - Pt seen and examined by Dr. Mckinley and myself and this note is written on his behalf Nasreen Au Apr 26, 2017 16:37
[2017-04-26 20:00] VITALS: BP 103/57; PULSE 82; RESP 17; TEMP 99.4; O2SAT 95
[2017-04-27] VITALS: BP 103/56; PULSE 80; RESP 17; TEMP 98.7; O2SAT 94
[2017-04-27] MEDS: CHLORHEXIDINE GLUCONATE 2 % 1 PACK (2 CLOTHS) TOP SCH (04:00)
[2017-04-27 08:00] VITALS: BP 111/65; PULSE 80; RESP 17; TEMP 98.2; O2SAT 96
[2017-04-27] MEDS: SODIUM CHLORIDE 0.9% FLUSH 10 ML FLUSH IV FLUSH SCH ×2 (08:14→20:17)
[2017-04-27] MEDS: DOCUSATE SODIUM 50 MG/SENNA 8.6 MG TAB PO SCH ×2 (08:14→20:17)
[2017-04-27] MEDS: PANTOPRAZOLE SODIUM 40 MG VIAL IV SCH ×2 (08:18→20:18)
[2017-04-27] MEDS: NS + KCL 20 MEQ INJ 1,000 ML IV SCH (08:18)
--- NOTE | 2017-04-27 09:03 | HHI.PR ---
Subjective Remarks Patient is eating most of his meals. Denies pain. No bowel movements today. No reports of GI bleeding. Objective Vitals Vital Signs Date Time Temp Pulse Resp B/P Pulse Ox O2 Delivery O2 Flow Rate FiO2 04/27/17 08:00 98.2 80 17 111/65 96 04/27/17 00:00 98.7 80 17 103/56 94 04/26/17 20:00 99.4 82 17 103/57 95 04/26/17 16:00 98.9 76 17 114/62 96 04/26/17 12:00 99.1 75 17 100/55 96 I/O 04/26/17 04/26/17 04/26/17 04/27/17 04/27/17 04/27/17 07:00 15:00 23:00 07:00 15:00 23:00 Intake Total 745 ml 718 ml 648 ml 853 ml Output Total 1650 ml 1550 ml 1650 ml 1300 ml Balance -905 ml -832 ml -1002 ml -447 ml Intake Oral 240 ml 240 ml 240 ml 240 ml IV Total 505 ml 478 ml 408 ml 613 ml Output Urine Total 1650 ml 1550 ml 1650 ml 1300 ml # Bowel Movements 0 Result Diagram: 04/26/17 0533 04/26/17 0533 Objective Remarks GENERAL: Patient appearing older than stated age, expressive aphasia. CARDIOVASCULAR: Normal rate and regular rhythm without murmurs, gallops, or rubs. RESPIRATORY: Good respiratory efforts. Breath sounds equal and clear to auscultation bilaterally. GASTROINTESTINAL: Abdomen soft, non-tender, non-distended. Normal active bowel sounds MUSCULOSKELETAL: Extremities without cyanosis, or edema. NEURO: Expressive aphasia, right sided paralysis. PSYCH: Appropriate mood and affect. Procedures 04/22/17 EGD 04/23/13 colonoscopy A/P Problem List: (1) Upper GI bleed ICD Code: K92.2 Status: Acute (2) Elevated INR ICD Code: R79.1 Status: Resolved (3) Anemia ICD Code: D64.9 Status: Acute (4) History of CVA with residual deficit ICD Code: I69.30 Status: Chronic Assessment and Plan 66-year-old male with: GI bleed, anemia secondary to blood loss: Continue IV Protonix. Appreciate GI recommendations. Status post EGD with cautery of AVM. S/P colonoscopy, which revealed a colon mass. General surgery following. Status post biopsy. Further plans based on pathology report. Coagulopathy: Coumadin on hold. Patient received in K, FFP. INR decreased. Dyslipidemia: Home medications on hold until okay with GI. History of CVA: Unable to use anticoagulation secondary to GI bleed. Patient has residual right-sided weakness and aphasia. [facility]. DVT prophylaxis: CHANTALE Bass. Avoid chemical prophylaxis secondary to bleeding. Demi Cruz MD Apr 27, 2017 09:03
--- NOTE | 2017-04-27 09:28 | HHI.PR ---
Subjective Subjective Notes Denies further GI bleeding. Tolerating a diet. Objective Vitals/I&O Vital Signs Date Time Temp Pulse Resp B/P Pulse Ox O2 Delivery O2 Flow Rate FiO2 04/27/17 08:00 98.2 80 17 111/65 96 04/25/17 09:15 Room Air 04/23/17 07:47 21 Labs Laboratory Tests Test 04/26/17 14:39 CA 19-9 Antigen 2.8 Abdomen: Non-distended, Non-tender, Other (flat soft, no discomfort to palpation.) A/P Assessment and Plan GI bleed, on coumadin after stroke. Hepatic flexure mass. Colonoscopy, biopsy pending. Prealbumin 12. Dr Mercedes to follow up. Maxi Sanchez MD Apr 27, 2017 09:28
[2017-04-27 12:00] VITALS: BP 96/59; PULSE 86; RESP 17; TEMP 98.3; O2SAT 94
[2017-04-27 16:00] VITALS: BP 91/55; PULSE 71; RESP 17; TEMP 98; O2SAT 90
--- NOTE | 2017-04-27 16:44 | HHI.GIFU ---
Subjective Remarks Resting in bed. Has some mild right sided abdominal pain. No n/v. Tolerating diet. No bm today. Objective Vitals I&O Vital Signs Date Time Temp Pulse Resp B/P Pulse Ox O2 Delivery O2 Flow Rate FiO2 04/27/17 16:00 98.0 71 17 91/55 90 04/27/17 12:00 98.3 86 17 96/59 94 04/27/17 08:00 98.2 80 17 111/65 96 04/27/17 00:00 98.7 80 17 103/56 94 04/26/17 20:00 99.4 82 17 103/57 95 I/O 04/26/17 04/26/17 04/26/17 04/27/17 04/27/17 04/27/17 07:00 15:00 23:00 07:00 15:00 23:00 Intake Total 745 ml 718 ml 648 ml 853 ml 730 ml Output Total 1650 ml 1550 ml 1650 ml 1300 ml 675 ml Balance -905 ml -832 ml -1002 ml -447 ml 55 ml Intake Oral 240 ml 240 ml 240 ml 240 ml 120 ml IV Total 505 ml 478 ml 408 ml 613 ml 610 ml Output Urine Total 1650 ml 1550 ml 1650 ml 1300 ml 675 ml # Bowel Movements 0 0 Imaging Last Impressions Chest CT 04/25/17 0000 Signed Impressions: Service Date/Time: Tuesday, April 25, 2017 13:19 - CONCLUSION: 1. No definite evidence of metastatic disease to lung parenchyma. 3-4 mm subpleural nodule right middle lobe, likely benign. Emphysema. Bilateral upper lobe parenchymal scarring. 2. Mildly enlarged AP window left on the left. Followup chest CT recommended in 3-6 months. PET/CT would also be helpful in assessing for metabolic activity. Tutu Givens MD Abdomen/Pelvis CT 04/25/17 0000 Signed Impressions: Service Date/Time: Tuesday, April 25, 2017 13:19 - CONCLUSION: 1. No evidence for metastatic disease to the abdomen and pelvis. 2. Focal mural thickening and near the hepatic flexure with history of colonic mass. 3. Colonic diverticulosis without diverticulitis. Prostatic enlargement. Previous screw fixation right femur. Tutu Givens MD Head CT 04/22/17 0751 Signed Impressions: Service Date/Time: March 04:42 - CONCLUSION: No acute findings. 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 Dagoberto English MD Physical Exam HEENT: Normocephalic, atraumatic. CHEST: CTA CARDIAC: RRR ABDOMEN: Soft, nondistended, nontender; no hepatosplenomegaly; bowel sounds are present in all four quadrants. EXTREMITIES: Right sided weakness SKIN: Normal; no rash; no jaundice. 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 (+) Coumadin use, (+) Ibuprofen use. On admission, H&H of 5.1/16.8 and an INR of 11.2. S/P 3 units PRBC, 2 units FFP, K Sentra, and vitamin K. S/P EGD with ablation of AVM (04/22/17)----> Normal stomach with some residual food present, a single possible AVM was ablated using bipolar cautery, duodenum, some residual food. Incomplete colonoscopy (04/23/17)---> inadequately prepped colon. No further active bleeding. HH stable at 8.3/ 25.8 yesterday. PPI. - Hepatic flexure Mass. Colonoscopy (04/25/17)-----> 1. Mass hepatic flexure-- biopsies diverticulosis sigmoid,descending polyp pedunculated descending colon-1 cm-hot snare polypectomy with complete removal, 2 clips applied at the base to prevent bleeding polyp sessile sigmoid colon-6 mm-hot snare polypectomy with complete removal 2. Retroflexed views revealed internal hemorrhoids 3. Retroflexed views revealed small internal hemorrhoids 4. Revealed external hemorrhoids. Pathology pending. Abdomen/Pelvis CT (04/25/17)----> 1. No evidence for metastatic disease to the abdomen and pelvis. 2. Focal mural thickening and near the hepatic flexure with history of colonic mass. 3. Colonic diverticulosis without diverticulitis. Prostatic enlargement. Previous screw fixation right femur. CEA 2.8. Ca19-9 2.8. GS following, awaiting pathology. - Severe anemia secondary to blood loss. H&H 5.1/16.8 on admission. S/P 3 units PRBC, HH 8.3/25.8 yesterday. - Severe coagulopathy, coumadin toxicity. Coumadin at home for hx cva- now on hold, 2 units FFP, K Sentra, and vitamin K. INR INR is 1.3. - Leukocytosis, improved. ? reactive. IMPROVED. - Hx CVA, Hyperlipidemia, COPD per attending. PLAN: - FRANCINE, Heart healthy - Await pathology - Protonix with BID dosing - Monitor HH - Transfuse as necessary - GS following for hepatic flexure mass, pathology pending. - Supportive care - Pt seen and examined by Dr. Mckinley and myself and this note is written on his behalf Nasreen Au Apr 27, 2017 16:44
[2017-04-27 20:00] VITALS: BP 97/52; PULSE 78; RESP 20; TEMP 98.5; O2SAT 94
[2017-04-28] VITALS: BP 97/55; PULSE 79; RESP 20; TEMP 97; O2SAT 95
[2017-04-28] MEDS: NS + KCL 20 MEQ INJ 1,000 ML IV SCH ×2 (01:08→14:30)
[2017-04-28] MEDS: CHLORHEXIDINE GLUCONATE 2 % 1 PACK (2 CLOTHS) TOP SCH ×2 (04:00→21:02)
[2017-04-28 04:16] LABS: HEMATOCRIT 27.1 % (39.0-51.0); MEAN CELL VOLUME 79.8 FL (80.0-100.0); MEAN CORPUSCULAR HEMOGLOBIN 25.2 PG (27.0-34.0); MEAN CORPUSCULAR HGB CONC 31.6 % (32.0-36.0); PLATELET COUNT 301 TH/MM3 (150-450); RED BLOOD COUNT 3.39 MIL/MM3 (4.50-5.90); RED CELL DISTRIBUTION WIDTH 18.5 % (11.6-17.2); REVIEW FLAG FINAL; WHITE BLOOD COUNT 9.2 TH/MM3 (4.0-11.0)
[2017-04-28 04:40] LABS: BICARBONATE 23.1 MEQ/L (21.0-32.0); POTASSIUM 3.9 MEQ/L (3.5-5.1)
[2017-04-28 08:00] VITALS: BP 99/59; PULSE 82; RESP 16; TEMP 97.2; O2SAT 95
[2017-04-28] MEDS: PANTOPRAZOLE SODIUM 40 MG VIAL IV SCH ×2 (08:55→21:01)
[2017-04-28] MEDS: DOCUSATE SODIUM 50 MG/SENNA 8.6 MG TAB PO SCH ×2 (08:55→21:00)
[2017-04-28] MEDS: SODIUM CHLORIDE 0.9% FLUSH 10 ML FLUSH IV FLUSH SCH ×2 (08:55→21:01)
--- NOTE | 2017-04-28 09:42 | HHI.GIFU ---
Subjective Remarks Resting in bed. No complaints. Denies abdominal pain today, but does have some RLQ tenderness (mild) on exam. Tolerating diet. No bleeding. Objective Vitals I&O Vital Signs Date Time Temp Pulse Resp B/P Pulse Ox O2 Delivery O2 Flow Rate FiO2 04/28/17 08:00 97.2 82 16 99/59 95 04/28/17 00:00 97.0 79 20 97/55 95 04/27/17 20:00 98.5 78 20 97/52 94 04/27/17 16:00 98.0 71 17 91/55 90 04/27/17 12:00 98.3 86 17 96/59 94 I/O 04/27/17 04/27/17 04/27/17 04/28/17 04/28/17 04/28/17 06:59 14:59 22:59 06:59 14:59 22:59 Intake Total 853 ml 730 ml 542 ml 689 ml 120 ml Output Total 1300 ml 675 ml 1375 ml 1250 ml Balance -447 ml 55 ml -833 ml 689 ml -1130 ml Intake Oral 240 ml 120 ml 120 ml 120 ml IV Total 613 ml 610 ml 422 ml 689 ml Output Urine Total 1300 ml 675 ml 1375 ml 1250 ml Stool Total 0 ml # Bowel Movements 0 Laboratory Laboratory Tests Test 04/28/17 03:41 White Blood Count 9.2 Red Blood Count 3.39 Hemoglobin 8.6 Hematocrit 27.1 Mean Corpuscular Volume 79.8 Mean Corpuscular Hemoglobin 25.2 Mean Corpuscular Hemoglobin 31.6 Concent Red Cell Distribution Width 18.5 Platelet Count 301 Mean Platelet Volume 6.4 Sodium Level 138 Potassium Level 3.9 Chloride Level 107 Carbon Dioxide Level 23.1 Anion Gap 8 Blood Urea Nitrogen 10 Creatinine 0.38 Estimat Glomerular Filtration 230 Rate Random Glucose 97 Calcium Level 8.2 Imaging Last Impressions Chest CT 04/25/17 0000 Signed Impressions: Service Date/Time: Tuesday, April 25, 2017 13:19 - CONCLUSION: 1. No definite evidence of metastatic disease to lung parenchyma. 3-4 mm subpleural nodule right middle lobe, likely benign. Emphysema. Bilateral upper lobe parenchymal scarring. 2. Mildly enlarged AP window left on the left. Followup chest CT recommended in 3-6 months. PET/CT would also be helpful in assessing for metabolic activity. Tutu Givens MD Abdomen/Pelvis CT 04/25/17 0000 Signed Impressions: Service Date/Time: Tuesday, April 25, 2017 13:19 - CONCLUSION: 1. No evidence for metastatic disease to the abdomen and pelvis. 2. Focal mural thickening and near the hepatic flexure with history of colonic mass. 3. Colonic diverticulosis without diverticulitis. Prostatic enlargement. Previous screw fixation right femur. Tutu Givens MD Head CT 04/22/17 0751 Signed Impressions: Service Date/Time: March 04:42 - CONCLUSION: No acute findings. 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 Dagoberto English MD Physical Exam HEENT: Normocephalic, atraumatic. CHEST: CTA CARDIAC: RRR ABDOMEN: Soft, nondistended, nontender; no hepatosplenomegaly; bowel sounds are present in all four quadrants. EXTREMITIES: Right sided weakness SKIN: Normal; no rash; no jaundice. 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 (+) Coumadin use, (+) Ibuprofen use. On admission, H&H of 5.1/16.8 and an INR of 11.2. S/P 3 units PRBC, 2 units FFP, K Sentra, and vitamin K. S/P EGD with ablation of AVM (04/22/17)----> Normal stomach with some residual food present, a single possible AVM was ablated using bipolar cautery, duodenum, some residual food. Incomplete colonoscopy (04/23/17)---> inadequately prepped colon. No further active bleeding. HH stable at 8.6/ 27.1. PPI. No further active bleeding. - Hepatic flexure Mass. Colonoscopy (04/25/17)-----> 1. Mass hepatic flexure-- biopsies diverticulosis sigmoid,descending polyp pedunculated descending colon-1 cm-hot snare polypectomy with complete removal, 2 clips applied at the base to prevent bleeding polyp sessile sigmoid colon-6 mm-hot snare polypectomy with complete removal 2. Retroflexed views revealed internal hemorrhoids 3. Retroflexed views revealed small internal hemorrhoids 4. Revealed external hemorrhoids. Pathology pending. Abdomen/Pelvis CT (04/25/17)----> 1. No evidence for metastatic disease to the abdomen and pelvis. 2. Focal mural thickening and near the hepatic flexure with history of colonic mass. 3. Colonic diverticulosis without diverticulitis. Prostatic enlargement. Previous screw fixation right femur. CEA 2.8. Ca19-9 2.8. GS following, awaiting pathology- still pending. - Severe anemia secondary to blood loss. H&H 5.1/16.8 on admission. S/P 3 units PRBC, HH 8.6/27.1 - Severe coagulopathy, coumadin toxicity. Coumadin at home for hx cva- now on hold, 2 units FFP, K Sentra, and vitamin K. INR INR is 1.3. - Leukocytosis, improved. ? reactive. IMPROVED. - Hx CVA, Hyperlipidemia, COPD per attending. PLAN: - FRANCINE, Heart healthy - Await pathology - Protonix with BID dosing - Monitor HH - Transfuse as necessary - GS following for hepatic flexure mass, pathology pending. - Supportive care - Pt seen and examined by Dr. Mckinley and myself and this note is written on his behalf Nasreen Au Apr 28, 2017 09:42
--- NOTE | 2017-04-28 10:07 | HHI.PR ---
Subjective Remarks Patient had a normal bowel movement yesterday. He has no complaints. He is eating and drinking well. Objective Vitals Vital Signs Date Time Temp Pulse Resp B/P Pulse Ox O2 Delivery O2 Flow Rate FiO2 04/28/17 08:00 97.2 82 16 99/59 95 04/28/17 00:00 97.0 79 20 97/55 95 04/27/17 20:00 98.5 78 20 97/52 94 04/27/17 16:00 98.0 71 17 91/55 90 04/27/17 12:00 98.3 86 17 96/59 94 I/O 04/27/17 04/27/17 04/27/17 04/28/17 04/28/17 04/28/17 07:00 15:00 23:00 07:00 15:00 23:00 Intake Total 853 ml 730 ml 542 ml 689 ml 120 ml Output Total 1300 ml 675 ml 1375 ml 1250 ml Balance -447 ml 55 ml -833 ml 689 ml -1130 ml Intake Oral 240 ml 120 ml 120 ml 120 ml IV Total 613 ml 610 ml 422 ml 689 ml Output Urine Total 1300 ml 675 ml 1375 ml 1250 ml Stool Total 0 ml # Bowel Movements 0 Result Diagram: 04/28/17 0341 04/28/17 034 Objective Remarks GENERAL: Patient appearing older than stated age, expressive aphasia. CARDIOVASCULAR: Normal rate and regular rhythm without murmurs, gallops, or rubs. RESPIRATORY: Good respiratory efforts. Breath sounds equal and clear to auscultation bilaterally. GASTROINTESTINAL: Abdomen soft, non-tender, non-distended. Normal active bowel sounds MUSCULOSKELETAL: Extremities without cyanosis, or edema. NEURO: Expressive aphasia, right sided paralysis. PSYCH: Appropriate mood and affect. Procedures 04/22/17 EGD 04/23/13 colonoscopy A/P Problem List: (1) Upper GI bleed ICD Code: K92.2 Status: Acute (2) Elevated INR ICD Code: R79.1 Status: Resolved (3) Anemia ICD Code: D64.9 Status: Acute (4) History of CVA with residual deficit ICD Code: I69.30 Status: Chronic Assessment and Plan 66-year-old male with: GI bleed, anemia secondary to blood loss: Continue IV Protonix. Appreciate GI recommendations. Status post EGD with cautery of AVM. S/P colonoscopy, which revealed a colon mass. General surgery following. Status post biopsy. Further plans based on pathology report. Hopefully will have report in the next 1-2 days. Coagulopathy: Coumadin on hold. Patient received in K, FFP. INR decreased. Dyslipidemia: Home medications on hold until okay with GI. History of CVA: Unable to use anticoagulation secondary to GI bleed. Patient has residual right-sided weakness and aphasia. [facility] resides at a [facility] facility. Will discuss with GI when it will be acceptable to restart Coumadin. DVT prophylaxis: CHANTALE Bass. Avoid chemical prophylaxis secondary to bleeding. Demi Cruz MD Apr 28, 2017 10:07
[2017-04-28 12:00] VITALS: BP 96/54; PULSE 78; RESP 16; TEMP 98.2; O2SAT 96
[2017-04-28 16:00] VITALS: BP 96/55; PULSE 82; RESP 17; TEMP 98.2; O2SAT 96
[2017-04-28 20:00] VITALS: BP 101/55; PULSE 77; RESP 18; TEMP 97.6; O2SAT 96
--- NOTE | 2017-04-28 21:58 | HHI.PR ---
Subjective Subjective Notes no acute issues, tolerating diet, having non bloody bms Objective Vitals/I&O Vital Signs Date Time Temp Pulse Resp B/P Pulse Ox O2 Delivery O2 Flow Rate FiO2 04/28/17 20:00 97.6 77 18 101/55 96 04/25/17 09:15 Room Air Labs Laboratory Tests Test 04/28/17 03:41 White Blood Count 9.2 Red Blood Count 3.39 Hemoglobin 8.6 Hematocrit 27.1 Mean Corpuscular Volume 79.8 Mean Corpuscular Hemoglobin 25.2 Mean Corpuscular Hemoglobin 31.6 Concent Red Cell Distribution Width 18.5 Platelet Count 301 Mean Platelet Volume 6.4 Sodium Level 138 Potassium Level 3.9 Chloride Level 107 Carbon Dioxide Level 23.1 Anion Gap 8 Blood Urea Nitrogen 10 Creatinine 0.38 Estimat Glomerular Filtration 230 Rate Random Glucose 97 Calcium Level 8.2 Abdomen: Other (soft nt/nd) A/P Assessment and Plan GI bleed hepatic flexure mass, HH stable, ct reviewed PLAN encourage nutrition, check prealbumin monitor hh will need cardio optimization and medical clearance pending path results Await bx results Michel Mercedes MD Apr 28, 2017 21:58
[2017-04-29] VITALS: BP 108/64; PULSE 79; RESP 18; TEMP 97.6; O2SAT 97
[2017-04-29] MEDS: NS + KCL 20 MEQ INJ 1,000 ML IV SCH ×2 (04:48→20:44)
[2017-04-29 05:43] LABS: HEMATOCRIT 26.7 % (39.0-51.0); MEAN CELL VOLUME 79.2 FL (80.0-100.0); MEAN CORPUSCULAR HEMOGLOBIN 25.2 PG (27.0-34.0); MEAN CORPUSCULAR HGB CONC 31.9 % (32.0-36.0); PLATELET COUNT 346 TH/MM3 (150-450); RED BLOOD COUNT 3.37 MIL/MM3 (4.50-5.90); RED CELL DISTRIBUTION WIDTH 17.7 % (11.6-17.2); REVIEW FLAG FINAL; WHITE BLOOD COUNT 7.5 TH/MM3 (4.0-11.0)
[2017-04-29 05:45] LABS: PROTHROMBIN TIME - PATIENT 10.7 SEC (9.8-11.6)
[2017-04-29 08:00] VITALS: BP 106/56; PULSE 79; RESP 15; TEMP 98.1; O2SAT 95
[2017-04-29] MEDS: PANTOPRAZOLE SODIUM 40 MG VIAL IV SCH ×2 (09:06→20:46)
[2017-04-29] MEDS: DOCUSATE SODIUM 50 MG/SENNA 8.6 MG TAB PO SCH ×2 (09:06→20:46)
[2017-04-29] MEDS: SODIUM CHLORIDE 0.9% FLUSH 10 ML FLUSH IV FLUSH SCH ×2 (09:06→20:46)
--- NOTE | 2017-04-29 09:39 | HHI.PR ---
Subjective Remarks Patient has no new complaints. He can answer yes and no to questions. Path came back showing invasive well differentiated adenocarcinoma from the hepatic flexure biopsy. He reports he had a BM yesterday, normal. Objective Vitals Vital Signs Date Time Temp Pulse Resp B/P Pulse Ox O2 Delivery O2 Flow Rate FiO2 04/29/17 08:00 98.1 79 15 106/56 95 04/29/17 00:00 97.6 79 18 108/64 97 04/28/17 20:00 97.6 77 18 101/55 96 04/28/17 16:00 98.2 82 17 96/55 96 04/28/17 12:00 98.2 78 16 96/54 96 I/O 04/28/17 04/28/17 04/28/17 04/29/17 04/29/17 04/29/17 07:00 15:00 23:00 07:00 15:00 23:00 Intake Total 689 ml 480 ml 240 ml 620 ml Output Total 1700 ml 875 ml 875 ml Balance 689 ml -1220 ml -635 ml -255 ml Intake Oral 480 ml 240 ml 120 ml IV Total 689 ml 500 ml Output Urine Total 1700 ml 875 ml 875 ml # Bowel Movements 1 Result Diagram: 04/29/17 0336 04/28/17 0341 Imaging Last Impressions Chest CT 04/25/17 0000 Signed Impressions: Service Date/Time: Tuesday, April 25, 2017 13:19 - CONCLUSION: 1. No definite evidence of metastatic disease to lung parenchyma. 3-4 mm subpleural nodule right middle lobe, likely benign. Emphysema. Bilateral upper lobe parenchymal scarring. 2. Mildly enlarged AP window left on the left. Followup chest CT recommended in 3-6 months. PET/CT would also be helpful in assessing for metabolic activity. Tutu Givens MD Abdomen/Pelvis CT 04/25/17 0000 Signed Impressions: Service Date/Time: Tuesday, April 25, 2017 13:19 - CONCLUSION: 1. No evidence for metastatic disease to the abdomen and pelvis. 2. Focal mural thickening and near the hepatic flexure with history of colonic mass. 3. Colonic diverticulosis without diverticulitis. Prostatic enlargement. Previous screw fixation right femur. Tutu Givens MD Head CT 04/22/17 0751 Signed Impressions: Service Date/Time: March 04:42 - CONCLUSION: No acute findings. 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 Dagoberto English MD Objective Remarks GENERAL: Patient appearing older than stated age, expressive aphasia. CARDIOVASCULAR: Normal rate and regular rhythm without murmurs, gallops, or rubs. RESPIRATORY: Good respiratory efforts. Breath sounds equal and clear to auscultation bilaterally. GASTROINTESTINAL: Abdomen soft, non-tender, non-distended. Normal active bowel sounds MUSCULOSKELETAL: Extremities without cyanosis, or edema. NEURO: Expressive aphasia, right sided paralysis. PSYCH: Appropriate mood and affect. Procedures 04/22/17 EGD 04/23/13 colonoscopy A/P Problem List: (1) Upper GI bleed ICD Code: K92.2 Status: Acute (2) Elevated INR ICD Code: R79.1 Status: Resolved (3) Anemia ICD Code: D64.9 Status: Acute (4) History of CVA with residual deficit ICD Code: I69.30 Status: Chronic Assessment and Plan 66-year-old male with: GI bleed, anemia secondary to blood loss: Continue IV Protonix. Appreciate GI recommendations. Status post EGD with cautery of AVM. S/P colonoscopy, which revealed a colon mass. General surgery following. Status post biopsy. Pathology revealed well-differentiated adenocarcinoma of the colon. Colon cancer: Discussed with general surgery. Plan for resection early next week. Cardiology consulted for preoperative cardiac risk assessment Oncology consulted. History of CVA: Significant expressive aphasia and right sided paralysis. Unable to use anticoagulation secondary to GI bleed as above. Patient resides [facility]. Will need GI clearance post op regarding when it will be acceptable to restart Coumadin. Coagulopathy: Coumadin on hold. Patient received in K, FFP. INR down to 1. Dyslipidemia: Home medications on hold until okay with GI. DVT prophylaxis: SCDs, CHANTALE pat. Will start Heparin subq as there is no further evidence of bleeding Demi Cruz MD Apr 29, 2017 09:39
[2017-04-29] MEDS: HEPARIN SODIUM - SQ 10,000 UNITS/ML VIAL SQ SCH ×2 (11:35→20:47)
--- NOTE | 2017-04-29 11:37 | MB ---
cc: NIK MOTA M.D. DATE OF CONSULTATION 04/29/2017 REASON FOR CONSULTATION Cardiac clearance. HISTORY OF THE PRESENT ILLNESS The patient is a 66-year-old white male with a history of CVA, COPD, carotid disease, hyperlipidemia, who was admitted with GI bleeding. He has been found to have colon cancer and is to undergo resection in the near future. The patient denies any prior cardiac history. He also denies any recent chest pains, shortness of breath, dizziness, syncope, near-syncope, palpitations, pedal edema, paroxysmal nocturnal dyspnea. PAST MEDICAL HISTORY 1. Left middle cerebral artery CVA September 2009. 2. COPD. 3. Carotid disease with a known totally occluded left internal carotid artery. 4. Hyperlipidemia. 5. Esophagitis, small duodenal AVM, gastritis demonstrated by endoscopy on 09/28/2016. The AVM has since been cauterized. 6. Hemorrhoids. 7. Recently diagnosed colon cancer. PAST SURGICAL HISTORY Intramedullary nail placement for right hip fracture 09/09/2016. CURRENT CARDIAC MEDICATIONS Heparin 5000 units subcutaneously q.12 hours. ALLERGIES No known drug allergies. FAMILY HISTORY Noncontributory. SOCIAL HISTORY The patient is a former smoker. There is no history of alcohol abuse. REVIEW OF SYSTEMS As in the History of Present Illness, otherwise negative or noncontributory. He also currently denies headache, abdominal pain, fevers, wheezing. PHYSICAL EXAMINATION VITAL SIGNS: On physical examination his blood pressure is 106/56 with a pulse of 79, respirations 15. IN GENERAL: He is a well-developed, thin white male in no acute distress. HEENT/NECK EXAMINATION: Jugular venous pressure is normal. Carotid pulses are 2+ bilaterally and without bruits. LUNGS: Examination of the chest reveals clear lung piper on cardiac examination. CARDIOVASCULAR: He has a regular rhythm and rate without S3, S4 or murmur. ABDOMEN: On abdominal examination he has a soft, nontender abdomen. Bowel sounds are present. There is no definite hepatosplenomegaly. EXTREMITIES: Examination of extremities reveals no clubbing, cyanosis or edema. LABORATORY DATA WBC 7.5, hemoglobin 8.5, platelets 346. Potassium 3.9, BUN 10, creatinine 0.38. INR 1.0. IMPRESSION Overall stable cardiac status in this 66-year-old white male with a history of left-sided CVA in 2008, COPD, carotid disease, now admitted with GI bleeding with workup revealing colon cancer. I have been asked to see the patient for cardiac clearance. At this point I do not see any preoperative indices which would significantly increase his perioperative cardiovascular morbidity or mortality. RECOMMENDATIONS 1. Check an EKG; otherwise no additional cardiac workup at this time. He is cleared from my standpoint to undergo colon surgery. Nik Mota MD GHArgelia/SSB /10:34 AM /11:32 AM MTDJuancarols
[2017-04-29 12:00] VITALS: BP 104/61; PULSE 80; RESP 17; TEMP 97.8; O2SAT 96
--- NOTE | 2017-04-29 14:03 | HHI.PR ---
Subjective Subjective Notes Resting in bed Has good appetite and likes the protein shakes Objective Vitals/I&O Vital Signs Date Time Temp Pulse Resp B/P Pulse Ox O2 Delivery O2 Flow Rate FiO2 04/29/17 12:00 97.8 80 17 104/61 96 04/25/17 09:15 Room Air Labs Laboratory Tests Test 04/29/17 03:36 White Blood Count 7.5 Red Blood Count 3.37 Hemoglobin 8.5 Hematocrit 26.7 Mean Corpuscular Volume 79.2 Mean Corpuscular Hemoglobin 25.2 Mean Corpuscular Hemoglobin 31.9 Concent Red Cell Distribution Width 17.7 Platelet Count 346 Mean Platelet Volume 6.7 Prothrombin Time 10.7 Prothromb Time International 1.0 Ratio Cardiovascular: Regular Lungs: Clear Abdomen: Non-distended, Non-tender Extremities: No edema A/P Assessment and Plan 66 year old male with anemia; hepatic flexure mass -Pathology back--- colonic mucosal biopsies for the invasive well- differentiated adenocarcinoma -Plan for operative procedure early next week -Need medical and cardiac clearance -Consult medical oncology -Heart healthy diet plus Ensure shakes Attending Statement patient seen at bedside path consistent with cancer will need surgical resection Attestation The exam, history, and the medical decision-making described in the above note were completed with the assistance of the mid-level provider. I reviewed and agree with the findings presented. I attest that I had a [id number] encounter with the patient on the same day, and personally performed and documented my assessment and findings in the medical record. Ely Key Apr 29, 2017 14:03 Michel Mercedes MD May 08, 2017 23:18
--- NOTE | 2017-04-29 15:27 | HHI.GIFU ---
Subjective Remarks Resting in bed. No n/v. Denies abdominal pain, but does have some right sided tenderness. States he is eating okay. No bm today. No bleeding. Pathology came back as adenocarcinoma, oncology has been consulted and plan is for surgery early next week. Objective Vitals I&O Vital Signs Date Time Temp Pulse Resp B/P Pulse Ox O2 Delivery O2 Flow Rate FiO2 04/29/17 12:00 97.8 80 17 104/61 96 04/29/17 08:00 98.1 79 15 106/56 95 04/29/17 00:00 97.6 79 18 108/64 97 04/28/17 20:00 97.6 77 18 101/55 96 04/28/17 16:00 98.2 82 17 96/55 96 I/O 04/28/17 04/28/17 04/28/17 04/29/17 04/29/17 04/29/17 07:00 15:00 23:00 07:00 15:00 23:00 Intake Total 689 ml 480 ml 240 ml 620 ml 670 ml Output Total 1700 ml 875 ml 875 ml 450 ml Balance 689 ml -1220 ml -635 ml -255 ml 220 ml Intake Oral 480 ml 240 ml 120 ml 180 ml IV Total 689 ml 500 ml 490 ml Output Urine Total 1700 ml 875 ml 875 ml 450 ml # Bowel Movements 1 0 Laboratory Laboratory Tests Test 04/29/17 03:36 White Blood Count 7.5 Red Blood Count 3.37 Hemoglobin 8.5 Hematocrit 26.7 Mean Corpuscular Volume 79.2 Mean Corpuscular Hemoglobin 25.2 Mean Corpuscular Hemoglobin 31.9 Concent Red Cell Distribution Width 17.7 Platelet Count 346 Mean Platelet Volume 6.7 Prothrombin Time 10.7 Prothromb Time International 1.0 Ratio Imaging Last Impressions Chest CT 04/25/17 0000 Signed Impressions: Service Date/Time: Tuesday, April 25, 2017 13:19 - CONCLUSION: 1. No definite evidence of metastatic disease to lung parenchyma. 3-4 mm subpleural nodule right middle lobe, likely benign. Emphysema. Bilateral upper lobe parenchymal scarring. 2. Mildly enlarged AP window left on the left. Followup chest CT recommended in 3-6 months. PET/CT would also be helpful in assessing for metabolic activity. Tutu Givens MD Abdomen/Pelvis CT 04/25/17 0000 Signed Impressions: Service Date/Time: Tuesday, April 25, 2017 13:19 - CONCLUSION: 1. No evidence for metastatic disease to the abdomen and pelvis. 2. Focal mural thickening and near the hepatic flexure with history of colonic mass. 3. Colonic diverticulosis without diverticulitis. Prostatic enlargement. Previous screw fixation right femur. Tutu Givens MD Head CT 04/22/17 0751 Signed Impressions: Service Date/Time: March 04:42 - CONCLUSION: No acute findings. 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 Dagoberto English MD Physical Exam HEENT: Normocephalic, atraumatic. CHEST: CTA CARDIAC: RRR ABDOMEN: Soft, nondistended, mild right sided tenderness; no hepatosplenomegaly ; bowel sounds are present in all four quadrants. EXTREMITIES: Right sided weakness SKIN: Normal; no rash; no jaundice. PRESSURE TESTER: Alert/oriented. 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 (+) Coumadin use, (+) Ibuprofen use. On admission, H&H of 5.1/16.8 and an INR of 11.2. S/P 3 units PRBC, 2 units FFP, K Sentra, and vitamin K. S/P EGD with ablation of AVM (04/22/17)----> Normal stomach with some residual food present, a single possible AVM was ablated using bipolar cautery, duodenum, some residual food. Incomplete colonoscopy (04/23/17)---> inadequately prepped colon. No further active bleeding. HH stable at 8.5/ 26.7. PPI. No further active bleeding. - Hepatic flexure Mass. Colonoscopy (04/25/17)-----> 1. Mass hepatic flexure-- biopsies diverticulosis sigmoid,descending polyp pedunculated descending colon-1 cm-hot snare polypectomy with complete removal, 2 clips applied at the base to prevent bleeding polyp sessile sigmoid colon-6 mm-hot snare polypectomy with complete removal 2. Retroflexed views revealed internal hemorrhoids 3. Retroflexed views revealed small internal hemorrhoids 4. Revealed external hemorrhoids. Pathology pending. Abdomen/Pelvis CT (04/25/17)----> 1. No evidence for metastatic disease to the abdomen and pelvis. 2. Focal mural thickening and near the hepatic flexure with history of colonic mass. 3. Colonic diverticulosis without diverticulitis. Prostatic enlargement. Previous screw fixation right femur. Pathology with invasive well differentiated adenocarcinoma, clinically hepatic flexure, colonic adenomatous polyp, adenomatous polyp. CEA 2.8. Ca19-9 2.8. GS following, medical oncology consulted, plan is for surgery early next week. - Severe anemia secondary to blood loss. H&H 5.1/16.8 on admission. S/P 3 units PRBC, HH 8.5/26.7 - Severe coagulopathy, coumadin toxicity. Coumadin at home for hx cva- now on hold, 2 units FFP, K Sentra, and vitamin K. INR INR is 1.3. - Leukocytosis, improved. ? reactive. IMPROVED. - Hx CVA, Hyperlipidemia, COPD per attending. PLAN: - FRANCINE, Heart healthy - Protonix with BID dosing - Monitor HH - Transfuse as necessary - GS following for hepatic flexure mass (invasive well differentiated adenocarcinoma), plan for surgery early next week - Medical oncology consulted - GI will sign off, please reconsult as needed - Pt seen and examined by Dr. Mckinley and myself and this note is written on his behalf Nasreen Au Apr 29, 2017 15:27
[2017-04-29 16:00] VITALS: BP 94/52; PULSE 80; RESP 18; TEMP 98; O2SAT 95
--- NOTE | 2017-04-29 18:13 | EKG ---
Date Performed: 04/29/2017 Time Performed: 11:04:45 PTAGE: 66 years EKG: Sinus rhythm NORMAL ECG PREVIOUS TRACING : 10/05/2016 14.08 Compared to prior tracing no significant change DOCTOR: Jacey Arguello Interpretating Date/Time 04/29/2017 18:11:59
[2017-04-29 20:00] VITALS: BP 92/53; PULSE 82; RESP 18; TEMP 98.5; O2SAT 96
[2017-04-29] MEDS: CHLORHEXIDINE GLUCONATE 2 % 1 PACK (2 CLOTHS) TOP SCH (20:47)
[2017-04-30] VITALS: BP 97/53; PULSE 74; RESP 18; TEMP 97.5; O2SAT 96
[2017-04-30 05:40] LABS: HEMATOCRIT 24.9 % (39.0-51.0); MEAN CORPUSCULAR HEMOGLOBIN 25.3 PG (27.0-34.0); PLATELET COUNT 336 TH/MM3 (150-450); RED BLOOD COUNT 3.15 MIL/MM3 (4.50-5.90); RED CELL DISTRIBUTION WIDTH 18.1 % (11.6-17.2); REVIEW FLAG FINAL; WHITE BLOOD COUNT 7.8 TH/MM3 (4.0-11.0)
[2017-04-30 06:01] LABS: TRANSFERRIN IRON PROFILE 212 MG/DL (200-360)
--- NOTE | 2017-04-30 06:25 | MB ---
cc: DONTRELL HEATON MD DATE OF 1950. DATE OF CONSULTATION April 29, 2017 REASON FOR CONSULTATION Patient with a diagnosis of colon adenocarcinoma. CHIEF COMPLAINT Generalized weakness, severe anemia. HISTORY OF PRESENT ILLNESS This is a 66-year-old male who has a history of left-sided stroke and has right-sided deficits and significant aphasia. He is a poor historian. He presented to the emergency department with significant weakness. On admission he was found to have severe anemia. His hemoglobin was 5.1 and he had an elevated INR of 11.2. He has been on Coumadin. He was given 2 units of packed red blood cells. He received 2 units of FFP and vitamin K. He has been having black, tarry stools for the past four days. The patient was seen by Gastroenterology and he underwent an EGD and colonoscopy. EGD showed AVMs which were ablated. He had incomplete colonoscopy on 04/23/2017 due to inadequate prep. A repeat colonoscopy was completed on 05/15/2017. He was found to have a mass in the hepatic flexure. He also had diverticulosis in the sigmoid colon. There was a pedunculated polyp in the descending colon. He had hot snare polypectomy and complete removal of polyp. The patient underwent CT of the abdomen and pelvis which did not show any evidence of metastatic disease. There was focal mural thickening around the hepatic flexure. He was found to have an enlarged prostate. CEA was 2.8 and CA19-9 was 2.8. Final pathology results from the biopsy of the hepatic flexure mass confirmed adenocarcinoma. The patient has been seen by Surgery and there are plans for surgery early next week. The patient denies any abdominal pain. He appears comfortable. He denies any chest pain or shortness of breath. No abdominal pain. No lower extremity edema. He remains quite anemic with a hemoglobin of 8.5 and MCV of 79.2. REVIEW OF SYSTEMS A comprehensive 14-point review of systems was completed which is negative except as described in the HPI. PAST MEDICAL HISTORY 1. History of CVA with right-sided weakness. 2. History of duodenal AVMs. 3. Gastritis. 4. Hiatal hernia. 5. COPD. 6. Hyperlipidemia. PAST SURGICAL HISTORY 1. EGD and colonoscopy. 2. Hernia repair. 3. ORIF of the right intertrochanteric fracture with IM nailing. MEDICATIONS 1. Heparin subcu 5000 units q.12 hours. 2. Kaleigh-Colace 1 tablet p.o. b.i.d. 3. Protonix 40 mg IV q.12 hours. 4. Tylenol 650 p.o. q.4 hours p.r.n. 5. Morphine injection 2 mg IV q.2 hours p.r.n. 6. Ativan 2 mg IV q.4 hours p.r.n. 7. DuoNebs 1 amp q.2 hours p.r.n. 8. Milk of Magnesia 30 cc p.o. q.12 hours p.r.n. 9. Senokot 17.2 mg p.o. q.12 hours p.r.n. 10. Dulcolax 10 mg p.r.n. 11. Lactulose 30 cc p.o. p.r.n. ALLERGIES No known drug allergies. PHYSICAL EXAMINATION VITAL SIGNS: Blood pressure is 92/53, pulse is in the 80s, temperature is 98.5. O2 sats are 96% on room air. GENERAL: Acutely ill patient in no apparent distress. HEENT: Pupils are equal, round, react to light. EOMI. No oral thrush. No oral lesions. NECK: Supple. No JVD, no bruits, no lymphadenopathy. CHEST: Severe to auscultation bilaterally. CARDIAC: S1, S2. Regular rate and rhythm. ABDOMEN: Soft, nontender, nondistended. Bowel sounds are present. EXTREMITIES: Without any edema, erythema or cyanosis. SKIN: Without any petechiae, lesion or bruises. NEURO: He has chronic right-sided weakness, history of CVA. LABS WBC is 7.5, hemoglobin is 8.5, MCV is 79.2, platelet count is 346. Serum chemistries show sodium of 138, potassium 3.9, CO2 23.1, BUN is 8, creatinine is 0.38, GFR is 230, calcium is 8.2. CA19-9 is 2.8, CEA is 2.8. Coags show a PT of 10.7, INR is 1, fibrinogen is 382. IMAGING STUDIES imaging was reviewed in the EMR. ASSESSMENT AND PLAN This is a 66-year-old male who has a history of CVA with significant expressive aphasia and right-sided weakness who presented to the emergency department with GI bleeding, severe anemia and warfarin-induced coagulopathy. He has undergone EGD and colonoscopy. He was found to have a hepatic flexure mass which was biopsied; confirmed colon adenocarcinoma. 1. Colon adenocarcinoma involving the hepatic flexure. I have reviewed the CT scan and it does not show any other metastatic disease in the abdomen and pelvis. We need to obtain a CT of the chest to complete staging. This patient would require surgical resection of the colonic mass. Further recommendation will be made after his colectomy. If this is an early stage cancer, Stage I or II, he will likely need any adjuvant chemotherapy, but if this is a high-risk tumor based on the pathological features and if lymph nodes are involved, then he may need adjuvant treatment. 2. Severe microcytic anemia likely due to the malignancy and blood loss from the GI tract. I will obtain anemia studies. He may require iron infusion. 3. History of CVA with right-sided weakness and expressive aphasia. 4. Malnutrition with hypoalbuminemia. Albumin is 2.2. Dietary consult. Encourage oral intake. Ensure or Boost t.i.d. with meals. Thank you for allowing me to participate in the care of this patient. I will continue to follow this patient along. MD LUIS Rodriguez/NILSA /12:11 AM /6:10 AM
[2017-04-30 08:00] VITALS: BP 106/57; PULSE 76; RESP 16; TEMP 98.3; O2SAT 93
[2017-04-30] MEDS ORDERED: IOHEXOL 350 MG/ML 10 ML VIAL (for RAD DIAG) IV ONE (08:19)
[2017-04-30] MEDS: HEPARIN SODIUM - SQ 10,000 UNITS/ML VIAL SQ SCH ×2 (09:03→21:18)
[2017-04-30] MEDS: SODIUM CHLORIDE 0.9% FLUSH 10 ML FLUSH IV FLUSH SCH ×2 (09:04→21:00)
[2017-04-30] MEDS: PANTOPRAZOLE SODIUM 40 MG VIAL IV SCH ×2 (09:04→21:17)
[2017-04-30] MEDS: DOCUSATE SODIUM 50 MG/SENNA 8.6 MG TAB PO SCH ×2 (09:04→21:00)
[2017-04-30] MEDS: NS + KCL 20 MEQ INJ 1,000 ML IV SCH ×2 (09:04→23:13)
--- NOTE | 2017-04-30 09:23 | HHI.PR ---
Subjective Remarks Patient reports doing well. Eating. No BM today. No abdominal pain. Objective Vitals Vital Signs Date Time Temp Pulse Resp B/P Pulse Ox O2 Delivery O2 Flow Rate FiO2 04/30/17 08:00 98.3 76 16 106/57 93 04/30/17 00:00 97.5 74 18 97/53 96 04/29/17 20:00 98.5 82 18 92/53 96 04/29/17 16:00 98.0 80 18 94/52 95 04/29/17 12:00 97.8 80 17 104/61 96 I/O 04/29/17 04/29/17 04/29/17 04/30/17 04/30/17 04/30/17 07:00 15:00 23:00 07:00 15:00 23:00 Intake Total 620 ml 670 ml 1133 ml 1100 ml Output Total 875 ml 450 ml 875 ml 2700 ml Balance -255 ml 220 ml 258 ml -1600 ml Intake Oral 120 ml 180 ml 120 ml 480 ml IV Total 500 ml 490 ml 1013 ml 620 ml Output Urine Total 875 ml 450 ml 875 ml 2700 ml # Bowel Movements 0 Result Diagram: 04/30/17 0505 04/28/17 0341 Objective Remarks GENERAL: Patient appearing older than stated age, expressive aphasia. CARDIOVASCULAR: Normal rate and regular rhythm without murmurs, gallops, or rubs. RESPIRATORY: Good respiratory efforts. Breath sounds equal and clear to auscultation bilaterally. GASTROINTESTINAL: Abdomen soft, non-tender, non-distended. Normal active bowel sounds MUSCULOSKELETAL: Extremities without cyanosis, or edema. NEURO: Expressive aphasia, right sided paralysis. PSYCH: Appropriate mood and affect. Procedures 04/22/17 EGD 04/23/13 colonoscopy A/P Problem List: (1) Upper GI bleed ICD Code: K92.2 Status: Acute (2) Elevated INR ICD Code: R79.1 Status: Resolved (3) Anemia ICD Code: D64.9 Status: Acute (4) History of CVA with residual deficit ICD Code: I69.30 Status: Chronic Assessment and Plan 66-year-old male with: GI bleed, anemia secondary to blood loss: Continue IV Protonix. Appreciate GI recommendations. Status post EGD with cautery of AVM. S/P colonoscopy, which revealed a colon mass. General surgery following. Status post biopsy. Pathology revealed well-differentiated adenocarcinoma of the colon. Colon cancer: Discussed with general surgery. Plan for resection early next week. Cleared from Cardiac standpoint for surgery. Oncology following. History of CVA: Significant expressive aphasia and right sided paralysis. Unable to use anticoagulation secondary to GI bleed as above. Patient resides at a [facility] facility. Will need GI clearance post op regarding when it will be acceptable to restart Coumadin. Coagulopathy: Coumadin on hold. Patient received in K, FFP. INR down to 1. Dyslipidemia: Home medications on hold until okay with GI. DVT prophylaxis: CHANTALE Bass. Heparin subq as there is no further evidence of bleeding Demi Cruz MD Apr 30, 2017 09:23
--- NOTE | 2017-04-30 09:25 | RADRPT ---
EXAM DATE/TIME: 04/30/2017 08:14 [place] COMPARISON: CT THORAX W CONTRAST, April 25, 2017, 13:19. INDICATIONS : Colon adenocarcinoma; evaluate for metastases. IV CONTRAST: 67 cc Omnipaque 350 (iohexol) IV RADIATION DOSE: 3.76 CTDIvol (mGy) MEDICAL HISTORY : Stroke. Cardiovascular disease SURGICAL HISTORY : None. ENCOUNTER: Initial ACUITY: 1 day PAIN SCALE: 0/10 LOCATION: chest TECHNIQUE: Volumetric scanning of the chest was performed. Using automated exposure control and adjustment of t he mA and/or kV according to patient size, radiation dose was kept as low as reasonably achievable to obtain optimal diagnostic quality images. DICOM format image data is available electronically for review and comparison. FINDINGS: LUNGS: Moderate diffuse centrilobular emphysema with upper lobe predominance. Stable 4 mm subpleural nodule in the anterior right middle lobe. Stable 3 mm nodule in the extreme left lung base stable subpleural nodule in the left lower lobe superior segment abutting the major fissure measuring 5 mm. Redemonstr ation parenchymal scarring in the apices and anterior left upper lobe. Minimal groundglass opacities at the lung bases likely reflect atelectasis. PLEURA: There is no pleural thickening or pleural effusion. MEDIASTINUM: Stable 1.3 cm the AP node. No significant additional mediastinal lymph nodes. Heart appears unremarka ble without significant pericardial effusion. Central pulmonary arteries are patent. AXILLAE: Bilateral subcentimeter axillary nodes are stable no abnormal lytic or blastic bone lesions. SKELETAL: There is a stable 3.9 x 1.8 cm probable lipoma in the left pectoralis region. No abnormal lytic or bl astic bony lesions. MISCELLANEOUS: Visualized portions of the upper abdomen demonstrate scattered colonic diverticula. Otherwise, unrema rkable. CONCLUSION: 1. Redemonstration of moderate upper lobe predominant centrilobular emphysema with biapical and anter ior left upper lobe scarring. 2. Redemonstration of at least three sub-5 mm solid subpleural nodules. Followup examination is recom mended in 12 months (multiple solid nodules. <6mm, in high risk patient) per 2017 Fleischner guidelin es. These nodules are below the threshold for PET exam. 3. Redemonstration of nonspecific 1.3 cm left AP window lymph node. Jhon Flores MD on April 30, 2017 at 9:06 Board Certified Radiologist. This report was verified electronically.
[2017-04-30 12:00] VITALS: BP 97/57; PULSE 79; RESP 12; TEMP 97.3; O2SAT 96
[2017-04-30 14:00] VITALS: BP_SYST 89; BP_SYST 93; BP_DIAS 56; PULSE 78; RESP 20; TEMP 98.4; O2SAT 94
[2017-04-30 16:00] VITALS: BP_SYST 89; BP_SYST 93; BP_DIAS 56; PULSE 78; RESP 20; TEMP 98.4; O2SAT 94
--- NOTE | 2017-04-30 16:55 | HHI.PR ---
Subjective Subjective Notes Resting in bed No complaints Likes Ensure shakes Objective Vitals/I&O Vital Signs Date Time Temp Pulse Resp B/P Pulse Ox O2 Delivery O2 Flow Rate FiO2 04/30/17 12:00 97.3 79 12 97/57 96 Labs Laboratory Tests Test 04/30/17 05:05 White Blood Count 7.8 Red Blood Count 3.15 Hemoglobin 8.0 Hematocrit 24.9 Mean Corpuscular Volume 79.0 Mean Corpuscular Hemoglobin 25.3 Mean Corpuscular Hemoglobin 32.0 Concent Red Cell Distribution Width 18.1 Platelet Count 336 Mean Platelet Volume 6.4 Iron Level 14 Total Iron Binding Capacity 297 Percent Iron Saturation 4.7 Transferrin 212 Vitamin B12 Level 515 Cardiovascular: Regular Lungs: Clear Abdomen: Non-distended, Non-tender Extremities: No edema A/P Assessment and Plan 66 year old male with anemia; hepatic flexure mass -Pathology shows colonic mucosal biopsies for the invasive well-differentiated adenocarcinoma -Plan for operative procedure early next week -Cleared for surgery from Cardiology -Consult medical following -Heart healthy diet plus Ensure shakes Attending Statement patient seen at bedside no complaints continue nutrition optimization surgical planning Attestation The exam, history, and the medical decision-making described in the above note were completed with the assistance of the mid-level provider. I reviewed and agree with the findings presented. I attest that I had a [id number] encounter with the patient on the same day, and personally performed and documented my assessment and findings in the medical record. Ely Key Apr 30, 2017 16:55 Michel Mercedes MD May 08, 2017 23:24
[2017-04-30 20:00] VITALS: BP 100/55; PULSE 78; RESP 18; TEMP 97.6; O2SAT 95
[2017-04-30] MEDS: CHLORHEXIDINE GLUCONATE 2 % 1 PACK (2 CLOTHS) TOP SCH (23:13)
[2017-05-01] VITALS: BP 100/60; PULSE 72; RESP 18; TEMP 97.8; O2SAT 95
[2017-05-01 08:00] VITALS: BP 99/58; PULSE 86; RESP 20; TEMP 97.3; O2SAT 95
[2017-05-01] MEDS: SODIUM CHLORIDE 0.9% FLUSH 10 ML FLUSH IV FLUSH SCH ×2 (09:00→21:32)
[2017-05-01] MEDS: IRON SUCROSE INJ 200 MG in SODIUM CHLORIDE 0.9% INJ 100 ML IV SCH (09:27)
[2017-05-01] MEDS: PANTOPRAZOLE SODIUM 40 MG VIAL IV SCH (09:28)
[2017-05-01] MEDS: HEPARIN SODIUM - SQ 10,000 UNITS/ML VIAL SQ SCH ×2 (09:28→21:32)
[2017-05-01] MEDS: DOCUSATE SODIUM 50 MG/SENNA 8.6 MG TAB PO SCH ×2 (09:28→21:31)
--- NOTE | 2017-05-01 10:07 | HHI.PR ---
Subjective Remarks Patient has no complaints today. No pain. No nausea or vomiting. Objective Vitals Vital Signs Date Time Temp Pulse Resp B/P Pulse Ox O2 Delivery O2 Flow Rate FiO2 05/01/17 08:00 97.3 86 20 99/58 95 05/01/17 00:00 97.8 72 18 100/60 95 04/30/17 20:00 97.6 78 18 100/55 95 04/30/17 16:00 98.4 78 20 89/56 94 93/56 04/30/17 12:00 97.3 79 12 97/57 96 I/O 04/30/17 04/30/17 04/30/17 05/01/17 05/01/17 05/01/17 07:00 15:00 23:00 07:00 15:00 23:00 Intake Total 1100 ml 993 ml 515 ml 772 ml Output Total 2700 ml 1325 ml 825 ml 1475 ml Balance -1600 ml -332 ml -310 ml -703 ml Intake Oral 480 ml 240 ml 120 ml 240 ml IV Total 620 ml 753 ml 395 ml 532 ml Output Urine Total 2700 ml 1325 ml 825 ml 1475 ml # Bowel Movements 2 Result Diagram: 04/30/17 0505 04/28/17 0341 Objective Remarks GENERAL: Patient appearing older than stated age, expressive aphasia. CARDIOVASCULAR: Normal rate and regular rhythm without murmurs, gallops, or rubs. RESPIRATORY: Good respiratory efforts. Breath sounds equal and clear to auscultation bilaterally. GASTROINTESTINAL: Abdomen soft, non-tender, non-distended. Normal active bowel sounds MUSCULOSKELETAL: Extremities without cyanosis, or edema. NEURO: Expressive aphasia, right sided paralysis. PSYCH: Appropriate mood and affect. Procedures 04/22/17 EGD 04/23/13 colonoscopy A/P Problem List: (1) Upper GI bleed ICD Code: K92.2 Status: Acute (2) Elevated INR ICD Code: R79.1 Status: Resolved (3) Anemia ICD Code: D64.9 Status: Acute (4) History of CVA with residual deficit ICD Code: I69.30 Status: Chronic Assessment and Plan 66-year-old male with: GI bleed, anemia secondary to blood loss: Switch to by mouth Protonix. Appreciate GI recommendations. Status post EGD with cautery of AVM. S/P colonoscopy, which revealed a colon mass. General surgery following. Status post biopsy. Pathology revealed well-differentiated adenocarcinoma of the colon. Colon cancer: Discussed with general surgery. Plan for resection early next week. Cleared from Cardiac standpoint for surgery. Oncology following. History of CVA: Significant expressive aphasia and right sided paralysis. Unable to use anticoagulation secondary to GI bleed as above. Patient resides at a long-term facility. Will need GI clearance post op regarding when it will be acceptable to restart Coumadin. Microcytic anemia/iron deficiency anemia secondary to blood loss and malignancy : Appreciate hematology following. Iron infusion. Coagulopathy: Coumadin on hold. Patient received in K, FFP. INR down to 1. Dyslipidemia: Home medications on hold until okay with GI. DVT prophylaxis: CHANTALE Bass. Heparin subq as there is no further evidence of bleeding Demi Cruz MD May 01, 2017 10:07
[2017-05-01 12:00] VITALS: BP 97/56; PULSE 82; RESP 17; TEMP 98.9; O2SAT 94
--- NOTE | 2017-05-01 12:29 | HHI.PR ---
Subjective Subjective Notes feels depressed today Objective Vitals/I&O Vital Signs Date Time Temp Pulse Resp B/P Pulse Ox O2 Delivery O2 Flow Rate FiO2 05/01/17 08:00 97.3 86 20 99/58 95 Abdomen: Non-distended, Non-tender A/P Assessment and Plan 66yo male with colon mass, LGIB, stable HH stable VSS encouraged patient plan for OR Wednesday with Gavino Morales MD May 01, 2017 12:29
[2017-05-01 16:00] VITALS: BP 93/54; PULSE 75; RESP 15; TEMP 98.4; O2SAT 95
[2017-05-01 20:00] VITALS: BP 102/62; PULSE 78; RESP 20; TEMP 96.7; O2SAT 95
[2017-05-01] MEDS: PANTOPRAZOLE SOD 40 MG DELAYED RELEASE TAB PO SCH (21:31)
[2017-05-01] MEDS: CHLORHEXIDINE GLUCONATE 2 % 1 PACK (2 CLOTHS) TOP SCH (21:32)
[2017-05-02] VITALS: BP 94/58; PULSE 82; RESP 18; TEMP 97.3; O2SAT 94
[2017-05-02 04:00] VITALS: BP 98/60; PULSE 79; RESP 18; TEMP 97.7; O2SAT 95
[2017-05-02 04:15] LABS: HEMATOCRIT 25.6 % (39.0-51.0); MEAN CORPUSCULAR HEMOGLOBIN 25.7 PG (27.0-34.0); PLATELET COUNT 409 TH/MM3 (150-450); RED BLOOD COUNT 3.28 MIL/MM3 (4.50-5.90); RED CELL DISTRIBUTION WIDTH 17.1 % (11.6-17.2)
[2017-05-02 04:16] LABS: REVIEW FLAG FINAL
[2017-05-02 04:21] LABS: BICARBONATE 29.2 MEQ/L (21.0-32.0); POTASSIUM 3.7 MEQ/L (3.5-5.1)
[2017-05-02] MEDS ORDERED: MAGNESIUM CITRATE SOLN 300 ML BTL PO ONE (07:15)
[2017-05-02 08:00] VITALS: BP 99/54; PULSE 74; RESP 17; TEMP 98; O2SAT 93
[2017-05-02] MEDS: IRON SUCROSE INJ 200 MG in SODIUM CHLORIDE 0.9% INJ 100 ML IV SCH (08:15)
[2017-05-02] MEDS: HEPARIN SODIUM - SQ 10,000 UNITS/ML VIAL SQ SCH ×2 (08:15→21:35)
[2017-05-02] MEDS: DOCUSATE SODIUM 50 MG/SENNA 8.6 MG TAB PO SCH ×2 (08:16→21:29)
[2017-05-02] MEDS: PANTOPRAZOLE SOD 40 MG DELAYED RELEASE TAB PO SCH ×2 (08:16→21:29)
[2017-05-02] MEDS: SODIUM CHLORIDE 0.9% FLUSH 10 ML FLUSH IV FLUSH SCH ×2 (08:19→21:30)
--- NOTE | 2017-05-02 09:52 | HHI.PR ---
Subjective Remarks Patient reports is feeling okay. No abdominal pain, no nausea or vomiting. Objective Vitals Vital Signs Date Time Temp Pulse Resp B/P Pulse Ox O2 Delivery O2 Flow Rate FiO2 05/02/17 08:00 98.0 74 17 99/54 93 05/02/17 04:00 97.7 79 18 98/60 95 05/02/17 00:00 97.3 82 18 94/58 94 05/01/17 20:00 96.7 78 20 102/62 95 05/01/17 16:00 98.4 75 15 93/54 95 05/01/17 12:00 98.9 82 17 97/56 94 I/O 05/01/17 05/01/17 05/01/17 05/02/17 05/02/17 05/02/17 07:00 15:00 23:00 07:00 15:00 23:00 Intake Total 772 ml 480 ml 240 ml 120 ml Output Total 1475 ml 950 ml 300 ml 1650 ml Balance -703 ml -470 ml -60 ml -1530 ml Intake Oral 240 ml 480 ml 240 ml 120 ml IV Total 532 ml Output Urine Total 1475 ml 950 ml 300 ml 1650 ml # Bowel Movements 1 0 0 Result Diagram: 05/02/17 0251 05/02/17 0251 Objective Remarks GENERAL: Patient appearing older than stated age, expressive aphasia. CARDIOVASCULAR: Normal rate and regular rhythm without murmurs, gallops, or rubs. RESPIRATORY: Good respiratory efforts. Breath sounds equal and clear to auscultation bilaterally. GASTROINTESTINAL: Abdomen soft, non-tender, non-distended. Normal active bowel sounds MUSCULOSKELETAL: Extremities without cyanosis, or edema. NEURO: Expressive aphasia, right sided paralysis. PSYCH: Appropriate mood and affect. Procedures 04/22/17 EGD 04/23/13 colonoscopy A/P Problem List: (1) Upper GI bleed ICD Code: K92.2 Status: Acute (2) Elevated INR ICD Code: R79.1 Status: Resolved (3) Anemia ICD Code: D64.9 Status: Acute (4) History of CVA with residual deficit ICD Code: I69.30 Status: Chronic Assessment and Plan 66-year-old male with: GI bleed, anemia secondary to blood loss: Continue by mouth Protonix. Appreciate GI recommendations. Status post EGD with cautery of AVM. S/P colonoscopy, which revealed a colon mass. General surgery following. Status post biopsy. Pathology revealed well-differentiated adenocarcinoma of the colon. Plan for or tomorrow with general surgery. Colon cancer: Discussed with general surgery. Plan for resection tomorrow. Cleared from Cardiac standpoint for surgery. Oncology following. No evidence on imaging for metastatic disease. History of CVA: Significant expressive aphasia and right sided paralysis. Unable to use anticoagulation secondary to GI bleed as above. Patient resides at a [facility] facility. Will need GI and surgery clearance post op regarding when it will be acceptable to restart Coumadin. Microcytic anemia/iron deficiency anemia secondary to blood loss and malignancy : Appreciate hematology following. Iron infusion per hematology. Coagulopathy: Coumadin on hold. Patient received in K, FFP. INR down to 1. Dyslipidemia: Home medications on hold until okay with GI. DVT prophylaxis: SCDs, CHANTALE pat. Heparin subq as there is no further evidence of active bleeding Discharge Planning OR in a.m. Eventually back to SNF. Demi Cruz MD May 02, 2017 09:52
--- NOTE | 2017-05-02 10:10 | HHI.PR ---
Subjective Subjective Notes no acute issues, hh stable Objective Vitals/I&O Vital Signs Date Time Temp Pulse Resp B/P Pulse Ox O2 Delivery O2 Flow Rate FiO2 05/02/17 08:00 98.0 74 17 99/54 93 Labs Laboratory Tests Test 05/02/17 02:51 White Blood Count 8.0 Red Blood Count 3.28 Hemoglobin 8.4 Hematocrit 25.6 Mean Corpuscular Volume 78.0 Mean Corpuscular Hemoglobin 25.7 Mean Corpuscular Hemoglobin 33.0 Concent Red Cell Distribution Width 17.1 Platelet Count 409 Mean Platelet Volume 7.2 Sodium Level 138 Potassium Level 3.7 Chloride Level 103 Carbon Dioxide Level 29.2 Anion Gap 6 Blood Urea Nitrogen 13 Creatinine 0.49 Estimat Glomerular Filtration 171 Rate Random Glucose 85 Calcium Level 8.6 Cardiovascular: Regular Lungs: Clear Abdomen: Other (soft nt/nd) A/P Assessment and Plan GI bleed hepatic flexure mass, HH stable, ct reviewed PLAN bowel prep mg citrate clears liq npo after mn or tomorrow Michel Mercedes MD May 02, 2017 10:10
[2017-05-02] MEDS ORDERED: ceFAZolin 2 GM PREMIX 50 ML IV SCH (10:15)
[2017-05-02 12:00] VITALS: BP 98/57; PULSE 77; RESP 17; TEMP 97.6; O2SAT 94
[2017-05-02 16:00] VITALS: BP 111/68; PULSE 75; RESP 17; TEMP 98.1; O2SAT 96
[2017-05-02 20:00] VITALS: BP 120/57; PULSE 78; RESP 22; TEMP 97.9; O2SAT 95
[2017-05-02] MEDS: CHLORHEXIDINE GLUCONATE 2 % 1 PACK (2 CLOTHS) TOP SCH (21:35)
[2017-05-03] VITALS: BP 115/58; PULSE 76; RESP 20; TEMP 97.1; O2SAT 95
[2017-05-03 05:09] LABS: HEMATOCRIT 29.7 % (39.0-51.0); MEAN CELL VOLUME 77.9 FL (80.0-100.0); MEAN CORPUSCULAR HGB CONC 32.1 % (32.0-36.0); PLATELET COUNT 476 TH/MM3 (150-450); RED BLOOD COUNT 3.81 MIL/MM3 (4.50-5.90); RED CELL DISTRIBUTION WIDTH 17.2 % (11.6-17.2); REVIEW FLAG FINAL; WHITE BLOOD COUNT 9.5 TH/MM3 (4.0-11.0)
[2017-05-03 08:00] VITALS: BP 106/61; PULSE 76; RESP 20; TEMP 97.6; O2SAT 96
[2017-05-03] MEDS: DOCUSATE SODIUM 50 MG/SENNA 8.6 MG TAB PO SCH ×2 (08:56→20:52)
[2017-05-03] MEDS: IRON SUCROSE INJ 200 MG in SODIUM CHLORIDE 0.9% INJ 100 ML IV SCH (08:56)
[2017-05-03] MEDS: SODIUM CHLORIDE 0.9% FLUSH 10 ML FLUSH IV FLUSH SCH ×2 (08:56→20:51)
[2017-05-03] MEDS: PANTOPRAZOLE SOD 40 MG DELAYED RELEASE TAB PO SCH ×2 (08:57→20:52)
--- NOTE | 2017-05-03 09:01 | PD.ONC.PN ---
Subjective Subjective Remarks Afebrile overnight. Patient resting in bed in nad. Going for surgery this afternoon. Objective Data Date Time Temp Pulse Resp B/P Pulse Ox O2 Delivery O2 Flow Rate FiO2 05/03/17 00:00 97.1 76 20 115/58 95 05/02/17 20:00 97.9 78 22 120/57 95 05/02/17 16:00 98.1 75 17 111/68 96 05/02/17 12:00 97.6 77 17 98/57 94 05/03/17 05/03/17 05/03/17 07:00 15:00 23:00 Intake Total 0 ml Output Total 1100 ml Balance -1100 ml Result Diagram: 05/03/17 0400 05/02/17 0251 Laboratory Results Laboratory Tests Test 05/03/17 04:00 White Blood Count 9.5 TH/MM3 Red Blood Count 3.81 MIL/MM3 Hemoglobin 9.5 GM/DL Hematocrit 29.7 % Mean Corpuscular Volume 77.9 FL Mean Corpuscular Hemoglobin 25.0 PG Mean Corpuscular Hemoglobin 32.1 % Concent Red Cell Distribution Width 17.2 % Platelet Count 476 TH/MM3 Mean Platelet Volume 6.8 FL Administered Medications Medications (Trade) Dose Ordered Sig/Titus Route PRN Reason Start Time Stop Time Status Last Admin Dose Admin Sodium Chloride (NS Flush) 2 ml BID IV FLUSH 04/21/17 21:00 05/02/17 21:30 Chlorhexidine Gluconate (Chlorhexidine 2% Cloth) Taper DAILY@04 TOP 04/22/17 04:00 04/18/18 03:59 04/23/17 03:56 Senna/Docusate Sodium (Kaleigh-Colace) 1 tab BID PO 04/21/17 21:00 05/02/17 21:29 Magnesium Hydroxide (Milk Of Magnesia Liq) 30 ml Q12H PRN PO MILD - MODERATE CONSTIPATION 04/21/17 19:45 05/02/17 18:16 Lactulose (Lactulose Liq) 30 ml DAILY PRN PO SEVERE CONSITIPATION 04/21/17 19:45 05/02/17 21:28 Heparin Sodium (Porcine) 5000 units 5,000 units Q12H SQ 04/29/17 10:00 Hold 05/02/17 21:35 Iron Sucrose/ Sodium Chloride (Venofer Inj/NS Inj) 110 ml @ 110 mls/hr DAILY IV 05/01/17 09:00 05/03/17 09:59 05/02/17 08:15 Pantoprazole Sodium (Protonix) 40 mg Q12HR PO 05/01/17 21:00 05/02/17 21:29 Objective Remarks GENERAL: Middle aged male upright in bed in nad. SKIN: Warm and dry. HEAD: Normocephalic. EYES: No injection or drainage. NECK: Supple, trachea midline. CARDIOVASCULAR: +S1/S2 RESPIRATORY: Breath sounds equal bilaterally. No accessory muscle use. GASTROINTESTINAL: Abdomen soft, non-tender, nondistended. EXTREMITIES: No cyanosis NEUROLOGICAL: awake and alert. right sided yaz-paresis. Assessment/Plan Problem List: (1) Anemia due to GI blood loss Status: Acute Plan: --Severe microcytic anemia likely due to the malignancy and blood loss from the GI tract. --iron studies show low serum iron, IV iron sucrose given --seen by Gastroenterology and he underwent an EGD and colonoscopy. --EGD showed AVMs which were ablated. colonoscopy, 05/15/2017 showed mass in the hepatic flexure. +diverticulosis in the sigmoid colon. +pedunculated polyp in the descending colon. He had hot snare polypectomy and complete removal of polyp. (2) Colon adenocarcinoma Status: Acute Plan: --Colon adenocarcinoma involving the hepatic flexure. --CT abdomen and pelvis--no evidence of metastatic disease. +focal mural thickening around the hepatic flexure.+enlarged prostate. --CT chest shows three subpleural nodules, less than 5mm --Final pathology results from the biopsy of the hepatic flexure mass confirmed adenocarcinoma. --plans for surgery early next week. --Further recommendation will be made after his colectomy. --If this is an early stage cancer, Stage I or II, he will not likely need any adjuvant chemotherapy, but if this is a high-risk tumor based on the pathological features and if lymph nodes are involved, then he may need adjuvant treatment. Assessment 66y/o male with colon adenocarcinoma admitted with anemia, warfarin-induced coagulopathy and weakness. -- history of left-sided stroke and has right-sided deficits and significant aphasia. Plan 1. OR today for colectomy 2. await findings from surgery to determine need for adjuvant therapy Attending Statement The exam, history, and the medical decision-making described in the above note were completed with the assistance of the mid-level provider. I reviewed and agree with the findings presented. I attest that I had a [id number] encounter with the patient on the same day, and personally performed and documented my assessment and findings in the medical record. iron deficient and microcytic anemia will give iron sucrose s/p hemicolectomy --pathology pending CT scan of the chest reviewed. no metastatic disease. non-specific very small nodules and AP window LN 1.3cm Hypoalbuminemia/malnutrition--albumin 2.2 Dietary consult. will need nutrition focus PT d/w rn Diann Wood May 03, 2017 09:01 Rafael Skaggs MD May 03, 2017 23:14
[2017-05-03] MEDS ORDERED: metroNIDAZOLE 500 MG INJ 100 ML IV ONE (10:46)
[2017-05-03] MEDS ORDERED: BUPIVACAINE/EPINEPHRINE 0.25% 50 ML VIAL INFIL ONE (12:56)
[2017-05-03] MEDS ORDERED: PROPOFOL 200 MG/20 ML AMP IV ONE (13:46)
[2017-05-03] MEDS ORDERED: NEOSTIGMINE 3 MG/3 ML SYR IV ONE (13:47)
[2017-05-03] MEDS ORDERED: ePHEDrine/NS 25 MG/5 ML SYR IV ONE (13:47)
[2017-05-03] MEDS ORDERED: ACETAMINOPHEN 1000 MG/100 ML VIAL IV ONE (13:47)
[2017-05-03] MEDS ORDERED: ONDANSETRON HCL 4 MG/2 ML VIAL IV PUSH ONE (13:48)
[2017-05-03] MEDS ORDERED: LACTATED RINGER'S 1000 ML INJ 3,000 ML IV ONE (13:48)
[2017-05-03] MEDS ORDERED: PHENYLEPH/NS 1000 MCG/10 ML SYR IV ONE (13:48)
[2017-05-03] MEDS ORDERED: metroNIDAZOLE 500 MG INJ 100 ML IV PRN (14:00)
--- NOTE | 2017-05-03 14:56 | HHI.PR ---
Immediate Post Op Note Procedure Date: May 03, 2017 Pre Op Diagnosis: hepatic flexure colon cancer Post Op Diagnosis: same Surgeon: Michel Mercedes MD Wrap Checker(s): Dr. Adam Miller needed due to the complex laparoscopic case. Dr. Miller assisted with camera control and retraction Procedure: Diagnostic laparoscopy, laparoscopic right hemicolectomy with primary anastomosis, laparoscopic takedown of hepatic flexure Findings: hepatic flexure mass, no metastatic disease Complications: none Specimen(s) removed: right colon Estimated blood loss: 50cc Anesthesia: General Drains: None IVF (2300cc) Patient to: PACU Patient Condition: Good Michel Mercedes MD May 03, 2017 14:56
[2017-05-03] MEDS ORDERED: ACETAMINOPHEN 1000 MG/100 ML VIAL IV SCH (15:00)
[2017-05-03] MEDS ORDERED: fentaNYL CITRATE 250 MCG/5 ML AMP ONE (15:14)
[2017-05-03] MEDS ORDERED: MIDAZOLAM HCL 2 MG/2 ML VIAL ONE (15:14)
[2017-05-03] MEDS ORDERED: *morphine SULFATE 8 MG/ML PERIprocedure ONLY ONE ×2 (15:27→15:44)
[2017-05-03 15:58] LABS: BACTERIA, URINE RARE /hpf; BLOOD, URINE NEG (NEG); GLUCOSE,URINE NEG (NEG); HYALINE CAST, URINE 3 /lpf (RARE); KETONE, URINE NEG (NEG); NITRITE,URINE NEG (NEG); SQUAMOUS EPITHELIAL CELL URINE <1 /hpf (0-5); URINE COLOR YELLOW (YELLW/STRAW)
[2017-05-03 15:59] LABS: COMMENT (UR) CATH-CULTURE IND; CULTURE IF INDICATED CATH CULTURE IND
[2017-05-03 16:15] VITALS: BP 139/66; PULSE 80; RESP 20; TEMP 97.3; O2SAT 100
--- NOTE | 2017-05-03 16:57 | HHI.PR ---
Subjective Remarks The pt said his pain was an 8/10 in severity. He had his surgery earlier. No other acute complaints. Discussed with nursing. Objective Vitals Vital Signs Date Time Temp Pulse Resp B/P Pulse Ox O2 Delivery O2 Flow Rate FiO2 05/03/17 16:15 97.3 80 20 139/66 100 05/03/17 16:00 97.7 74 15 148/69 100 Nasal Cannula 2 05/03/17 15:45 79 16 150/80 100 Nasal Cannula 2 05/03/17 15:30 75 16 152/83 100 Nasal Cannula 3 05/03/17 15:15 74 15 164/79 100 Nasal Cannula 3 05/03/17 15:05 97.5 74 15 157/85 99 Nasal Cannula 3 05/03/17 08:00 97.6 76 20 106/61 96 05/03/17 00:00 97.1 76 20 115/58 95 05/02/17 20:00 97.9 78 22 120/57 95 I/O 05/02/17 05/02/17 05/02/17 05/03/17 05/03/17 05/03/17 07:00 15:00 23:00 07:00 15:00 23:00 Intake Total 120 ml 1020 ml 480 ml 0 ml 0 ml 2600 ml Output Total 1650 ml 675 ml 950 ml 1100 ml 250 ml Balance -1530 ml 345 ml -470 ml -1100 ml 0 ml 2350 ml Intake Oral 120 ml 1020 ml 480 ml 0 ml IV Total 0 ml 200 ml Other 2400 ml Output Urine Total 1650 ml 675 ml 950 ml 1100 ml 200 ml Estimated Blood Loss 50 ml # Bowel Movements 0 0 0 1 Result Diagram: 05/03/17 0400 05/02/17 0251 Imaging Last Impressions Chest CT 04/30/17 0000 Signed Impressions: Service Date/Time: Sunday, April 30, 2017 08:14 - CONCLUSION: 1. Redemonstration of moderate upper lobe predominant centrilobular emphysema with biapical and anterior left upper lobe scarring. 2. Redemonstration of at least three sub-5 mm solid subpleural nodules. Followup examination is recommended in 12 months (multiple solid nodules. <6mm, in high risk patient) per 2017 Fleischner guidelines. These nodules are below the threshold for PET exam. 3. Redemonstration of nonspecific 1.3 cm left AP window lymph node. Jhon Flores MD Abdomen/Pelvis CT 04/25/17 0000 Signed Impressions: Service Date/Time: Tuesday, April 25, 2017 13:19 - CONCLUSION: 1. No evidence for metastatic disease to the abdomen and pelvis. 2. Focal mural thickening and near the hepatic flexure with history of colonic mass. 3. Colonic diverticulosis without diverticulitis. Prostatic enlargement. Previous screw fixation right femur. Tutu Givens MD Head CT 04/22/17 0751 Signed Impressions: Service Date/Time: March 04:42 - CONCLUSION: No acute findings. 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 Dagoberto English MD Objective Remarks GENERAL: Patient appearing older than stated age, expressive aphasia. SKIN: Pale. CARDIOVASCULAR: Normal rate and regular rhythm without murmurs, gallops, or rubs. RESPIRATORY: Good respiratory efforts. Breath sounds equal and clear to auscultation bilaterally. GASTROINTESTINAL: Abdomen soft, non-tender, non-distended. Normal active bowel sounds. Surgical site appears clean, noninfected. MUSCULOSKELETAL: Extremities without cyanosis, or edema. NEURO: Expressive aphasia, right sided paralysis. PSYCH: Calm. Procedures 04/22/17 EGD 04/23/13 colonoscopy Medications and IVs Current Medications Medications (Trade) Dose Ordered Sig/Titus Route Start Time Stop Time Status Last Admin (Mag-Al Plus Susp Liq) 15 ml Q6H PRN PO 04/21/17 21:15 (NS Flush) 2 ml UNSCH PRN IV FLUSH 04/21/17 19:45 (NS Flush) 2 ml BID IV FLUSH 04/21/17 21:00 05/03/17 08:56 (Morphine Inj) 2 mg Q2H PRN IV 04/21/17 19:45 (Ativan Inj) 2 mg Q4H PRN IV 04/21/17 19:45 Miscellaneous Information 1 Q361D XX 04/21/17 19:45 (Chlorhexidine 2% Cloth) Taper DAILY@04 TOP 04/22/17 04:00 04/18/18 03:59 04/23/17 03:56 (Chlorhexidine 2% Cloth) 3 pack UNSCH PRN TOP 04/21/17 19:45 (Kaleigh-Colace) 1 tab BID PO 04/21/17 21:00 05/02/17 21:29 (Milk Of Magnesia Liq) 30 ml Q12H PRN PO 04/21/17 19:45 05/02/17 18:16 (Senokot) 17.2 mg Q12H PRN PO 04/21/17 19:45 (Dulcolax Supp) 10 mg DAILY PRN RECTAL 04/21/17 19:45 (Lactulose Liq) 30 ml DAILY PRN PO 04/21/17 19:45 05/02/17 21:28 (Heparin Inj) 5,000 units Q12H SQ 04/29/17 10:00 Hold 05/02/17 21:35 Pantoprazole Sodium 40 mg 40 mg Q12HR PO 05/01/17 21:00 05/03/17 08:57 (Flagyl 500 Mg Inj) 100 ml @ 100 mls/hr Q8H IV 05/03/17 19:00 05/05/17 18:59 (Ofirmev Inj) 1,000 mg Q6H IV 05/03/17 18:00 A/P Problem List: (1) Upper GI bleed ICD Code: K92.2 Status: Acute (2) Elevated INR ICD Code: R79.1 Status: Resolved (3) Anemia ICD Code: D64.9 Status: Acute (4) History of CVA with residual deficit ICD Code: I69.30 Status: Chronic Assessment and Plan GI bleed/ Anemia secondary to blood loss Appreciate GI recommendations. Status post EGD with cautery of AVM. S/P colonoscopy, which revealed a colon mass. General surgery following. Status post biopsy. Pathology revealed well-differentiated adenocarcinoma of the colon. - follow CBC and transfuse as needed. - PPI. - iron per hematology. Colon cancer Discussed with general surgery. No evidence on imaging for metastatic disease. Cleared from Cardiac standpoint for surgery. S/p laparoscopic right hemicolectomy with primary anastomosis 05/03. - Oncology following. - wound care and pain control per surgery. History of CVA Significant expressive aphasia and right sided paralysis. Unable to use anticoagulation secondary to GI bleed as above. Patient resides at a halfway facility. - Will need GI and surgery clearance post op regarding when it will be acceptable to restart Coumadin. Coagulopathy Patient received vit K, FFP. - Coumadin on hold. DVT prophylaxis: SCDs, CHANTALE hose. Heparin subq as there is no further evidence of active bleeding Discharge Planning Awaiting clinical improvement Mike Gagnon DO May 03, 2017 16:57
[2017-05-03] MEDS: MORPHINE SULFATE 4 MG/ML INJ IV PRN ×2 (17:57→20:52)
[2017-05-03] MEDS: ACETAMINOPHEN 1000 MG/100 ML VIAL IV SCH (17:58)
[2017-05-03] MEDS: metroNIDAZOLE 500 MG INJ 100 ML IV SCH (18:56)
[2017-05-03] MEDS ORDERED: DO NOT ADM ANY ANTICOAGULANT DRUGS PRN (19:15)
[2017-05-03 20:00] VITALS: BP 132/69; PULSE 88; RESP 19; TEMP 96.4; O2SAT 100
[2017-05-04] VITALS (8 sets, daily range): BP systolic 106–144; BP diastolic 60–80; PULSE 76–103; RESP 16–21; TEMP 96.4–99.7; O2SAT 95–100
[2017-05-04] MEDS: ACETAMINOPHEN 1000 MG/100 ML VIAL IV SCH ×5 (00:04→23:35)
[2017-05-04] MEDS: MORPHINE SULFATE 4 MG/ML INJ IV PRN ×2 (01:20→09:01)
[2017-05-04] MEDS: metroNIDAZOLE 500 MG INJ 100 ML IV SCH ×3 (02:49→17:37)
[2017-05-04] MEDS: CHLORHEXIDINE GLUCONATE 2 % 1 PACK (2 CLOTHS) TOP SCH (04:00)
[2017-05-04 05:42] LABS: BICARBONATE 26.5 MEQ/L (21.0-32.0); MAGNESIUM 1.8 MG/DL (1.5-2.5)
[2017-05-04 05:54] LABS: HEMATOCRIT 25.4 % (39.0-51.0); MEAN CELL VOLUME 77.5 FL (80.0-100.0); MEAN CORPUSCULAR HEMOGLOBIN 25.4 PG (27.0-34.0); MEAN CORPUSCULAR HGB CONC 32.8 % (32.0-36.0); PLATELET COUNT 451 TH/MM3 (150-450); RED BLOOD COUNT 3.28 MIL/MM3 (4.50-5.90); RED CELL DISTRIBUTION WIDTH 17.3 % (11.6-17.2); REVIEW FLAG FINAL; WHITE BLOOD COUNT 11.4 TH/MM3 (4.0-11.0)
--- NOTE | 2017-05-04 07:48 | HHI.PR ---
Subjective Subjective Notes no acute issues, no nausea or vomiting, no oob yet Objective Vitals/I&O Vital Signs Date Time Temp Pulse Resp B/P Pulse Ox O2 Delivery O2 Flow Rate FiO2 05/04/17 04:00 96.4 78 19 106/64 100 05/04/17 03:28 Nasal Cannula 3.00 Labs Laboratory Tests Test 05/03/17 05/03/17 05/04/17 12:30 14:53 04:53 Blood Type O POSITIVE Antibody Screen NEGATIVE Crossmatch Leukocyte-Reduced Red Blood Cells Blood Bank Comment Urine Color YELLOW Urine Turbidity HAZY Urine pH 8.0 Urine Specific [place] 1.021 Urine Protein TRACE Urine Glucose (UA) NEG Urine Ketones NEG Urine Occult Blood NEG Urine Nitrite NEG Urine Bilirubin NEG Urine Urobilinogen LESS THAN 2.0 Urine Leukocyte Esterase NEG Urine RBC 1 Urine WBC 3 Urine Squamous Epithelial <1 Cells Urine Amorphous Sediment RARE Urine Bacteria RARE Urine Hyaline Casts 3 Microscopic Urinalysis Comment CATH-CULTURE IND White Blood Count 11.4 Red Blood Count 3.28 Hemoglobin 8.3 Hematocrit 25.4 Mean Corpuscular Volume 77.5 Mean Corpuscular Hemoglobin 25.4 Mean Corpuscular Hemoglobin 32.8 Concent Red Cell Distribution Width 17.3 Platelet Count 451 Mean Platelet Volume 6.6 Sodium Level 135 Potassium Level 4.0 Chloride Level 99 Carbon Dioxide Level 26.5 Anion Gap 10 Blood Urea Nitrogen 9 Creatinine 0.53 Estimat Glomerular Filtration 157 Rate Random Glucose 112 Calcium Level 8.2 Magnesium Level 1.8 Date/Time Procedure Status Source Growth 05/03/17 14:53 Urine Culture Received Urine Catheterized Urine Pending 05/03/17 14:53 Cancelled Urine Catheterized Urine Cardiovascular: Regular Lungs: Clear Abdomen: Other (incisional tenderness garfield in place) A/P Assessment and Plan GI bleed hepatic flexure mass, HH stable, ct reviewed, POD 1 Lap right yaz colectomy PLAN clear liquid diet pain control encourage oob PT eval IS start lovenox tomorrow Michel Mercedes MD May 04, 2017 07:48
[2017-05-04] MEDS: SODIUM CHLORIDE 0.9% FLUSH 10 ML FLUSH IV FLUSH SCH ×2 (09:01→21:00)
[2017-05-04] MEDS: IRON SUCROSE INJ 200 MG in SODIUM CHLORIDE 0.9% INJ 100 ML IV SCH (09:02)
[2017-05-04] MEDS: DOCUSATE SODIUM 50 MG/SENNA 8.6 MG TAB PO SCH ×2 (09:06→21:21)
--- NOTE | 2017-05-04 10:54 | PD.ONC.PN ---
Subjective Subjective Remarks Afebrile overnight. Patient resting in bed in nad. Had some pain in abdomen but improved after morphine injection.; Objective Data Date Time Temp Pulse Resp B/P Pulse Ox O2 Delivery O2 Flow Rate FiO2 05/04/17 08:00 97.0 79 17 114/61 100 05/04/17 04:00 96.4 78 19 106/64 100 05/04/17 03:28 98 Nasal Cannula 3.00 05/04/17 00:00 97.9 82 21 144/66 99 05/03/17 20:00 96.4 88 19 132/69 100 05/03/17 16:15 97.3 80 20 139/66 100 05/03/17 16:00 97.7 74 15 148/69 100 Nasal Cannula 2 05/03/17 15:45 79 16 150/80 100 Nasal Cannula 2 05/03/17 15:30 75 16 152/83 100 Nasal Cannula 3 05/03/17 15:15 74 15 164/79 100 Nasal Cannula 3 05/03/17 15:05 97.5 74 15 157/85 99 Nasal Cannula 3 05/04/17 05/04/17 05/04/17 07:00 15:00 23:00 Intake Total 240 ml Balance 240 ml Result Diagram: 05/04/17 0453 05/04/17 0453 Laboratory Results Laboratory Tests Test 05/03/17 05/03/17 05/04/17 12:30 14:53 04:53 Blood Type O POSITIVE Antibody Screen NEGATIVE Crossmatch Leukocyte-Reduced Red Blood Cells Blood Bank Comment Urine Color YELLOW Urine Turbidity HAZY Urine pH 8.0 Urine Specific [place] 1.021 Urine Protein TRACE mg/dL Urine Glucose (UA) NEG mg/dL Urine Ketones NEG mg/dL Urine Occult Blood NEG Urine Nitrite NEG Urine Bilirubin NEG Urine Urobilinogen LESS THAN 2.0 MG/DL Urine Leukocyte Esterase NEG Urine RBC 1 /hpf Urine WBC 3 /hpf Urine Squamous Epithelial <1 /hpf Cells Urine Amorphous Sediment RARE Urine Bacteria RARE /hpf Urine Hyaline Casts 3 /lpf Microscopic Urinalysis Comment CATH-CULTURE IND White Blood Count 11.4 TH/MM3 Red Blood Count 3.28 MIL/MM3 Hemoglobin 8.3 GM/DL Hematocrit 25.4 % Mean Corpuscular Volume 77.5 FL Mean Corpuscular Hemoglobin 25.4 PG Mean Corpuscular Hemoglobin 32.8 % Concent Red Cell Distribution Width 17.3 % Platelet Count 451 TH/MM3 Mean Platelet Volume 6.6 FL Sodium Level 135 MEQ/L Potassium Level 4.0 MEQ/L Chloride Level 99 MEQ/L Carbon Dioxide Level 26.5 MEQ/L Anion Gap 10 MEQ/L Blood Urea Nitrogen 9 MG/DL Creatinine 0.53 MG/DL Estimat Glomerular Filtration 157 ML/MIN Rate Random Glucose 112 MG/DL Calcium Level 8.2 MG/DL Magnesium Level 1.8 MG/DL Culture Results Microbiology Date/Time Procedure Status Source Growth 05/03/17 14:53 Urine Culture Received Urine Catheterized Urine Pending 05/03/17 14:53 Cancelled Urine Catheterized Urine Administered Medications Medications (Trade) Dose Ordered Sig/Titus Route PRN Reason Start Time Stop Time Status Last Admin Dose Admin Sodium Chloride (NS Flush) 2 ml BID IV FLUSH 04/21/17 21:00 05/04/17 09:01 Morphine Sulfate (Morphine Inj) 2 mg Q2H PRN IV PAIN SCALE 6 TO 10 04/21/17 19:45 05/04/17 09:01 Chlorhexidine Gluconate (Chlorhexidine 2% Cloth) Taper DAILY@04 TOP 04/22/17 04:00 04/18/18 03:59 04/23/17 03:56 Senna/Docusate Sodium (Kaleigh-Colace) 1 tab BID PO 04/21/17 21:00 05/04/17 09:06 Magnesium Hydroxide (Milk Of Magnesia Liq) 30 ml Q12H PRN PO MILD - MODERATE CONSTIPATION 04/21/17 19:45 05/02/17 18:16 Lactulose (Lactulose Liq) 30 ml DAILY PRN PO SEVERE CONSITIPATION 04/21/17 19:45 05/02/17 21:28 Heparin Sodium (Porcine) (Heparin Inj) 5,000 units Q12H SQ 04/29/17 10:00 Hold 05/02/17 21:35 Pantoprazole Sodium 40 mg 40 mg Q12HR PO 05/01/17 21:00 05/03/17 20:52 Metronidazole (Flagyl 500 Mg Inj) 100 ml @ 100 mls/hr Q8H IV 05/03/17 19:00 05/05/17 18:59 05/04/17 02:49 Acetaminophen 1000 mg 1,000 mg Q6H IV 05/03/17 18:00 7/11/17 04:59 Iron Sucrose/ Sodium Chloride (Venofer Inj/NS Inj) 110 ml @ 110 mls/hr DAILY IV 05/04/17 09:00 05/06/17 09:59 05/04/17 09:02 Objective Remarks GENERAL: Middle aged male supine in bed in nad. SKIN: Warm and dry. HEAD: Normocephalic. EYES: No injection or drainage. NECK: Supple, trachea midline. CARDIOVASCULAR: Regular rate and rhythm RESPIRATORY: Breath sounds equal bilaterally. No accessory muscle use. GASTROINTESTINAL: Abdomen soft, mildly tender, bandages c/d/i. nondistended. EXTREMITIES: No cyanosis NEUROLOGICAL: right sided hemiparesis. Assessment/Plan Problem List: (1) Anemia due to GI blood loss Status: Acute Plan: --Severe microcytic anemia likely due to the malignancy and blood loss from the GI tract. --iron studies show low serum iron, IV iron sucrose given --seen by Gastroenterology and he underwent an EGD and colonoscopy. --EGD showed AVMs which were ablated. colonoscopy, 05/15/2017 showed mass in the hepatic flexure. +diverticulosis in the sigmoid colon. +pedunculated polyp in the descending colon. He had hot snare polypectomy and complete removal of polyp. (2) Colon adenocarcinoma Status: Acute Plan: --Colon adenocarcinoma involving the hepatic flexure. --CT abdomen and pelvis--no evidence of metastatic disease. +focal mural thickening around the hepatic flexure.+enlarged prostate. --CT chest shows three subpleural nodules, less than 5mm --Final pathology results from the biopsy of the hepatic flexure mass confirmed adenocarcinoma. --plans for surgery early next week. --Further recommendation will be made after his colectomy. --If this is an early stage cancer, Stage I or II, he will not likely need any adjuvant chemotherapy, but if this is a high-risk tumor based on the pathological features and if lymph nodes are involved, then he may need adjuvant treatment. Assessment 66y/o male with colon adenocarcinoma admitted with anemia, warfarin-induced coagulopathy and weakness. -- history of left-sided stroke and has right-sided deficits and significant aphasia. Plan 1. await operative report 2. await pathology 3. continue pain management Attending Statement The exam, history, and the medical decision-making described in the above note were completed with the assistance of the mid-level provider. I reviewed and agree with the findings presented. I attest that I had a [id number] encounter with the patient on the same day, and personally performed and documented my assessment and findings in the medical record. Diann Wood May 04, 2017 10:54 Rafael Skaggs MD May 05, 2017 00:14
--- NOTE | 2017-05-04 10:56 | MP ---
cc: JEFERSON MERCEDES MD DATE OF SURGERY 05/03/2017 PREOPERATIVE DIAGNOSIS Hepatic flexure colon cancer, well differentiated adenocarcinoma. POSTOPERATIVE DIAGNOSIS Hepatic flexure colon cancer, well differentiated adenocarcinoma. PROCEDURE PERFORMED 1. Diagnostic laparoscopy 2. Laparoscopic right hemicolectomy 3. Laparoscopic takedown of hepatic flexure SURGEON Dr. Jeferson Mercedes AB INITIO E[employer] DEVELOPER Dr. Adam Miller. Dr. Miller needed due to the complexity of the laparoscopic case. Dr. Adam Miller assisted in retraction, camera control and assistance for this. ANESTHESIA GETA IV FLUIDS 2300 cc ESTIMATED BLOOD LOSS 20 cc DRAINS None COMPLICATIONS None WOUND CLASSIFICATION Clean, contaminated SPECIMENS Right colon sent for pathology. FINDINGS No evidence of metastatic disease, well-perfused colon and small bowel. INDICATIONS The patient is a 66-year-old male who presented with a GI bleed. The patient noted to have somewhat recent stroke placed on Coumadin, supratherapeutic INR and noted to have GI bleed and underwent colonoscopy with findings of a hepatic flexure mass. This was biopsied showing a well differentiated carcinoma. Decision was made for operative intervention after staging and metastatic workup which were further negative except for the mass. DISCUSSION Discussed with the patient in detail. The patient was noted to have expressive aphasia as well, otherwise cleared from a medical standpoint to undergo the procedure. PROCEDURE IN DETAIL The patient was taken to the operating suite, placed in the supine position. He was prepped and draped in the usual sterile fashion after induction of general endotracheal anesthesia. Brief time-out done stating correct patient, procedure and surgical site, we were all in agreement with this. Attention directed to the umbilicus where a small curvilinear incision made with an 11-blade. Veress needle placed intra-abdominally confirmation with saline drop test. Abdomen insufflated to 50 mm pneumoperitoneum. On cursory inspection, no evidence of injury. Two other ports placed including 5 mm ports placed in the midline, one mid epigastric done under direct visualization, a second one suprapubic 5 mm. Third port placed in the right upper quadrant for assist port. The patient then placed in Trendelenburg and airplaned to the left. The right colon was mobilized in a lateral to medial orientation. The white line of Toldt was taken down from the terminal ileum all the way to the hepatic flexure and then continued on mobilization on to the transverse colon. We did this noting to identify and protect the ureter. Further, we identified and protected the duodenum near the hepatic flexure. After a full mobilization and identifying the structures, we are comfortable with the mobility of the colon and bowel at this point and prior to initiation of our surgery, we did do a diagnostic laparoscopy. We examined the liver anterior surface without evidence of disease. We further looked in the peritoneum with the small bowel and under the diaphragms without evidence of tumor burden. At this point, we desufflated the abdomen. The midline port was extended both cephalad and caudal for about a 4-1/2 cm incision. This was done with a 15 blade. Further dissection done with electro Bovie cautery to the midline. Once we completed this, the Cristobal wound protector was obtained and placed within the wound bed. Next, the colon was identified, grasped and brought outside the abdomen. Proximally, several centimeters from terminal ileum in a well perfused area, we made a window in the mesentery and fired a blue load CLEO 55 stapler to transect this. We went proximally in the transverse colon. After palpating the middle colic vessel and preserving this and measuring 5 cm from the palpable tumor at the hepatic flexure in order to margins, we transected the colon after making a window in the mesentery with a 55 CLEO blue load. We extended the incision down the mesentery in order to achieve a high ligation and include at least 12 lymph notes. Using the harmonic scalpel, we transected the mesentery all the way on both the distal and cephalad ends up to the right colic vessels. These were isolated. Two Dalia clamps were used and transected with EndoShears. The specimen was then removed from the field. The right colic was tied off with 0 Vicryl x2. Next, we fashioned our stabled anastomosis. This was done by placing a stay suture at the staple line. Two enterotomies, one on the transverse colon tinea and the other on the antimesenteric of the ileum. A through and through layer was created with a 55 Endo-CLEO blue load. Hemostasis was obtained. [employer] grasper was then used to grasp the combined enterotomy. The TA stapler was used to approximate and staple this. The crotch suture was placed to the previous silk suture. The staple line was oversewn with a Lembert fashion for reinforcement. Next, the mesenteric defect was closed in running fashion with a 3-0 silk suture. On palpation, there was noted to be a patent anastomosis. The anastomosis looked healthy and viable as well. This was placed to back in the abdomen after irrigation and draping the omentum. Next, we changed our gloves and using #1 PDS to close the fascia to the midline incision. This was followed by miriam. The abdomen was then reinsufflated in order for inspection and the omentum was draped back over the anastomosis. Next, the abdomen was desufflated, ports were removed. Ports were closed using miriam. Local anesthetic injected at all port sites. Sterile dressings were then placed including a PAUL dressing to the midline. The patient tolerated procedure well. There were no intraoperative complications. All lap and instrument counts were correct at the end of the procedure. The patient was extubated and taken to the PACU. MD DEEJAY Patel/BETHANY /8:17 PM /10:42 AM
[2017-05-04] MEDS: PANTOPRAZOLE SOD 40 MG DELAYED RELEASE TAB PO SCH ×2 (11:55→21:22)
--- NOTE | 2017-05-04 15:45 | HHI.PR ---
Subjective Remarks The patient complains of 8 out of 10 pain in his abdomen. He had no other acute complaints. Objective Vitals Vital Signs Date Time Temp Pulse Resp B/P Pulse Ox O2 Delivery O2 Flow Rate FiO2 05/04/17 12:00 98.2 76 16 116/60 100 05/04/17 11:50 99 Nasal Cannula 3.00 05/04/17 08:00 97.0 79 17 114/61 100 05/04/17 04:00 96.4 78 19 106/64 100 05/04/17 03:28 98 Nasal Cannula 3.00 05/04/17 00:00 97.9 82 21 144/66 99 05/03/17 20:00 96.4 88 19 132/69 100 05/03/17 16:15 97.3 80 20 139/66 100 05/03/17 16:00 97.7 74 15 148/69 100 Nasal Cannula 2 05/03/17 15:45 79 16 150/80 100 Nasal Cannula 2 I/O 05/03/17 05/03/17 05/03/17 05/04/17 05/04/17 05/04/17 07:00 15:00 23:00 07:00 15:00 23:00 Intake Total 0 ml 0 ml 2600 ml 240 ml 1150 ml Output Total 1100 ml 450 ml 625 ml 1050 ml Balance -1100 ml -450 ml 1975 ml 240 ml 100 ml Intake Oral 0 ml 0 ml 0 ml 240 ml 1150 ml IV Total 0 ml 200 ml Other 2400 ml Output Urine Total 1100 ml 450 ml 575 ml 1050 ml Estimated Blood Loss 50 ml # Bowel Movements 1 0 Result Diagram: 05/04/17 0453 05/04/17 0453 Imaging Last Impressions Chest CT 04/30/17 0000 Signed Impressions: Service Date/Time: Sunday, April 30, 2017 08:14 - CONCLUSION: 1. Redemonstration of moderate upper lobe predominant centrilobular emphysema with biapical and anterior left upper lobe scarring. 2. Redemonstration of at least three sub-5 mm solid subpleural nodules. Followup examination is recommended in 12 months (multiple solid nodules. <6mm, in high risk patient) per 2017 Fleischner guidelines. These nodules are below the threshold for PET exam. 3. Redemonstration of nonspecific 1.3 cm left AP window lymph node. Jhon Flores MD Abdomen/Pelvis CT 04/25/17 0000 Signed Impressions: Service Date/Time: Tuesday, April 25, 2017 13:19 - CONCLUSION: 1. No evidence for metastatic disease to the abdomen and pelvis. 2. Focal mural thickening and near the hepatic flexure with history of colonic mass. 3. Colonic diverticulosis without diverticulitis. Prostatic enlargement. Previous screw fixation right femur. Tutu Givens MD Head CT 04/22/17 0751 Signed Impressions: Service Date/Time: March 04:42 - CONCLUSION: No acute findings. 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 Dagoberto English MD Objective Remarks GENERAL: Patient appearing older than stated age, expressive aphasia. SKIN: Pale. CARDIOVASCULAR: Normal rate and regular rhythm without murmurs, gallops, or rubs. RESPIRATORY: Good respiratory efforts. Breath sounds equal and clear to auscultation bilaterally. GASTROINTESTINAL: Abdomen soft, tender to palpation, non-distended. Normal active bowel sounds. Surgical site appears clean, noninfected. MUSCULOSKELETAL: Extremities without cyanosis, or edema. NEURO: Expressive aphasia, right sided paralysis. PSYCH: Calm. Procedures 04/22/17 EGD 04/23/13 colonoscopy Medications and IVs Current Medications Medications (Trade) Dose Ordered Sig/Titus Route Start Time Stop Time Status Last Admin (Mag-Al Plus Susp Liq) 15 ml Q6H PRN PO 04/21/17 21:15 (NS Flush) 2 ml UNSCH PRN IV FLUSH 04/21/17 19:45 (NS Flush) 2 ml BID IV FLUSH 04/21/17 21:00 05/04/17 09:01 (Morphine Inj) 2 mg Q2H PRN IV 04/21/17 19:45 05/04/17 09:01 (Ativan Inj) 2 mg Q4H PRN IV 04/21/17 19:45 Miscellaneous Information 1 Q361D XX 04/21/17 19:45 (Chlorhexidine 2% Cloth) Taper DAILY@04 TOP 04/22/17 04:00 04/18/18 03:59 04/23/17 03:56 (Chlorhexidine 2% Cloth) 3 pack UNSCH PRN TOP 04/21/17 19:45 (Kaleigh-Colace) 1 tab BID PO 04/21/17 21:00 05/04/17 09:06 (Milk Of Magnesia Liq) 30 ml Q12H PRN PO 04/21/17 19:45 05/02/17 18:16 (Senokot) 17.2 mg Q12H PRN PO 04/21/17 19:45 (Dulcolax Supp) 10 mg DAILY PRN RECTAL 04/21/17 19:45 (Lactulose Liq) 30 ml DAILY PRN PO 04/21/17 19:45 05/02/17 21:28 (Heparin Inj) 5,000 units Q12H SQ 04/29/17 10:00 Hold 05/02/17 21:35 Pantoprazole Sodium 40 mg 40 mg Q12HR PO 05/01/17 21:00 05/04/17 11:55 (Flagyl 500 Mg Inj) 100 ml @ 100 mls/hr Q8H IV 05/03/17 19:00 05/05/17 18:59 05/04/17 14:22 (Ofirmev Inj) 1,000 mg Q6H IV 05/03/17 18:00 05/04/17 11:55 Miscellaneous Information ALL NURSING DEPARTME... UNSCH PRN .XX 05/03/17 19:15 05/04/17 19:14 (Venofer Inj/NS Inj) 110 ml @ 110 mls/hr DAILY IV 05/04/17 09:00 05/06/17 09:59 05/04/17 09:02 A/P Problem List: (1) Upper GI bleed ICD Code: K92.2 Status: Acute (2) Elevated INR ICD Code: R79.1 Status: Resolved (3) Anemia ICD Code: D64.9 Status: Acute (4) History of CVA with residual deficit ICD Code: I69.30 Status: Chronic Assessment and Plan GI bleed/ Anemia secondary to blood loss Appreciate GI recommendations. Status post EGD with cautery of AVM. S/P colonoscopy, which revealed a colon mass. General surgery following. Status post biopsy. Pathology revealed well-differentiated adenocarcinoma of the colon. - follow CBC and transfuse as needed. - PPI. - iron per hematology. Colon cancer Discussed with general surgery. No evidence on imaging for metastatic disease. Cleared from Cardiac standpoint for surgery. S/p laparoscopic right hemicolectomy with primary anastomosis 7/10. - Oncology following and deciding if adjuvant chemo would be beneficial. - wound care and pain control. Add oxycodone, continue morphine for breakthrough. History of CVA Significant expressive aphasia and right sided paralysis. Unable to use anticoagulation secondary to GI bleed as above. Patient resides at a [facility] facility. - Will need GI and surgery clearance post op regarding when it will be acceptable to restart Coumadin. Coagulopathy Patient received vit K, FFP. - Coumadin on hold. DVT prophylaxis: CHANTALE Bass. Heparin subq as there is no further evidence of active bleeding Discharge Planning Awaiting clinical improvement Mike Gagnon DO May 04, 2017 15:45
[2017-05-05] VITALS (7 sets, daily range): BP systolic 111–131; BP diastolic 64–73; PULSE 79–86; RESP 17–20; TEMP 97.2–98.7; O2SAT 96–99
[2017-05-05] MEDS: metroNIDAZOLE 500 MG INJ 100 ML IV SCH ×2 (03:31→11:05)
[2017-05-05] MEDS: CHLORHEXIDINE GLUCONATE 2 % 1 PACK (2 CLOTHS) TOP SCH (03:33)
[2017-05-05] MEDS: ACETAMINOPHEN 1000 MG/100 ML VIAL IV SCH ×3 (05:07→17:29)
[2017-05-05] MEDS: DOCUSATE SODIUM 50 MG/SENNA 8.6 MG TAB PO SCH ×2 (08:08→20:24)
[2017-05-05] MEDS: IRON SUCROSE INJ 200 MG in SODIUM CHLORIDE 0.9% INJ 100 ML IV SCH (08:08)
[2017-05-05] MEDS: PANTOPRAZOLE SOD 40 MG DELAYED RELEASE TAB PO SCH ×2 (08:08→20:24)
[2017-05-05] MEDS: SODIUM CHLORIDE 0.9% FLUSH 10 ML FLUSH IV FLUSH SCH ×2 (08:11→20:24)
[2017-05-05 08:32] LABS: HEMATOCRIT 25.6 % (39.0-51.0); MEAN CELL VOLUME 79.4 FL (80.0-100.0); MEAN CORPUSCULAR HEMOGLOBIN 25.6 PG (27.0-34.0); MEAN CORPUSCULAR HGB CONC 32.2 % (32.0-36.0); PLATELET COUNT 452 TH/MM3 (150-450); RED BLOOD COUNT 3.23 MIL/MM3 (4.50-5.90); RED CELL DISTRIBUTION WIDTH 17.7 % (11.6-17.2); REVIEW FLAG FINAL; WHITE BLOOD COUNT 11.1 TH/MM3 (4.0-11.0)
[2017-05-05 08:38] LABS: BICARBONATE 24.4 MEQ/L (21.0-32.0); MAGNESIUM 1.7 MG/DL (1.5-2.5); POTASSIUM 3.7 MEQ/L (3.5-5.1)
--- NOTE | 2017-05-05 10:48 | HHI.PR ---
Subjective Subjective Notes Resting in bed Tolerating clears Not passing flatus Does not feel very hungry Objective Vitals/I&O Vital Signs Date Time Temp Pulse Resp B/P Pulse Ox O2 Delivery O2 Flow Rate FiO2 05/05/17 08:00 97.2 79 17 127/71 99 05/05/17 07:30 Nasal Cannula 2.00 Labs Laboratory Tests Test 05/05/17 06:15 White Blood Count 11.1 Red Blood Count 3.23 Hemoglobin 8.3 Hematocrit 25.6 Mean Corpuscular Volume 79.4 Mean Corpuscular Hemoglobin 25.6 Mean Corpuscular Hemoglobin 32.2 Concent Red Cell Distribution Width 17.7 Platelet Count 452 Mean Platelet Volume 6.9 Sodium Level 131 Potassium Level 3.7 Chloride Level 96 Carbon Dioxide Level 24.4 Anion Gap 11 Blood Urea Nitrogen 7 Creatinine 0.47 Estimat Glomerular Filtration 180 Rate Random Glucose 95 Calcium Level 8.6 Magnesium Level 1.7 Date/Time Procedure Status Source Growth 05/03/17 14:53 Urine Culture - Final Complete Urine Catheterized Urine NO GROWTH IN 48 HOURS. 05/03/17 14:53 Cancelled Urine Catheterized Urine Cardiovascular: Regular Lungs: Clear Abdomen: Other (non distended; incision c/d/i; lap sites with bandages no drainage ) Extremities: No edema A/P Assessment and Plan 66 year old male with anemia; hepatic flexure mass -POD2 lap RIGHT hemicolectomy -PT; OOB -IS -Continue clear liquids -Pain control -Restart Heparin Attending Statement patient seen at bedside tolerating liquids no acute issues f/u path Attestation The exam, history, and the medical decision-making described in the above note were completed with the assistance of the mid-level provider. I reviewed and agree with the findings presented. I attest that I had a [id number] encounter with the patient on the same day, and personally performed and documented my assessment and findings in the medical record. Ely Key May 05, 2017 10:48 Michel Mercedes MD May 10, 2017 20:32
--- NOTE | 2017-05-05 11:23 | PD.ONC.PN ---
Subjective Subjective Remarks Afebrile overnight. Patient resting in bed in nad. Still having pain at incision site. Improved with Oxycodone and morphine. Objective Data Date Time Temp Pulse Resp B/P Pulse Ox O2 Delivery O2 Flow Rate FiO2 05/05/17 08:00 97.2 79 17 127/71 99 05/05/17 07:30 98 Nasal Cannula 2.00 05/05/17 00:00 98.7 81 20 131/71 99 05/04/17 20:00 97.8 85 20 136/70 95 05/04/17 16:00 99.2 88 17 126/71 98 05/04/17 12:00 98.2 76 16 116/60 100 05/04/17 11:50 99 Nasal Cannula 3.00 05/05/17 05/05/17 05/05/17 07:00 15:00 23:00 Intake Total 540 ml Output Total 375 ml Balance 165 ml Result Diagram: 05/05/17 0615 05/05/17 0615 Laboratory Results Laboratory Tests Test 05/05/17 06:15 White Blood Count 11.1 TH/MM3 Red Blood Count 3.23 MIL/MM3 Hemoglobin 8.3 GM/DL Hematocrit 25.6 % Mean Corpuscular Volume 79.4 FL Mean Corpuscular Hemoglobin 25.6 PG Mean Corpuscular Hemoglobin 32.2 % Concent Red Cell Distribution Width 17.7 % Platelet Count 452 TH/MM3 Mean Platelet Volume 6.9 FL Sodium Level 131 MEQ/L Potassium Level 3.7 MEQ/L Chloride Level 96 MEQ/L Carbon Dioxide Level 24.4 MEQ/L Anion Gap 11 MEQ/L Blood Urea Nitrogen 7 MG/DL Creatinine 0.47 MG/DL Estimat Glomerular Filtration 180 ML/MIN Rate Random Glucose 95 MG/DL Calcium Level 8.6 MG/DL Magnesium Level 1.7 MG/DL Culture Results Microbiology Date/Time Procedure Status Source Growth 05/03/17 14:53 Urine Culture - Final Complete Urine Catheterized Urine NO GROWTH IN 48 HOURS. 05/03/17 14:53 Cancelled Urine Catheterized Urine Administered Medications Medications (Trade) Dose Ordered Sig/Titus Route PRN Reason Start Time Stop Time Status Last Admin Dose Admin Sodium Chloride (NS Flush) 2 ml BID IV FLUSH 04/21/17 21:00 05/05/17 08:11 Chlorhexidine Gluconate (Chlorhexidine 2% Cloth) Taper DAILY@04 TOP 04/22/17 04:00 04/18/18 03:59 04/23/17 03:56 Senna/Docusate Sodium (Kaleigh-Colace) 1 tab BID PO 04/21/17 21:00 05/05/17 08:08 Magnesium Hydroxide (Milk Of Magnesia Liq) 30 ml Q12H PRN PO MILD - MODERATE CONSTIPATION 04/21/17 19:45 05/02/17 18:16 Lactulose (Lactulose Liq) 30 ml DAILY PRN PO SEVERE CONSITIPATION 04/21/17 19:45 05/02/17 21:28 Heparin Sodium (Porcine) (Heparin Inj) 5,000 units Q12H SQ 04/29/17 10:00 05/02/17 21:35 Pantoprazole Sodium 40 mg 40 mg Q12HR PO 05/01/17 21:00 05/05/17 08:08 Metronidazole (Flagyl 500 Mg Inj) 100 ml @ 100 mls/hr Q8H IV 05/03/17 19:00 05/05/17 18:59 05/05/17 11:05 Acetaminophen 1000 mg 1,000 mg Q6H IV 05/03/17 18:00 05/05/17 05:07 Iron Sucrose/ Sodium Chloride (Venofer Inj/NS Inj) 110 ml @ 110 mls/hr DAILY IV 05/04/17 09:00 05/06/17 09:59 05/05/17 08:08 Oxycodone HCl (Roxicodone) 10 mg Q4H PRN PO PAIN SCALE 6 TO 10 05/04/17 15:45 05/05/17 08:11 Objective Remarks GENERAL: Middle aged male lying in bed in [facility]. he appears comfortable. SKIN: Warm and dry. HEAD: Normocephalic. EYES: No injection or drainage. NECK: Supple, trachea midline. CARDIOVASCULAR: Regular rate and rhythm RESPIRATORY: Breath sounds equal bilaterally. No accessory muscle use. GASTROINTESTINAL: Abdomen soft, TTP around incision sites, bandages c/d/i. nondistended. EXTREMITIES: No cyanosis NEUROLOGICAL: right sided hemiparesis. Assessment/Plan Problem List: (1) Anemia due to GI blood loss Status: Acute Plan: --Severe microcytic anemia likely due to the malignancy and blood loss from the GI tract. --iron studies show low serum iron, IV iron sucrose given --seen by Gastroenterology and he underwent an EGD and colonoscopy. --EGD showed AVMs which were ablated. colonoscopy, 05/15/2017 showed mass in the hepatic flexure. +diverticulosis in the sigmoid colon. +pedunculated polyp in the descending colon. He had hot snare polypectomy and complete removal of polyp. (2) Colon adenocarcinoma Status: Acute Plan: --Colon adenocarcinoma involving the hepatic flexure. --CT abdomen and pelvis--no evidence of metastatic disease. +focal mural thickening around the hepatic flexure.+enlarged prostate. --CT chest shows three subpleural nodules, less than 5mm --Final pathology results from the biopsy of the hepatic flexure mass confirmed adenocarcinoma. --plans for surgery early next week. --Further recommendation will be made after his colectomy. --If this is an early stage cancer, Stage I or II, he will not likely need any adjuvant chemotherapy, but if this is a high-risk tumor based on the pathological features and if lymph nodes are involved, then he may need adjuvant treatment. Assessment 66y/o male with colon adenocarcinoma admitted with anemia, warfarin-induced coagulopathy and weakness. -- history of left-sided stroke and has right-sided deficits and significant aphasia. Plan 1. await pathology 2. continue supportive care Attending Statement The exam, history, and the medical decision-making described in the above note were completed with the assistance of the mid-level provider. I reviewed and agree with the findings presented. I attest that I had a [id number] encounter with the patient on the same day, and personally performed and documented my assessment and findings in the medical record. Full Path report pending Diann Wood May 05, 2017 11:23 Rafael Skaggs MD May 06, 2017 00:07
--- NOTE | 2017-05-05 15:30 | HHI.PR ---
Subjective Remarks The patient indicated that his pain was better today. He seems to not want to work with physical therapy. He has been using his incentive spirometer. Discussed with nursing. Objective Vitals Vital Signs Date Time Temp Pulse Resp B/P Pulse Ox O2 Delivery O2 Flow Rate FiO2 05/05/17 12:00 97.7 80 17 115/66 97 05/05/17 08:00 97.2 79 17 127/71 99 05/05/17 07:30 98 Nasal Cannula 2.00 05/05/17 00:00 98.7 81 20 131/71 99 05/04/17 20:00 97.8 85 20 136/70 95 05/04/17 16:00 99.2 88 17 126/71 98 I/O 05/04/17 05/04/17 05/04/17 05/05/17 05/05/17 05/05/17 07:00 15:00 23:00 07:00 15:00 23:00 Intake Total 240 ml 1150 ml 240 ml 540 ml 440 ml Output Total 1050 ml 425 ml 375 ml 2050 ml Balance 240 ml 100 ml -185 ml 165 ml -1610 ml Intake Oral 240 ml 1150 ml 240 ml 240 ml 440 ml IV Total 0 ml 300 ml Output Urine Total 1050 ml 425 ml 375 ml 2050 ml # Bowel Movements 0 0 Result Diagram: 05/05/17 0615 05/05/17 0615 Imaging Last Impressions Chest CT 04/30/17 0000 Signed Impressions: Service Date/Time: Sunday, April 30, 2017 08:14 - CONCLUSION: 1. Redemonstration of moderate upper lobe predominant centrilobular emphysema with biapical and anterior left upper lobe scarring. 2. Redemonstration of at least three sub-5 mm solid subpleural nodules. Followup examination is recommended in 12 months (multiple solid nodules. <6mm, in high risk patient) per 2017 Fleischner guidelines. These nodules are below the threshold for PET exam. 3. Redemonstration of nonspecific 1.3 cm left AP window lymph node. Jhon Flores MD Abdomen/Pelvis CT 04/25/17 0000 Signed Impressions: Service Date/Time: Tuesday, April 25, 2017 13:19 - CONCLUSION: 1. No evidence for metastatic disease to the abdomen and pelvis. 2. Focal mural thickening and near the hepatic flexure with history of colonic mass. 3. Colonic diverticulosis without diverticulitis. Prostatic enlargement. Previous screw fixation right femur. Tutu Givens MD Head CT 04/22/17 0751 Signed Impressions: Service Date/Time: , April 22, 2017 04:42 - CONCLUSION: No acute findings. 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 Dagoberto English MD Objective Remarks GENERAL: Patient appearing older than stated age, expressive aphasia. SKIN: Pale. CARDIOVASCULAR: Normal rate and regular rhythm without murmurs, gallops, or rubs. RESPIRATORY: Good respiratory efforts. Breath sounds equal and clear to auscultation bilaterally. GASTROINTESTINAL: Abdomen soft, tender to palpation, non-distended. Normal active bowel sounds. Surgical site appears clean, noninfected. MUSCULOSKELETAL: Extremities without cyanosis, or edema. NEURO: Expressive aphasia, right sided paralysis. PSYCH: Calm. Procedures 04/22/17 EGD 04/23/13 colonoscopy Medications and IVs Current Medications Medications (Trade) Dose Ordered Sig/Titus Route Start Time Stop Time Status Last Admin (Mag-Al Plus Susp Liq) 15 ml Q6H PRN PO 04/21/17 21:15 (NS Flush) 2 ml UNSCH PRN IV FLUSH 04/21/17 19:45 (NS Flush) 2 ml BID IV FLUSH 04/21/17 21:00 05/05/17 08:11 Miscellaneous Information 1 Q361D XX 04/21/17 19:45 (Chlorhexidine 2% Cloth) Taper DAILY@04 TOP 04/22/17 04:00 04/18/18 03:59 04/23/17 03:56 (Chlorhexidine 2% Cloth) 3 pack UNSCH PRN TOP 04/21/17 19:45 (Kaleigh-Colace) 1 tab BID PO 04/21/17 21:00 05/05/17 08:08 (Milk Of Magnesia Liq) 30 ml Q12H PRN PO 04/21/17 19:45 05/02/17 18:16 (Senokot) 17.2 mg Q12H PRN PO 04/21/17 19:45 (Dulcolax Supp) 10 mg DAILY PRN RECTAL 04/21/17 19:45 (Lactulose Liq) 30 ml DAILY PRN PO 04/21/17 19:45 05/02/17 21:28 (Heparin Inj) 5,000 units Q12H SQ 04/29/17 10:00 05/02/17 21:35 Pantoprazole Sodium 40 mg 40 mg Q12HR PO 05/01/17 21:00 05/05/17 08:08 (Flagyl 500 Mg Inj) 100 ml @ 100 mls/hr Q8H IV 05/03/17 19:00 05/05/17 18:59 05/05/17 11:05 Acetaminophen 1000 mg 1,000 mg Q6H IV 05/03/17 18:00 05/05/17 12:13 (Venofer Inj/NS Inj) 110 ml @ 110 mls/hr DAILY IV 05/04/17 09:00 05/06/17 09:59 05/05/17 08:08 (Morphine Inj) 2 mg Q4H PRN IV 05/04/17 17:45 (Roxicodone) 5 mg Q4H PRN PO 05/04/17 15:45 (Roxicodone) 10 mg Q4H PRN PO 05/04/17 15:45 05/05/17 12:19 A/P Problem List: (1) Upper GI bleed ICD Code: K92.2 Status: Acute (2) Elevated INR ICD Code: R79.1 Status: Resolved (3) Anemia ICD Code: D64.9 Status: Acute (4) History of CVA with residual deficit ICD Code: I69.30 Status: Chronic Assessment and Plan GI bleed/ Anemia secondary to blood loss Appreciate GI recommendations. Status post EGD with cautery of AVM. S/P colonoscopy, which revealed a colon mass. General surgery following. Status post biopsy. Pathology revealed well-differentiated adenocarcinoma of the colon. - follow CBC and transfuse as needed. - PPI. - iron per hematology. Colon cancer Discussed with general surgery. No evidence on imaging for metastatic disease. Cleared from Cardiac standpoint for surgery. S/p laparoscopic right hemicolectomy with primary anastomosis 05/03. - Oncology following and deciding if adjuvant chemo would be beneficial. - wound care and pain control. Add oxycodone, continue morphine for breakthrough. - diet per surgery. - incentive spirometry. History of CVA Significant expressive aphasia and right sided paralysis. Unable to use anticoagulation secondary to GI bleed as above. Patient resides at a shelter facility. - Will need GI and surgery clearance post op regarding when it will be acceptable to restart Coumadin. - PT. Coagulopathy Patient received vit K, FFP. - Coumadin on hold. DVT prophylaxis: CHANTALE Bass. Heparin subq as there is no further evidence of active bleeding Discharge Planning Awaiting clinical improvement Mike Gagnon DO May 05, 2017 15:30
[2017-05-05] MEDS: MORPHINE SULFATE 4 MG/ML INJ IV PRN (17:30)
[2017-05-05] MEDS: HEPARIN SODIUM - SQ 10,000 UNITS/ML VIAL SQ SCH (20:24)
[2017-05-06] VITALS (8 sets, daily range): BP systolic 105–123; BP diastolic 66–80; PULSE 81–97; RESP 17–22; TEMP 97.4–98.5; O2SAT 93–97
[2017-05-06] MEDS: ACETAMINOPHEN 1000 MG/100 ML VIAL IV SCH ×4 (00:22→18:05)
[2017-05-06] MEDS: CHLORHEXIDINE GLUCONATE 2 % 1 PACK (2 CLOTHS) TOP SCH (03:49)
[2017-05-06 07:00] LABS: HEMATOCRIT 27.7 % (39.0-51.0); MEAN CORPUSCULAR HEMOGLOBIN 25.5 PG (27.0-34.0); MEAN CORPUSCULAR HGB CONC 31.9 % (32.0-36.0); PLATELET COUNT 458 TH/MM3 (150-450); RED BLOOD COUNT 3.47 MIL/MM3 (4.50-5.90); RED CELL DISTRIBUTION WIDTH 19.3 % (11.6-17.2); WHITE BLOOD COUNT 9.6 TH/MM3 (4.0-11.0)
[2017-05-06 07:14] LABS: REVIEW FLAG FINAL
[2017-05-06 07:28] LABS: BICARBONATE 26.7 MEQ/L (21.0-32.0); MAGNESIUM 1.6 MG/DL (1.5-2.5); POTASSIUM 3.4 MEQ/L (3.5-5.1)
[2017-05-06] MEDS: IRON SUCROSE INJ 200 MG in SODIUM CHLORIDE 0.9% INJ 100 ML IV SCH (08:12)
[2017-05-06] MEDS: PANTOPRAZOLE SOD 40 MG DELAYED RELEASE TAB PO SCH ×2 (08:12→21:31)
[2017-05-06] MEDS: HEPARIN SODIUM - SQ 10,000 UNITS/ML VIAL SQ SCH ×2 (08:15→21:31)
[2017-05-06] MEDS: MORPHINE SULFATE 4 MG/ML INJ IV PRN (08:16)
[2017-05-06] MEDS: SODIUM CHLORIDE 0.9% FLUSH 10 ML FLUSH IV FLUSH SCH ×2 (08:16→21:32)
[2017-05-06] MEDS: DOCUSATE SODIUM 50 MG/SENNA 8.6 MG TAB PO SCH ×2 (08:20→21:31)
--- NOTE | 2017-05-06 11:11 | HHI.PR ---
Subjective Subjective Notes Resting in bed Objective Vitals/I&O Vital Signs Date Time Temp Pulse Resp B/P Pulse Ox O2 Delivery O2 Flow Rate FiO2 05/06/17 08:00 97.4 82 17 113/67 97 05/05/17 17:23 Nasal Cannula 2.00 Labs Laboratory Tests Test 05/06/17 05:36 White Blood Count 9.6 Red Blood Count 3.47 Hemoglobin 8.8 Hematocrit 27.7 Mean Corpuscular Volume 80.0 Mean Corpuscular Hemoglobin 25.5 Mean Corpuscular Hemoglobin 31.9 Concent Red Cell Distribution Width 19.3 Platelet Count 458 Mean Platelet Volume 6.4 Sodium Level 133 Potassium Level 3.4 Chloride Level 98 Carbon Dioxide Level 26.7 Anion Gap 8 Blood Urea Nitrogen 6 Creatinine 0.44 Estimat Glomerular Filtration 194 Rate Random Glucose 93 Calcium Level 8.5 Magnesium Level 1.6 Date/Time Procedure Status Source Growth 05/03/17 14:53 Urine Culture - Final Complete Urine Catheterized Urine NO GROWTH IN 48 HOURS. 05/03/17 14:53 Cancelled Urine Catheterized Urine Cardiovascular: Regular Lungs: Clear Abdomen: Other (PAUL in place; abd soft non tender ) Extremities: No edema A/P Assessment and Plan 66 year old male with anemia; hepatic flexure mass -POD3 lap RIGHT hemicolectomy -PT; OOB -IS -Advance to full liquids + protein shakes -Pain control -SQ heparin -PT following Ely Key May 06, 2017 11:11
[2017-05-06] MEDS ORDERED: POTASSIUM CHLORIDE 25 MEQ EFFERVESCENT TAB PO ONE (11:30)
--- NOTE | 2017-05-06 11:32 | HHI.PR ---
Subjective Remarks The patient was resting comfortably in bed. He said his pain was a 7 out of 10. He said he has not been sleeping well. He has been drinking without too much difficulty. Discussed with nursing. Objective Vitals Vital Signs Date Time Temp Pulse Resp B/P Pulse Ox O2 Delivery O2 Flow Rate FiO2 05/06/17 08:00 97.4 82 17 113/67 97 05/06/17 04:00 98.5 86 20 116/66 97 05/06/17 01:22 18 05/06/17 01:22 18 05/06/17 00:00 98.3 89 18 120/75 95 05/05/17 20:00 98.7 86 20 117/73 97 05/05/17 17:23 96 Nasal Cannula 2.00 05/05/17 16:00 97.4 82 17 111/64 96 05/05/17 12:00 97.7 80 17 115/66 97 I/O 05/05/17 05/05/17 05/05/17 05/06/17 05/06/17 05/06/17 07:00 15:00 23:00 07:00 15:00 23:00 Intake Total 540 ml 650 ml 240 ml 120 ml Output Total 375 ml 2050 ml 650 ml 600 ml Balance 165 ml -1400 ml -410 ml -480 ml Intake Oral 240 ml 440 ml 240 ml 120 ml IV Total 300 ml 210 ml Output Urine Total 375 ml 2050 ml 650 ml 600 ml # Bowel Movements 0 0 0 Result Diagram: 05/06/17 0536 05/06/17 0536 Imaging Last Impressions Chest CT 04/30/17 0000 Signed Impressions: Service Date/Time: Sunday, April 30, 2017 08:14 - CONCLUSION: 1. Redemonstration of moderate upper lobe predominant centrilobular emphysema with biapical and anterior left upper lobe scarring. 2. Redemonstration of at least three sub-5 mm solid subpleural nodules. Followup examination is recommended in 12 months (multiple solid nodules. <6mm, in high risk patient) per 2017 Fleischner guidelines. These nodules are below the threshold for PET exam. 3. Redemonstration of nonspecific 1.3 cm left AP window lymph node. Jhon Flores MD Abdomen/Pelvis CT 04/25/17 0000 Signed Impressions: Service Date/Time: Tuesday, April 25, 2017 13:19 - CONCLUSION: 1. No evidence for metastatic disease to the abdomen and pelvis. 2. Focal mural thickening and near the hepatic flexure with history of colonic mass. 3. Colonic diverticulosis without diverticulitis. Prostatic enlargement. Previous screw fixation right femur. Tutu Givens MD Head CT 04/22/17 0751 Signed Impressions: Service Date/Time: March 04:42 - CONCLUSION: No acute findings. 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 Dagoberto English MD Objective Remarks GENERAL: Patient appearing older than stated age, expressive aphasia. SKIN: Pale. CARDIOVASCULAR: Normal rate and regular rhythm without murmurs, gallops, or rubs. RESPIRATORY: Good respiratory efforts. Breath sounds equal and clear to auscultation bilaterally. GASTROINTESTINAL: Abdomen soft, tender to palpation, non-distended. Normal active bowel sounds. Surgical site appears clean, noninfected. MUSCULOSKELETAL: Extremities without cyanosis, or edema. NEURO: Expressive aphasia, right sided paralysis. PSYCH: Calm. Procedures 04/22/17 EGD 04/23/13 colonoscopy Medications and IVs Current Medications Medications (Trade) Dose Ordered Sig/Titus Route Start Time Stop Time Status Last Admin (Mag-Al Plus Susp Liq) 15 ml Q6H PRN PO 04/21/17 21:15 (NS Flush) 2 ml UNSCH PRN IV FLUSH 04/21/17 19:45 (NS Flush) 2 ml BID IV FLUSH 04/21/17 21:00 05/06/17 08:16 Miscellaneous Information 1 Q361D XX 04/21/17 19:45 (Chlorhexidine 2% Cloth) Taper DAILY@04 TOP 04/22/17 04:00 04/18/18 03:59 04/23/17 03:56 (Chlorhexidine 2% Cloth) 3 pack UNSCH PRN TOP 04/21/17 19:45 ([place]-Colace) 1 tab BID PO 04/21/17 21:00 05/06/17 08:20 (Milk Of Magnesia Liq) 30 ml Q12H PRN PO 04/21/17 19:45 05/02/17 18:16 (Senokot) 17.2 mg Q12H PRN PO 04/21/17 19:45 (Dulcolax Supp) 10 mg DAILY PRN RECTAL 04/21/17 19:45 (Lactulose Liq) 30 ml DAILY PRN PO 04/21/17 19:45 05/02/17 21:28 (Heparin Inj) 5,000 units Q12H SQ 04/29/17 10:00 05/06/17 08:15 (Protonix) 40 mg Q12HR PO 05/01/17 21:00 05/06/17 08:12 (Ofirmev Inj) 1,000 mg Q6H IV 05/03/17 18:00 05/06/17 10:54 (Morphine Inj) 2 mg Q4H PRN IV 05/04/17 17:45 05/06/17 08:16 (Roxicodone) 5 mg Q4H PRN PO 05/04/17 15:45 (Roxicodone) 10 mg Q4H PRN PO 05/04/17 15:45 05/06/17 05:33 A/P Problem List: (1) Upper GI bleed ICD Code: K92.2 Status: Acute (2) Elevated INR ICD Code: R79.1 Status: Resolved (3) Anemia ICD Code: D64.9 Status: Acute (4) History of CVA with residual deficit ICD Code: I69.30 Status: Chronic Assessment and Plan GI bleed/ Anemia secondary to blood loss Appreciate GI recommendations. Status post EGD with cautery of AVM. S/P colonoscopy, which revealed a colon mass. General surgery following. Status post biopsy. Pathology revealed well-differentiated adenocarcinoma of the colon. - follow CBC and transfuse as needed. - PPI. - iron per hematology. Colon cancer Discussed with general surgery. No evidence on imaging for metastatic disease. Cleared from Cardiac standpoint for surgery. S/p laparoscopic right hemicolectomy with primary anastomosis 05/03. - Oncology following and deciding if adjuvant chemo would be beneficial. - wound care and pain control. Add oxycodone, continue morphine for breakthrough. - diet per surgery. Currently full liquids. - incentive spirometry. History of CVA Significant expressive aphasia and right sided paralysis. Unable to use anticoagulation secondary to GI bleed as above. Patient resides at a senior living facility. - Will need GI and surgery clearance post op regarding when it will be acceptable to restart Coumadin. - PT. Add OT. Coagulopathy Patient received vit K, FFP. - Coumadin on hold. Hypokalemia Secondary to decreased by mouth intake. - Replete and monitor. DVT prophylaxis: Kali, CHANTALE pat. Heparin subq as there is no further evidence of active bleeding Discharge Planning Awaiting surgical clearance. Mike Gagnon DO May 06, 2017 11:32
[2017-05-06] MEDS ORDERED: MAGNESIUM SULFATE 1 GM PREMIX 100 ML IV ONE (12:00)
--- NOTE | 2017-05-06 12:54 | PD.ONC.PN ---
Subjective Subjective Remarks Afebrile overnight. Patient resting in bed. Still with abdominal pain. Reviewed pathology results with patient. Objective Data Date Time Temp Pulse Resp B/P Pulse Ox O2 Delivery O2 Flow Rate FiO2 05/06/17 12:22 97 Nasal Cannula 1.00 05/06/17 12:00 97.8 81 17 105/69 97 05/06/17 12:00 97.8 81 17 105/69 97 05/06/17 08:00 97.4 82 17 113/67 97 05/06/17 04:00 98.5 86 20 116/66 97 05/06/17 01:22 18 05/06/17 01:22 18 05/06/17 00:00 98.3 89 18 120/75 95 05/05/17 20:00 98.7 86 20 117/73 97 05/05/17 17:23 96 Nasal Cannula 2.00 05/05/17 16:00 97.4 82 17 111/64 96 05/06/17 05/06/17 05/06/17 07:00 15:00 23:00 Intake Total 120 ml Output Total 600 ml Balance -480 ml Result Diagram: 05/06/17 0536 05/06/17 0536 Laboratory Results Laboratory Tests Test 05/06/17 05:36 White Blood Count 9.6 TH/MM3 Red Blood Count 3.47 MIL/MM3 Hemoglobin 8.8 GM/DL Hematocrit 27.7 % Mean Corpuscular Volume 80.0 FL Mean Corpuscular Hemoglobin 25.5 PG Mean Corpuscular Hemoglobin 31.9 % Concent Red Cell Distribution Width 19.3 % Platelet Count 458 TH/MM3 Mean Platelet Volume 6.4 FL Sodium Level 133 MEQ/L Potassium Level 3.4 MEQ/L Chloride Level 98 MEQ/L Carbon Dioxide Level 26.7 MEQ/L Anion Gap 8 MEQ/L Blood Urea Nitrogen 6 MG/DL Creatinine 0.44 MG/DL Estimat Glomerular Filtration 194 ML/MIN Rate Random Glucose 93 MG/DL Calcium Level 8.5 MG/DL Magnesium Level 1.6 MG/DL Culture Results Microbiology Date/Time Procedure Status Source Growth 05/03/17 14:53 Urine Culture - Final Complete Urine Catheterized Urine NO GROWTH IN 48 HOURS. 05/03/17 14:53 Cancelled Urine Catheterized Urine Administered Medications Medications (Trade) Dose Ordered Sig/Titus Route PRN Reason Start Time Stop Time Status Last Admin Dose Admin Sodium Chloride (NS Flush) 2 ml BID IV FLUSH 04/21/17 21:00 05/06/17 08:16 Chlorhexidine Gluconate (Chlorhexidine 2% Cloth) Taper DAILY@04 TOP 04/22/17 04:00 04/18/18 03:59 04/23/17 03:56 Senna/Docusate Sodium ([place]-Colace) 1 tab BID PO 04/21/17 21:00 05/06/17 08:20 Magnesium Hydroxide (Milk Of Magnesia Liq) 30 ml Q12H PRN PO MILD - MODERATE CONSTIPATION 04/21/17 19:45 05/02/17 18:16 Lactulose (Lactulose Liq) 30 ml DAILY PRN PO SEVERE CONSITIPATION 04/21/17 19:45 05/02/17 21:28 Heparin Sodium (Porcine) (Heparin Inj) 5,000 units Q12H SQ 04/29/17 10:00 05/06/17 08:15 Pantoprazole Sodium (Protonix) 40 mg Q12HR PO 05/01/17 21:00 05/06/17 08:12 Acetaminophen (Ofirmev Inj) 1,000 mg Q6H IV 05/03/17 18:00 05/06/17 10:54 Morphine Sulfate (Morphine Inj) 2 mg Q4H PRN IV Breakthrough pain 05/04/17 17:45 05/06/17 08:16 Oxycodone HCl (Roxicodone) 10 mg Q4H PRN PO PAIN SCALE 6 TO 10 05/04/17 15:45 05/06/17 05:33 Objective Remarks GENERAL: Middle aged male supine in bed, watching TV SKIN: Warm and dry. HEAD: Normocephalic. EYES: No injection or drainage. NECK: Supple, trachea midline. CARDIOVASCULAR: Regular rate and rhythm RESPIRATORY: Breath sounds equal bilaterally. No accessory muscle use. GASTROINTESTINAL: Abdomen soft, midline incision with bandage in place. tender around bandage, no erythema or drainage. EXTREMITIES: No cyanosis NEUROLOGICAL: right sided paresis. Assessment/Plan Problem List: (1) Colon adenocarcinoma Status: Acute Plan: --Colon adenocarcinoma involving the hepatic flexure. --CT abdomen and pelvis--no evidence of metastatic disease. +focal mural thickening around the hepatic flexure.+enlarged prostate. --CT chest shows three subpleural nodules, less than 5mm --Final pathology results from the biopsy of the hepatic flexure mass confirmed adenocarcinoma. --+0/19 LN, negative margins from colon resection pathology (2) Anemia due to GI blood loss Status: Acute Plan: --Severe microcytic anemia likely due to the malignancy and blood loss from the GI tract. --iron studies show low serum iron, IV iron sucrose given --seen by Gastroenterology and he underwent an EGD and colonoscopy. --EGD showed AVMs which were ablated. colonoscopy, 05/15/2017 showed mass in the hepatic flexure. +diverticulosis in the sigmoid colon. +pedunculated polyp in the descending colon. He had hot snare polypectomy and complete removal of polyp. Assessment 66y/o male with colon adenocarcinoma admitted with anemia, warfarin-induced coagulopathy and weakness. -- history of left-sided stroke and has right-sided deficits and significant aphasia. Plan 1. fs faxed to new patient referrals for follow up in 2 weeks 2. oncology clear for discharge 3. will give additional iron sucrose 200mg IV x 3 bags. Attending Statement The exam, history, and the medical decision-making described in the above note were completed with the assistance of the mid-level provider. I reviewed and agree with the findings presented. I attest that I had a [id number] encounter with the patient on the same day, and personally performed and documented my assessment and findings in the medical record. PATHOLOGY REPORT REVIEWED T3NO STAGE IIA ASCENDING COLON CANCER, MODERATELY DIFFERENTIATED CANCER WITH LYMPHOVASCULAR INVOLVEMENT. 0/[address] MSI/MMR STUDIES ORDERED REMAINS ANEMIC WITH IRON DEFICIENCY ADDITIONAL IRON SUCROSE RX D/W PATIENT D/W Diann Hirsch May 06, 2017 12:54 Rafael Skaggs MD May 06, 2017 23:50
[2017-05-07] VITALS (7 sets, daily range): BP systolic 107–123; BP diastolic 66–79; PULSE 89–103; RESP 17–20; TEMP 97.4–99.1; O2SAT 90–94
[2017-05-07] MEDS: CHLORHEXIDINE GLUCONATE 2 % 1 PACK (2 CLOTHS) TOP SCH (04:00)
[2017-05-07] MEDS: ACETAMINOPHEN 1000 MG/100 ML VIAL IV SCH ×2 (05:26)
[2017-05-07] MEDS: PANTOPRAZOLE SOD 40 MG DELAYED RELEASE TAB PO SCH ×2 (10:01→20:31)
[2017-05-07] MEDS: DOCUSATE SODIUM 50 MG/SENNA 8.6 MG TAB PO SCH ×2 (10:01→20:31)
[2017-05-07] MEDS: HEPARIN SODIUM - SQ 10,000 UNITS/ML VIAL SQ SCH ×2 (10:01→20:31)
[2017-05-07] MEDS: SODIUM CHLORIDE 0.9% FLUSH 10 ML FLUSH IV FLUSH SCH ×2 (10:02→20:36)
[2017-05-07] MEDS: IRON SUCROSE INJ 200 MG in SODIUM CHLORIDE 0.9% INJ 100 ML IV SCH (10:02)
--- NOTE | 2017-05-07 11:14 | HHI.PR ---
Subjective Remarks The patient was complaining of hiccups. He said his pain was 7 out of 10 in severity. He has not been eating much. He says he has not been having bowel movements. Discussed with nursing. Objective Vitals Vital Signs Date Time Temp Pulse Resp B/P Pulse Ox O2 Delivery O2 Flow Rate FiO2 05/07/17 08:47 93 21 05/07/17 08:00 97.4 95 17 122/79 94 05/07/17 06:00 18 05/07/17 00:30 18 05/07/17 00:00 97.7 97 20 120/76 93 05/06/17 20:00 98.4 97 22 123/80 93 05/06/17 18:10 93 21 05/06/17 16:00 97.7 89 17 121/75 93 05/06/17 12:22 97 Nasal Cannula 1.00 05/06/17 12:00 97.8 81 17 105/69 97 05/06/17 12:00 97.8 81 17 105/69 97 I/O 05/06/17 05/06/17 05/06/17 05/07/17 05/07/17 05/07/17 07:00 15:00 23:00 07:00 15:00 23:00 Intake Total 120 ml 240 ml 120 ml 120 ml Output Total 600 ml 350 ml 250 ml 200 ml Balance -480 ml -110 ml -130 ml -80 ml Intake Oral 120 ml 240 ml 120 ml 120 ml Output Urine Total 600 ml 350 ml 250 ml 200 ml # Bowel Movements 0 0 0 0 Result Diagram: 05/06/17 0536 05/06/17 0536 Imaging Last Impressions Chest CT 04/30/17 0000 Signed Impressions: Service Date/Time: Sunday, April 30, 2017 08:14 - CONCLUSION: 1. Redemonstration of moderate upper lobe predominant centrilobular emphysema with biapical and anterior left upper lobe scarring. 2. Redemonstration of at least three sub-5 mm solid subpleural nodules. Followup examination is recommended in 12 months (multiple solid nodules. <6mm, in high risk patient) per 2017 Fleischner guidelines. These nodules are below the threshold for PET exam. 3. Redemonstration of nonspecific 1.3 cm left AP window lymph node. Jhon Flores MD Abdomen/Pelvis CT 04/25/17 0000 Signed Impressions: Service Date/Time: Tuesday, April 25, 2017 13:19 - CONCLUSION: 1. No evidence for metastatic disease to the abdomen and pelvis. 2. Focal mural thickening and near the hepatic flexure with history of colonic mass. 3. Colonic diverticulosis without diverticulitis. Prostatic enlargement. Previous screw fixation right femur. Tutu Givens MD Head CT 04/22/17 0751 Signed Impressions: Service Date/Time: March 04:42 - CONCLUSION: No acute findings. 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 Dagoberto English MD Objective Remarks GENERAL: Patient appearing older than stated age, expressive aphasia. Hiccuping. SKIN: Pale. CARDIOVASCULAR: Normal rate and regular rhythm without murmurs, gallops, or rubs. RESPIRATORY: Good respiratory efforts. Breath sounds equal and clear to auscultation bilaterally. GASTROINTESTINAL: Abdomen soft, nontender to palpation, non-distended. Normal active bowel sounds. Surgical site appears clean, noninfected. MUSCULOSKELETAL: Extremities without cyanosis, or edema. NEURO: Expressive aphasia, right sided paralysis. PSYCH: Calm. Procedures 04/22/17 EGD 04/23/13 colonoscopy Medications and IVs Current Medications Medications (Trade) Dose Ordered Sig/Titus Route Start Time Stop Time Status Last Admin (Mag-Al Plus Susp Liq) 15 ml Q6H PRN PO 04/21/17 21:15 (NS Flush) 2 ml UNSCH PRN IV FLUSH 04/21/17 19:45 (NS Flush) 2 ml BID IV FLUSH 04/21/17 21:00 05/07/17 10:02 Miscellaneous Information 1 Q361D XX 04/21/17 19:45 (Chlorhexidine 2% Cloth) Taper DAILY@04 TOP 04/22/17 04:00 04/18/18 03:59 04/23/17 03:56 (Chlorhexidine 2% Cloth) 3 pack UNSCH PRN TOP 04/21/17 19:45 ([place]-Colace) 1 tab BID PO 04/21/17 21:00 05/07/17 10:01 (Milk Of Magnesia Liq) 30 ml Q12H PRN PO 04/21/17 19:45 05/02/17 18:16 (Senokot) 17.2 mg Q12H PRN PO 04/21/17 19:45 (Dulcolax Supp) 10 mg DAILY PRN RECTAL 04/21/17 19:45 (Lactulose Liq) 30 ml DAILY PRN PO 04/21/17 19:45 05/02/17 21:28 (Heparin Inj) 5,000 units Q12H SQ 04/29/17 10:00 05/07/17 10:01 (Protonix) 40 mg Q12HR PO 05/01/17 21:00 05/07/17 10:01 (Morphine Inj) 2 mg Q4H PRN IV 05/04/17 17:45 05/06/17 08:16 (Roxicodone) 5 mg Q4H PRN PO 05/04/17 15:45 Oxycodone HCl 10 mg 10 mg Q4H PRN PO 05/04/17 15:45 05/07/17 05:25 (Venofer Inj/NS Inj) 110 ml @ 110 mls/hr DAILY IV 05/07/17 09:00 05/09/17 09:59 05/07/17 10:02 A/P Problem List: (1) Upper GI bleed ICD Code: K92.2 Status: Acute (2) Elevated INR ICD Code: R79.1 Status: Resolved (3) Anemia ICD Code: D64.9 Status: Acute (4) History of CVA with residual deficit ICD Code: I69.30 Status: Chronic Assessment and Plan GI bleed/ Anemia secondary to blood loss Appreciate GI recommendations. Status post EGD with cautery of AVM. S/P colonoscopy, which revealed a colon mass. General surgery following. Status post biopsy. Pathology revealed well-differentiated adenocarcinoma of the colon. - follow CBC and transfuse as needed. - PPI. - iron per hematology. Colon cancer Discussed with general surgery. No evidence on imaging for metastatic disease. Cleared from Cardiac standpoint for surgery. S/p laparoscopic right hemicolectomy with primary anastomosis 05/03. Oncology consult appreciated. - wound care and pain control. Add oxycodone, continue morphine for breakthrough. - diet per surgery. Currently full liquids. - incentive spirometry. History of CVA Significant expressive aphasia and right sided paralysis. Unable to use anticoagulation secondary to GI bleed as above. [facility]. - Will need GI and surgery clearance post op regarding when it will be acceptable to restart Coumadin. - PT. Add OT. Coagulopathy Patient received vit K, FFP. - Coumadin on hold. Resume when cleared by surgery. Hypokalemia Secondary to decreased by mouth intake. - Replete and monitor. Hiccups Likely s/t recent abdominal surgery. - trial of chlorpromazine. - Continue PPI. DVT prophylaxis: CHANTALE Bass. Heparin subq as there is no further evidence of active bleeding Discharge Planning Awaiting surgical clearance. Will need SNF Mike Gagnon DO May 07, 2017 11:14
[2017-05-07] MEDS ORDERED: chlorproMAZINE HCL 25 MG TAB PO ONE (11:15)
--- NOTE | 2017-05-07 17:34 | HHI.PR ---
Subjective Subjective Notes Resting in bed No complaints Objective Vitals/I&O Vital Signs Date Time Temp Pulse Resp B/P Pulse Ox O2 Delivery O2 Flow Rate FiO2 05/07/17 12:00 99.1 89 17 112/66 92 05/07/17 08:47 21 05/06/17 12:22 Nasal Cannula 1.00 Labs Date/Time Procedure Status Source Growth 05/03/17 14:53 Urine Culture - Final Complete Urine Catheterized Urine NO GROWTH IN 48 HOURS. 05/03/17 14:53 Cancelled Urine Catheterized Urine Cardiovascular: Regular Lungs: Clear Abdomen: Other (PAUL in place ) Extremities: No edema A/P Assessment and Plan 66 year old male with anemia; hepatic flexure mass -POD4 lap RIGHT hemicolectomy -PT; OOB -IS -Advance to full liquids + protein shakes -Bowel regimen -Pain control -SQ heparin -PT following Ely Key May 07, 2017 17:34
[2017-05-07] MEDS ORDERED: DOCUSATE SODIUM 50 MG/SENNA 8.6 MG TAB PO ONE (17:45)
[2017-05-07] MEDS ORDERED: MAGNESIUM HYDROXIDE SUSP 30 ML CUP PO ONE (17:45)
[2017-05-07 19:33] LABS: BLOOD, URINE NEG (NEG); COMMENT (UR) CULT NOT INDICATED; CULTURE IF INDICATED CULT NOT INDICATED; GLUCOSE,URINE NEG (NEG); GRANULAR CAST, URINE 4 /lpf; HYALINE CAST, URINE 1 /lpf (RARE); KETONE, URINE NEG (NEG); MUCUS URINE MOD /lpf (OCC); NITRITE,URINE NEG (NEG); URINE COLOR YELLOW (YELLW/STRAW)
[2017-05-07] MEDS: DEXT 5%-NACL 0.9% 1000 ML INJ 1,000 ML IV SCH (20:30)
[2017-05-08] VITALS: BP 118/70; PULSE 100; RESP 21; TEMP 98.3; O2SAT 93
[2017-05-08 04:00] VITALS: BP 112/47; PULSE 101; RESP 21; TEMP 97.9; O2SAT 97
[2017-05-08] MEDS: CHLORHEXIDINE GLUCONATE 2 % 1 PACK (2 CLOTHS) TOP SCH (04:00)
[2017-05-08 07:00] LABS: ALT (GPT) 16 U/L (12-78); ANION GAP 9 MEQ/L (5-15); AST (GOT) 19 U/L (15-37); BLOOD UREA NITROGEN 10 MG/DL (7-18); CHLORIDE 96 MEQ/L (98-107); GLOMERULAR FILTRATION RATE 230 ML/MIN (>89); MAGNESIUM 1.6 MG/DL (1.5-2.5); POTASSIUM 3.2 MEQ/L (3.5-5.1); SODIUM (NA) 131 MEQ/L (136-145)
[2017-05-08 07:02] LABS: ALKALINE PHOSPHATASE 70 U/L (45-117); TOTAL BILIRUBIN ADULT 0.3 MG/DL (0.2-1.0)
[2017-05-08 08:00] VITALS: BP 132/77; PULSE 101; RESP 20; TEMP 98.4; O2SAT 95
[2017-05-08] MEDS: DOCUSATE SODIUM 50 MG/SENNA 8.6 MG TAB PO SCH ×2 (09:00→20:46)
[2017-05-08] MEDS: SODIUM CHLORIDE 0.9% FLUSH 10 ML FLUSH IV FLUSH SCH ×2 (09:00→20:47)
[2017-05-08] MEDS: DEXT 5%-NACL 0.9% 1000 ML INJ 1,000 ML IV SCH ×2 (09:46→16:38)
[2017-05-08] MEDS: PANTOPRAZOLE SOD 40 MG DELAYED RELEASE TAB PO SCH ×2 (09:47→20:46)
[2017-05-08] MEDS: IRON SUCROSE INJ 200 MG in SODIUM CHLORIDE 0.9% INJ 100 ML IV SCH (09:48)
[2017-05-08 12:00] VITALS: BP 135/75; PULSE 103; RESP 20; TEMP 99; O2SAT 95
--- NOTE | 2017-05-08 13:00 | HHI.PR ---
Subjective Subjective Notes Patient has diarrhea Objective Vitals/I&O Vital Signs Date Time Temp Pulse Resp B/P Pulse Ox O2 Delivery O2 Flow Rate FiO2 05/08/17 12:00 99.0 103 20 135/75 95 05/07/17 18:29 21 05/06/17 12:22 Nasal Cannula 1.00 Labs Laboratory Tests Test 05/07/17 05/08/17 18:45 04:58 Urine Color YELLOW Urine Turbidity CLEAR Urine pH 6.0 Urine Specific [place] 1.047 Urine Protein TRACE Urine Glucose (UA) NEG Urine Ketones NEG Urine Occult Blood NEG Urine Nitrite NEG Urine Bilirubin NEG Urine Urobilinogen LESS THAN 2.0 Urine Leukocyte Esterase NEG Urine WBC 1 Urine Hyaline Casts 1 Urine Granular Casts 4 Urine Mucus MOD Microscopic Urinalysis Comment CULT NOT INDICATED Sodium Level 131 Potassium Level 3.2 Chloride Level 96 Carbon Dioxide Level 26.0 Anion Gap 9 Blood Urea Nitrogen 10 Creatinine 0.38 Estimat Glomerular Filtration 230 Rate Random Glucose 124 Calcium Level 8.0 Magnesium Level 1.6 Total Bilirubin 0.3 Aspartate Amino Transf 19 (AST/SGOT) Alanine Aminotransferase 16 (ALT/SGPT) Alkaline Phosphatase 70 Total Protein 5.6 Albumin 2.2 Date/Time Procedure Status Source Growth 05/03/17 14:53 Urine Culture - Final Complete Urine Catheterized Urine NO GROWTH IN 48 HOURS. 05/03/17 14:53 Cancelled Urine Catheterized Urine Lungs: Clear Abdomen: Non-distended Narrative Exam PAUL dressing with minimal drainage A/P Assessment and Plan Assessment and Plan 66 year old male with anemia; hepatic flexure mass, now with loose stools. -POD5 lap RIGHT hemicolectomy -PT; OOB -IS -Advance to regular diet + protein shakes -Pain control -SQ heparin -PT following -Stool sent for C. Diff Mike Magallon MD May 08, 2017 13:00
[2017-05-08 13:35] LABS: C. DIFF EPI 027 PRESUMPTIVE NEGATIVE (NEGATIVE); C. DIFF TOXIN PCR NEGATIVE (NEGATIVE)
[2017-05-08] MEDS: HEPARIN SODIUM - SQ 10,000 UNITS/ML VIAL SQ SCH ×2 (13:53→20:46)
[2017-05-08] MEDS: chlorproMAZINE HCL 25 MG TAB PO PRN ×2 (13:53→23:43)
--- NOTE | 2017-05-08 14:38 | HHI.PR ---
Subjective Remarks The patient still had hiccups. He complained of diarrhea. His pain level is rated at an 8 out of 10 in the stomach. He says he hasn't been eating. He seems to not have an appetite. Discussed with nursing. Objective Vitals Vital Signs Date Time Temp Pulse Resp B/P Pulse Ox O2 Delivery O2 Flow Rate FiO2 05/08/17 12:00 99.0 103 20 135/75 95 05/08/17 08:00 98.4 101 20 132/77 95 05/08/17 04:00 97.9 101 21 112/47 97 05/08/17 00:00 98.3 100 21 118/70 93 05/07/17 20:00 98.9 103 20 107/71 90 05/07/17 18:29 93 21 05/07/17 16:00 98.8 95 17 123/75 93 I/O 05/07/17 05/07/17 05/07/17 05/08/17 05/08/17 05/08/17 07:00 15:00 23:00 07:00 15:00 23:00 Intake Total 120 ml 120 ml 606 ml 831 ml 760 ml Output Total 200 ml 150 ml 425 ml 50 ml 400 ml Balance -80 ml -30 ml 181 ml 781 ml 360 ml Intake Oral 120 ml 120 ml 240 ml 240 ml 760 ml IV Total 366 ml 591 ml Output Urine Total 200 ml 150 ml 425 ml 50 ml 400 ml # Bowel Movements 0 0 20 Result Diagram: 05/06/17 0536 05/08/17 0458 Imaging Last Impressions Chest CT 04/30/17 0000 Signed Impressions: Service Date/Time: Sunday, April 30, 2017 08:14 - CONCLUSION: 1. Redemonstration of moderate upper lobe predominant centrilobular emphysema with biapical and anterior left upper lobe scarring. 2. Redemonstration of at least three sub-5 mm solid subpleural nodules. Followup examination is recommended in 12 months (multiple solid nodules. <6mm, in high risk patient) per 2017 Fleischner guidelines. These nodules are below the threshold for PET exam. 3. Redemonstration of nonspecific 1.3 cm left AP window lymph node. Jhon Flores MD Abdomen/Pelvis CT 04/25/17 0000 Signed Impressions: Service Date/Time: Tuesday, April 25, 2017 13:19 - CONCLUSION: 1. No evidence for metastatic disease to the abdomen and pelvis. 2. Focal mural thickening and near the hepatic flexure with history of colonic mass. 3. Colonic diverticulosis without diverticulitis. Prostatic enlargement. Previous screw fixation right femur. Tutu Givens MD Head CT 04/22/17 0751 Signed Impressions: Service Date/Time: March 04:42 - CONCLUSION: No acute findings. 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 Dagoberto English MD Objective Remarks GENERAL: Patient appearing older than stated age, expressive aphasia. Hiccuping. SKIN: Pale. CARDIOVASCULAR: Normal rate and regular rhythm without murmurs, gallops, or rubs. RESPIRATORY: Good respiratory efforts. Breath sounds equal and clear to auscultation bilaterally. GASTROINTESTINAL: Abdomen soft, nontender to palpation, non-distended. Normal active bowel sounds. Surgical site appears clean, noninfected. MUSCULOSKELETAL: Extremities without cyanosis, or edema. NEURO: Expressive aphasia, right sided paralysis. PSYCH: Calm. Procedures 04/22/17 EGD 04/23/13 colonoscopy Medications and IVs Current Medications Medications (Trade) Dose Ordered Sig/Titus Route Start Time Stop Time Status Last Admin (Mag-Al Plus Susp Liq) 15 ml Q6H PRN PO 04/21/17 21:15 (NS Flush) 2 ml UNSCH PRN IV FLUSH 04/21/17 19:45 (NS Flush) 2 ml BID IV FLUSH 04/21/17 21:00 05/07/17 10:02 Miscellaneous Information 1 Q361D XX 04/21/17 19:45 (Chlorhexidine 2% Cloth) Taper DAILY@04 TOP 04/22/17 04:00 04/18/18 03:59 04/23/17 03:56 (Chlorhexidine 2% Cloth) 3 pack UNSCH PRN TOP 04/21/17 19:45 ([place]-Colace) 1 tab BID PO 04/21/17 21:00 05/07/17 20:31 (Milk Of Magnesia Liq) 30 ml Q12H PRN PO 04/21/17 19:45 05/02/17 18:16 (Senokot) 17.2 mg Q12H PRN PO 04/21/17 19:45 (Dulcolax Supp) 10 mg DAILY PRN RECTAL 04/21/17 19:45 (Lactulose Liq) 30 ml DAILY PRN PO 04/21/17 19:45 05/02/17 21:28 (Heparin Inj) 5,000 units Q12H SQ 04/29/17 10:00 05/08/17 13:53 (Protonix) 40 mg Q12HR PO 05/01/17 21:00 05/08/17 09:47 (Morphine Inj) 2 mg Q4H PRN IV 05/04/17 17:45 05/06/17 08:16 (Roxicodone) 5 mg Q4H PRN PO 05/04/17 15:45 Oxycodone HCl 10 mg 10 mg Q4H PRN PO 05/04/17 15:45 05/08/17 03:18 (Venofer Inj/NS Inj) 110 ml @ 110 mls/hr DAILY IV 05/07/17 09:00 05/09/17 09:59 05/08/17 09:48 Chlorpromazine 25 mg 25 mg Q8H PRN PO 05/07/17 19:00 05/08/17 13:53 Dextrose/Sodium Chloride 1,000 ml @ 75 mls/hr [id number] IV 05/07/17 18:45 05/08/17 21:24 05/08/17 09:46 (KCl 20 Meq Premix Inj) 100 ml @ 50 mls/hr Q2H IV 05/08/17 14:30 05/08/17 18:29 A/P Problem List: (1) Upper GI bleed ICD Code: K92.2 Status: Acute (2) Elevated INR ICD Code: R79.1 Status: Resolved (3) Anemia ICD Code: D64.9 Status: Acute (4) History of CVA with residual deficit ICD Code: I69.30 Status: Chronic Assessment and Plan GI bleed/ Anemia secondary to blood loss Appreciate GI recommendations. Status post EGD with cautery of AVM. S/P colonoscopy, which revealed a colon mass. General surgery following. Status post biopsy. Pathology revealed well-differentiated adenocarcinoma of the colon. - follow CBC and transfuse as needed. - PPI. - iron per hematology. Colon cancer Discussed with general surgery. No evidence on imaging for metastatic disease. Cleared from Cardiac standpoint for surgery. S/p laparoscopic right hemicolectomy with primary anastomosis 05/03. Oncology consult appreciated. - wound care and pain control. Add oxycodone, continue morphine for breakthrough. - regular diet per surgery. Added Ensure. - incentive spirometry. History of CVA Significant expressive aphasia and right sided paralysis. Unable to use anticoagulation secondary to GI bleed as above. Patient resides at a halfway facility. - Will need GI and surgery clearance post op regarding when it will be acceptable to restart Coumadin. - PT. Add OT. Coagulopathy Patient received vit K, FFP. - Coumadin on hold. Resume when cleared by surgery. Hypokalemia Secondary to decreased by mouth intake. - Replete and monitor. Hiccups Likely s/t recent abdominal surgery. - trial of chlorpromazine. - Continue PPI. Diarrhea C diff negative. Possibly related to surgery. - supportive care. Continue IVFs. - follow up with surgery. DVT prophylaxis: CHANTALE Bass. Heparin subq as there is no further evidence of active bleeding Discharge Planning Awaiting surgical clearance. Will need SNF Mike Gagnon DO May 08, 2017 14:38
[2017-05-08 16:00] VITALS: BP 130/80; PULSE 109; RESP 19; TEMP 97.9; O2SAT 96
[2017-05-08] MEDS: POTASSIUM CHLOR 20 MEQ PREMIX 100 ML IV SCH (16:37)
[2017-05-08 22:00] VITALS: BP 114/67; PULSE 112; RESP 17; TEMP 99.5; O2SAT 93
[2017-05-09] VITALS: BP 128/61; PULSE 106; RESP 17; TEMP 98.7; O2SAT 94
[2017-05-09] MEDS: CHLORHEXIDINE GLUCONATE 2 % 1 PACK (2 CLOTHS) TOP SCH (04:00)
[2017-05-09 05:50] LABS: HEMATOCRIT 26.3 % (39.0-51.0); MEAN CELL VOLUME 81.7 FL (80.0-100.0); MEAN CORPUSCULAR HEMOGLOBIN 26.8 PG (27.0-34.0); MEAN CORPUSCULAR HGB CONC 32.8 % (32.0-36.0); PLATELET COUNT 398 TH/MM3 (150-450); RED BLOOD COUNT 3.22 MIL/MM3 (4.50-5.90); RED CELL DISTRIBUTION WIDTH 21.8 % (11.6-17.2); REVIEW FLAG FINAL; WHITE BLOOD COUNT 4.7 TH/MM3 (4.0-11.0)
[2017-05-09 06:08] LABS: BICARBONATE 23.9 MEQ/L (21.0-32.0); MAGNESIUM 1.4 MG/DL (1.5-2.5)
[2017-05-09 06:11] LABS: POTASSIUM 2.6 MEQ/L (3.5-5.1)
[2017-05-09] MEDS ORDERED: MAGNESIUM SULFATE 1 GM PREMIX 100 ML IV ONE (06:30)
[2017-05-09] MEDS ORDERED: POTASSIUM CHLORIDE 20 MEQ CONTROLLED RELEASE TAB PO ONE (06:30)
[2017-05-09] MEDS: DOCUSATE SODIUM 50 MG/SENNA 8.6 MG TAB PO SCH ×2 (07:10→20:37)
[2017-05-09 08:00] VITALS: BP 106/58; PULSE 101; RESP 19; TEMP 99.2; O2SAT 95
[2017-05-09] MEDS: PANTOPRAZOLE SOD 40 MG DELAYED RELEASE TAB PO SCH ×2 (08:00→20:37)
[2017-05-09] MEDS: IRON SUCROSE INJ 200 MG in SODIUM CHLORIDE 0.9% INJ 100 ML IV SCH (08:00)
[2017-05-09] MEDS: DEXT 5%-NACL 0.9% 1000 ML INJ 1,000 ML IV SCH (08:01)
[2017-05-09] MEDS: SODIUM CHLORIDE 0.9% FLUSH 10 ML FLUSH IV FLUSH SCH ×2 (08:01→20:37)
[2017-05-09] MEDS: HEPARIN SODIUM - SQ 10,000 UNITS/ML VIAL SQ SCH ×2 (10:04→20:37)
[2017-05-09] MEDS: POTASSIUM CHLOR 20 MEQ PREMIX 100 ML IV SCH ×2 (10:04→11:50)
[2017-05-09 10:08] VITALS: O2SAT 95
--- NOTE | 2017-05-09 10:26 | HHI.PR ---
Subjective Remarks The patient was resting comfortably in bed. He denied any pain at this time. He did report that he had diarrhea. Discussed with nursing at the bedside. Objective Vitals Vital Signs Date Time Temp Pulse Resp B/P Pulse Ox O2 Delivery O2 Flow Rate FiO2 05/09/17 10:08 95 05/09/17 09:04 18 05/09/17 08:00 99.2 101 19 106/58 95 05/09/17 00:00 98.7 106 17 128/61 94 05/08/17 22:00 99.5 112 17 114/67 93 05/08/17 20:08 21 05/08/17 16:00 97.9 109 19 130/80 96 05/08/17 12:00 99.0 103 20 135/75 95 I/O 05/08/17 05/08/17 05/08/17 05/09/17 05/09/17 05/09/17 07:00 15:00 23:00 07:00 15:00 23:00 Intake Total 831 ml 760 ml 1512 ml 982 ml 120 ml Output Total 50 ml 400 ml 450 ml 800 ml Balance 781 ml 360 ml 1062 ml 182 ml 120 ml Intake Oral 240 ml 760 ml 240 ml 240 ml 120 ml IV Total 591 ml 1272 ml 742 ml Output Urine Total 50 ml 400 ml 450 ml 800 ml # Bowel Movements 20 1 2 Result Diagram: 05/09/17 0439 05/09/17 0439 Imaging Last Impressions Chest CT 04/30/17 0000 Signed Impressions: Service Date/Time: Sunday, April 30, 2017 08:14 - CONCLUSION: 1. Redemonstration of moderate upper lobe predominant centrilobular emphysema with biapical and anterior left upper lobe scarring. 2. Redemonstration of at least three sub-5 mm solid subpleural nodules. Followup examination is recommended in 12 months (multiple solid nodules. <6mm, in high risk patient) per 2017 Fleischner guidelines. These nodules are below the threshold for PET exam. 3. Redemonstration of nonspecific 1.3 cm left AP window lymph node. Jhon Flores MD Abdomen/Pelvis CT 04/25/17 0000 Signed Impressions: Service Date/Time: Tuesday, April 25, 2017 13:19 - CONCLUSION: 1. No evidence for metastatic disease to the abdomen and pelvis. 2. Focal mural thickening and near the hepatic flexure with history of colonic mass. 3. Colonic diverticulosis without diverticulitis. Prostatic enlargement. Previous screw fixation right femur. Tutu Givens MD Head CT 04/22/17 0751 Signed Impressions: Service Date/Time: March 04:42 - CONCLUSION: No acute findings. 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 aDgoberto English MD Objective Remarks GENERAL: Patient appearing older than stated age, expressive aphasia. Hiccuping. SKIN: Pale. CARDIOVASCULAR: Normal rate and regular rhythm without murmurs, gallops, or rubs. RESPIRATORY: Good respiratory efforts. Breath sounds equal and clear to auscultation bilaterally. GASTROINTESTINAL: Abdomen soft, nontender to palpation, non-distended. Normal active bowel sounds. Surgical site appears clean, noninfected. MUSCULOSKELETAL: Extremities without cyanosis, or edema. NEURO: Expressive aphasia, right sided paralysis. PSYCH: Calm. Procedures EGD/ colonoscopy Medications and IVs Current Medications Medications (Trade) Dose Ordered Sig/Titus Route Start Time Stop Time Status Last Admin (Mag-Al Plus Susp Liq) 15 ml Q6H PRN PO 04/21/17 21:15 (NS Flush) 2 ml UNSCH PRN IV FLUSH 04/21/17 19:45 (NS Flush) 2 ml BID IV FLUSH 04/21/17 21:00 05/07/17 10:02 Miscellaneous Information 1 Q361D XX 04/21/17 19:45 (Chlorhexidine 2% Cloth) Taper DAILY@04 TOP 04/22/17 04:00 04/18/18 03:59 04/23/17 03:56 (Chlorhexidine 2% Cloth) 3 pack UNSCH PRN TOP 04/21/17 19:45 ([place]-Colace) 1 tab BID PO 04/21/17 21:00 05/07/17 20:31 (Milk Of Magnesia Liq) 30 ml Q12H PRN PO 04/21/17 19:45 05/02/17 18:16 (Senokot) 17.2 mg Q12H PRN PO 04/21/17 19:45 (Dulcolax Supp) 10 mg DAILY PRN RECTAL 04/21/17 19:45 (Lactulose Liq) 30 ml DAILY PRN PO 04/21/17 19:45 05/02/17 21:28 (Heparin Inj) 5,000 units Q12H SQ 04/29/17 10:00 05/09/17 10:04 (Protonix) 40 mg Q12HR PO 05/01/17 21:00 05/09/17 08:00 (Morphine Inj) 2 mg Q4H PRN IV 05/04/17 17:45 05/06/17 08:16 (Roxicodone) 5 mg Q4H PRN PO 05/04/17 15:45 (Roxicodone) 10 mg Q4H PRN PO 05/04/17 15:45 05/09/17 08:00 Chlorpromazine 25 mg 25 mg Q8H PRN PO 05/07/17 19:00 05/08/17 23:43 Dextrose/Sodium Chloride 1,000 ml @ 75 mls/hr [id number] IV 05/08/17 18:45 05/09/17 21:24 05/09/17 08:01 (KCl 20 Meq Premix Inj) 100 ml @ 50 mls/hr Q2H IV 05/09/17 10:00 05/09/17 13:59 05/09/17 10:04 A/P Problem List: (1) Upper GI bleed ICD Code: K92.2 Status: Acute (2) Elevated INR ICD Code: R79.1 Status: Resolved (3) Anemia ICD Code: D64.9 Status: Acute (4) History of CVA with residual deficit ICD Code: I69.30 Status: Chronic Assessment and Plan GI bleed/ Anemia secondary to blood loss Appreciate GI recommendations. Status post EGD with cautery of AVM. S/P colonoscopy, which revealed a colon mass. General surgery following. Status post biopsy. Pathology revealed well-differentiated adenocarcinoma of the colon. - follow CBC and transfuse as needed. - PPI. - iron per hematology. Colon cancer Discussed with general surgery. No evidence on imaging for metastatic disease. Cleared from cardiac standpoint for surgery. S/p laparoscopic right hemicolectomy with primary anastomosis 05/03. Oncology consult appreciated. - wound care and pain control. Add oxycodone, continue morphine for breakthrough. - regular diet per surgery. Added Ensure. - incentive spirometry. History of CVA Significant expressive aphasia and right sided paralysis. Unable to use anticoagulation secondary to GI bleed as above. [facility] - Will need GI and surgery clearance post op regarding when it will be acceptable to restart Coumadin. - PT. Add OT. Coagulopathy Patient received vit K, FFP. - Coumadin on hold. Resume when cleared by surgery. Severe hypokalemia Secondary to decreased by mouth intake and nonstop diarrhea. - Replete with IV KCl and monitor. Hiccups Likely s/t recent abdominal surgery. - trial of chlorpromazine. Improved. - Continue PPI. Diarrhea C diff negative. Stool culture negative. Possibly related to surgery. - supportive care. Continue IVFs. - follow up with surgery. Consider Imodium. DVT prophylaxis: CHANTLAE Bass. Heparin subq as there is no further evidence of active bleeding Discharge Planning Awaiting surgical clearance. Will need SNF Mike Gagnon DO May 09, 2017 10:26
[2017-05-09 12:00] VITALS: BP 110/60; PULSE 100; RESP 19; TEMP 99.2; O2SAT 96
[2017-05-09 16:00] VITALS: BP 107/56; PULSE 91; RESP 19; TEMP 97.6; O2SAT 96
--- NOTE | 2017-05-09 17:00 | HHI.PR ---
Subjective Subjective Notes DAILY PROGRESS NOTE FOR SURGICAL ATTENDING, DR. TUTU KNUTSON Patient does not have any complaints Answers simple questions with yes or no Objective Vitals/I&O Vital Signs Date Time Temp Pulse Resp B/P Pulse Ox O2 Delivery O2 Flow Rate FiO2 05/09/17 16:00 97.6 91 19 107/56 96 05/08/17 20:08 21 05/06/17 12:22 Nasal Cannula 1.00 Labs Laboratory Tests Test 05/09/17 04:39 White Blood Count 4.7 Red Blood Count 3.22 Hemoglobin 8.6 Hematocrit 26.3 Mean Corpuscular Volume 81.7 Mean Corpuscular Hemoglobin 26.8 Mean Corpuscular Hemoglobin 32.8 Concent Red Cell Distribution Width 21.8 Platelet Count 398 Mean Platelet Volume 6.4 Sodium Level 136 Potassium Level 2.6 Chloride Level 102 Carbon Dioxide Level 23.9 Anion Gap 10 Blood Urea Nitrogen 7 Creatinine 0.32 Estimat Glomerular Filtration 280 Rate Random Glucose 105 Calcium Level 7.7 Magnesium Level 1.4 Date/Time Procedure Status Source Growth 05/08/17 11:45 - Final Complete Stool Stool NO ENTERIC PATHOGENS DETECTED BY PCR... Radiology Last Impressions Chest CT 04/30/17 0000 Signed Impressions: Service Date/Time: Sunday, April 30, 2017 08:14 - CONCLUSION: 1. Redemonstration of moderate upper lobe predominant centrilobular emphysema with biapical and anterior left upper lobe scarring. 2. Redemonstration of at least three sub-5 mm solid subpleural nodules. Followup examination is recommended in 12 months (multiple solid nodules. <6mm, in high risk patient) per 2017 Fleischner guidelines. These nodules are below the threshold for PET exam. 3. Redemonstration of nonspecific 1.3 cm left AP window lymph node. Jhon Flores MD Abdomen/Pelvis CT 04/25/17 0000 Signed Impressions: Service Date/Time: Tuesday, April 25, 2017 13:19 - CONCLUSION: 1. No evidence for metastatic disease to the abdomen and pelvis. 2. Focal mural thickening and near the hepatic flexure with history of colonic mass. 3. Colonic diverticulosis without diverticulitis. Prostatic enlargement. Previous screw fixation right femur. Tutu Givens MD Head CT 04/22/17 0751 Signed Impressions: Service Date/Time: March 04:42 - CONCLUSION: No acute findings. 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 Dagoberto English MD Abdomen: Post-op tenderness Extremities: SCD's on Narrative Exam Limited movement right upper extremity chronic Renee dressing intact A/P Problem List: (1) History of CVA with residual deficit (2) Upper GI bleed (3) Colon adenocarcinoma (4) S/P colon resection Assessment and Plan 66 year old male with anemia; hepatic flexure mass, now with loose stools. -POD6 lap RIGHT hemicolectomy -PT; OOB -IS -Advance to regular diet + protein shakes -Pain control -SQ heparin -PT following Attending Statement NOTE FOR SURGICAL ATTENDING, DR. TUTU KNUTSON I attest that I had a mydc-uk-shcy encounter with the patient on the same day, and personally performed and documented my assessment and findings in the medical record. The following services were provided during this hospital visit: Chart data review, vital sign assessments/reviewing monitor data Review of consultations notes if present. Medication orders/review and/or management Ordering and/or reviewing lab tests Ordering and/or interpreting/reviewing x-rays and/or diagnostic studies Care of the patient and discussion of the patient with the care team Documentation time To help prompt me to consider important information that might be impacting today's encounter and assessment, information from prior notes written by myself or my colleagues may have been "brought forward/copy and pasted" into today's note. Tutu Knutson MD May 09, 2017 17:00
[2017-05-09 19:25] LABS: BICARBONATE 21.5 MEQ/L (21.0-32.0); MAGNESIUM 1.6 MG/DL (1.5-2.5)
[2017-05-09 20:00] VITALS: BP 100/60; PULSE 96; RESP 17; TEMP 98.3; O2SAT 95
[2017-05-10] VITALS: BP_SYST 107; BP_SYST 108; BP_DIAS 58; BP_DIAS 60; PULSE 80; PULSE 95; RESP 17; RESP 18; TEMP 98.8; TEMP 99.5; O2SAT 97
[2017-05-10] MEDS: CHLORHEXIDINE GLUCONATE 2 % 1 PACK (2 CLOTHS) TOP SCH (03:11)
[2017-05-10] MEDS: chlorproMAZINE HCL 25 MG TAB PO PRN ×3 (03:23→20:55)
[2017-05-10 06:32] LABS: HEMATOCRIT 23.6 % (39.0-51.0); MEAN CORPUSCULAR HEMOGLOBIN 27.1 PG (27.0-34.0); MEAN CORPUSCULAR HGB CONC 32.6 % (32.0-36.0); PLATELET COUNT 364 TH/MM3 (150-450); RED BLOOD COUNT 2.84 MIL/MM3 (4.50-5.90); RED CELL DISTRIBUTION WIDTH 22.7 % (11.6-17.2); REVIEW FLAG FINAL; WHITE BLOOD COUNT 4.4 TH/MM3 (4.0-11.0)
[2017-05-10 06:50] LABS: BICARBONATE 21.7 MEQ/L (21.0-32.0); MAGNESIUM 1.4 MG/DL (1.5-2.5)
[2017-05-10 06:56] LABS: POTASSIUM 2.6 MEQ/L (3.5-5.1)
[2017-05-10 08:00] VITALS: BP 103/55; PULSE 94; RESP 19; TEMP 97.9; O2SAT 93
[2017-05-10] MEDS: DOCUSATE SODIUM 50 MG/SENNA 8.6 MG TAB PO SCH ×3 (09:00→21:00)
[2017-05-10] MEDS: PANTOPRAZOLE SOD 40 MG DELAYED RELEASE TAB PO SCH ×2 (09:25→20:55)
[2017-05-10] MEDS: MAGNESIUM SULFATE 1 GM PREMIX 100 ML IV SCH ×3 (09:26→13:56)
[2017-05-10] MEDS: POTASSIUM CHLOR 20 MEQ PREMIX 100 ML IV SCH ×2 (09:26→13:57)
[2017-05-10] MEDS: SODIUM CHLORIDE 0.9% FLUSH 10 ML FLUSH IV FLUSH SCH ×2 (09:26→20:56)
[2017-05-10] MEDS: HEPARIN SODIUM - SQ 10,000 UNITS/ML VIAL SQ SCH ×2 (09:29→20:59)
[2017-05-10 12:00] VITALS: BP 95/55; PULSE 90; RESP 17; TEMP 97; O2SAT 94
--- NOTE | 2017-05-10 12:02 | HHI.PR ---
Subjective Remarks The pt said he still had the hiccups. He said his pain was a 7 or an 8 out of 10. He said he still has diarrhea. Discussed with nursing. Objective Vitals Vital Signs Date Time Temp Pulse Resp B/P Pulse Ox O2 Delivery O2 Flow Rate FiO2 05/10/17 08:00 97.9 94 19 103/55 93 05/10/17 00:00 98.8 95 17 107/60 97 05/09/17 20:00 98.3 96 17 100/60 95 05/09/17 16:00 97.6 91 19 107/56 96 05/09/17 12:00 99.2 100 19 110/60 96 I/O 05/09/17 05/09/17 05/09/17 05/10/17 05/10/17 05/10/17 06:59 14:59 22:59 06:59 14:59 22:59 Intake Total 982 ml 120 ml 1488 ml 712 ml Output Total 800 ml 200 ml 800 ml Balance 182 ml 120 ml 1288 ml -88 ml Intake Oral 240 ml 120 ml 480 ml 240 ml IV Total 742 ml 1008 ml 472 ml Output Urine Total 800 ml 200 ml 800 ml # Bowel Movements 2 3 Result Diagram: 05/10/17 0521 05/10/17 0521 Imaging Last Impressions Chest CT 04/30/17 0000 Signed Impressions: Service Date/Time: Sunday, April 30, 2017 08:14 - CONCLUSION: 1. Redemonstration of moderate upper lobe predominant centrilobular emphysema with biapical and anterior left upper lobe scarring. 2. Redemonstration of at least three sub-5 mm solid subpleural nodules. Followup examination is recommended in 12 months (multiple solid nodules. <6mm, in high risk patient) per 2017 Fleischner guidelines. These nodules are below the threshold for PET exam. 3. Redemonstration of nonspecific 1.3 cm left AP window lymph node. Jhon Flores MD Abdomen/Pelvis CT 04/25/17 0000 Signed Impressions: Service Date/Time: Tuesday, April 25, 2017 13:19 - CONCLUSION: 1. No evidence for metastatic disease to the abdomen and pelvis. 2. Focal mural thickening and near the hepatic flexure with history of colonic mass. 3. Colonic diverticulosis without diverticulitis. Prostatic enlargement. Previous screw fixation right femur. Tutu Givens MD Head CT 04/22/17 0751 Signed Impressions: Service Date/Time: March 04:42 - CONCLUSION: No acute findings. 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 Dagoberto English MD Objective Remarks GENERAL: Patient appearing older than stated age, expressive aphasia. SKIN: Pale. CARDIOVASCULAR: Normal rate and regular rhythm without murmurs, gallops, or rubs. RESPIRATORY: Good respiratory efforts. Breath sounds equal and clear to auscultation bilaterally. GASTROINTESTINAL: Abdomen soft, nontender to palpation, non-distended. Normal active bowel sounds. Surgical site appears clean, noninfected. MUSCULOSKELETAL: Extremities without cyanosis, or edema. NEURO: Expressive aphasia, right sided paralysis. PSYCH: Mood and affect appropriate. Procedures EGD/ colonoscopy Medications and IVs Current Medications Medications (Trade) Dose Ordered Sig/Titus Route Start Time Stop Time Status Last Admin (Mag-Al Plus Susp Liq) 15 ml Q6H PRN PO 04/21/17 21:15 (NS Flush) 2 ml UNSCH PRN IV FLUSH 04/21/17 19:45 (NS Flush) 2 ml BID IV FLUSH 04/21/17 21:00 05/10/17 09:26 Miscellaneous Information 1 Q361D XX 04/21/17 19:45 (Chlorhexidine 2% Cloth) Taper DAILY@04 TOP 04/22/17 04:00 04/18/18 03:59 04/23/17 03:56 (Chlorhexidine 2% Cloth) 3 pack UNSCH PRN TOP 04/21/17 19:45 ([place]-Colace) 1 tab BID PO 04/21/17 21:00 05/07/17 20:31 (Milk Of Magnesia Liq) 30 ml Q12H PRN PO 04/21/17 19:45 05/02/17 18:16 (Senokot) 17.2 mg Q12H PRN PO 04/21/17 19:45 (Dulcolax Supp) 10 mg DAILY PRN RECTAL 04/21/17 19:45 (Lactulose Liq) 30 ml DAILY PRN PO 04/21/17 19:45 05/02/17 21:28 (Heparin Inj) 5,000 units Q12H SQ 04/29/17 10:00 05/10/17 09:29 (Protonix) 40 mg Q12HR PO 05/01/17 21:00 05/10/17 09:25 (Morphine Inj) 2 mg Q4H PRN IV 05/04/17 17:45 05/06/17 08:16 (Roxicodone) 5 mg Q4H PRN PO 05/04/17 15:45 (Roxicodone) 10 mg Q4H PRN PO 05/04/17 15:45 05/09/17 16:15 Chlorpromazine 25 mg 25 mg Q8H PRN PO 05/07/17 19:00 05/10/17 09:31 Potassium Chloride 100 ml @ 50 mls/hr Q2H IV 05/10/17 08:00 05/10/17 11:59 05/10/17 09:26 (Magnesium Sulfate 1 Gm Premix) 100 ml @ 100 mls/hr Q1H IV 05/10/17 09:00 05/10/17 11:59 05/10/17 09:26 A/P Problem List: (1) Upper GI bleed ICD Code: K92.2 Status: Acute (2) Elevated INR ICD Code: R79.1 Status: Resolved (3) Anemia ICD Code: D64.9 Status: Acute (4) History of CVA with residual deficit ICD Code: I69.30 Status: Chronic Assessment and Plan GI bleed/ Anemia secondary to blood loss Appreciate GI recommendations. Status post EGD with cautery of AVM. S/P colonoscopy, which revealed a colon mass. General surgery following. Status post biopsy. Pathology revealed well-differentiated adenocarcinoma of the colon. - follow CBC and transfuse as needed. - PPI. - iron per hematology. Colon cancer Discussed with general surgery. No evidence on imaging for metastatic disease. Cleared from cardiac standpoint for surgery. S/p laparoscopic right hemicolectomy with primary anastomosis 05/03. Oncology consult appreciated. - wound care and pain control. Add oxycodone, continue morphine for breakthrough. - regular diet per surgery. Added Ensure. - incentive spirometry. History of CVA Significant expressive aphasia and right sided paralysis. Unable to use anticoagulation secondary to GI bleed as above. Patient resides at a intermediate facility. - Will need GI and surgery clearance post op regarding when it will be acceptable to restart Coumadin. - PT. Added OT. Coagulopathy Patient received vit K, FFP. - Coumadin on hold. Resume when cleared by surgery. Severe hypokalemia/ Hypomagnesemia Secondary to decreased by mouth intake and nonstop diarrhea. - Replete with IV KCl and Mg Sulfate and monitor closely. Hiccups Likely s/t recent abdominal surgery. - trial of chlorpromazine. Improved. - Continue PPI. Diarrhea C diff negative. Stool culture negative. Possibly related to surgery. Improved. - supportive care. Continue IVFs. - follow up with surgery. DVT prophylaxis: CHANTALE Bass. Heparin subq as there is no further evidence of active bleeding Discharge Planning Awaiting surgical clearance. Will need SNF Mike Gagnon DO May 10, 2017 12:02
--- NOTE | 2017-05-10 14:25 | HHI.PR ---
Subjective Subjective Notes Resting in bed No issues overnight +BM Objective Vitals/I&O Vital Signs Date Time Temp Pulse Resp B/P Pulse Ox O2 Delivery O2 Flow Rate FiO2 05/10/17 12:00 97.0 90 17 95/55 94 05/08/17 20:08 21 05/06/17 12:22 Nasal Cannula 1.00 Labs Laboratory Tests Test 05/09/17 05/10/17 18:00 05:21 Sodium Level 137 137 Potassium Level 3.0 2.6 Chloride Level 106 106 Carbon Dioxide Level 21.5 21.7 Anion Gap 10 9 Blood Urea Nitrogen 7 6 Creatinine 0.44 0.28 Estimat Glomerular Filtration 194 327 Rate Random Glucose 146 93 Calcium Level 7.7 7.7 Magnesium Level 1.6 1.4 White Blood Count 4.4 Red Blood Count 2.84 Hemoglobin 7.7 Hematocrit 23.6 Mean Corpuscular Volume 83.0 Mean Corpuscular Hemoglobin 27.1 Mean Corpuscular Hemoglobin 32.6 Concent Red Cell Distribution Width 22.7 Platelet Count 364 Mean Platelet Volume 6.2 Date/Time Procedure Status Source Growth 05/08/17 11:45 - Final Complete Stool Stool NO ENTERIC PATHOGENS DETECTED BY PCR... Radiology Last Impressions Chest CT 04/30/17 0000 Signed Impressions: Service Date/Time: Sunday, April 30, 2017 08:14 - CONCLUSION: 1. Redemonstration of moderate upper lobe predominant centrilobular emphysema with biapical and anterior left upper lobe scarring. 2. Redemonstration of at least three sub-5 mm solid subpleural nodules. Followup examination is recommended in 12 months (multiple solid nodules. <6mm, in high risk patient) per 2017 Fleischner guidelines. These nodules are below the threshold for PET exam. 3. Redemonstration of nonspecific 1.3 cm left AP window lymph node. Jhon Flores MD Abdomen/Pelvis CT 04/25/17 0000 Signed Impressions: Service Date/Time: Tuesday, April 25, 2017 13:19 - CONCLUSION: 1. No evidence for metastatic disease to the abdomen and pelvis. 2. Focal mural thickening and near the hepatic flexure with history of colonic mass. 3. Colonic diverticulosis without diverticulitis. Prostatic enlargement. Previous screw fixation right femur. Tutu Givens MD Head CT 04/22/17 0751 Signed Impressions: Service Date/Time: March 04:42 - CONCLUSION: No acute findings. 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 Dagoberto English MD Cardiovascular: Regular Lungs: Clear Abdomen: Other (PAUL removed; incision c/d/i; lap sites c/d/i ) Extremities: No edema A/P Problem List: (1) History of CVA with residual deficit (2) Upper GI bleed (3) Colon adenocarcinoma (4) S/P colon resection Assessment and Plan 66 year old male with anemia; hepatic flexure mass -POD7 lap RIGHT hemicolectomy -PT; OOB -IS -Regular diet + Protein shakes -Pain control -SQ heparin -PT following -DC planning Ely Key May 10, 2017 14:25
[2017-05-10] MEDS ORDERED: POTASSIUM CHLORIDE 20 MEQ CONTROLLED RELEASE TAB PO ONE (15:45)
[2017-05-10 16:00] VITALS: BP 101/58; PULSE 87; RESP 17; TEMP 96.9; O2SAT 96
[2017-05-10 20:00] VITALS: BP 100/55; PULSE 85; RESP 20; TEMP 98.8; O2SAT 95
[2017-05-10 23:11] LABS: BICARBONATE 26.3 MEQ/L (21.0-32.0)
[2017-05-10 23:38] LABS: CALCIUM-PROTEIN CORRECTED 8.5 MG/DL (8.5-10.1)
[2017-05-11] MEDS ORDERED: POTASSIUM CHLORIDE 20 MEQ CONTROLLED RELEASE TAB PO ONE (02:00)
[2017-05-11] MEDS: POTASSIUM CHLOR 20 MEQ PREMIX 100 ML IV SCH ×2 (02:45→05:35)
[2017-05-11] MEDS: CHLORHEXIDINE GLUCONATE 2 % 1 PACK (2 CLOTHS) TOP SCH (04:00)
[2017-05-11 05:07] LABS: HEMATOCRIT 26.2 % (39.0-51.0); MEAN CELL VOLUME 83.9 FL (80.0-100.0); MEAN CORPUSCULAR HEMOGLOBIN 27.1 PG (27.0-34.0); MEAN CORPUSCULAR HGB CONC 32.3 % (32.0-36.0); PLATELET COUNT 365 TH/MM3 (150-450); RED BLOOD COUNT 3.12 MIL/MM3 (4.50-5.90); RED CELL DISTRIBUTION WIDTH 23.4 % (11.6-17.2); REVIEW FLAG FINAL; WHITE BLOOD COUNT 5.6 TH/MM3 (4.0-11.0)
[2017-05-11 05:47] LABS: MAGNESIUM 1.8 MG/DL (1.5-2.5); POTASSIUM 3.4 MEQ/L (3.5-5.1)
[2017-05-11 06:15] LABS: CALCIUM-PROTEIN CORRECTED 8.3 MG/DL (8.5-10.1)
[2017-05-11 08:00] VITALS: BP 110/66; PULSE 85; RESP 19; TEMP 98.3; O2SAT 92
[2017-05-11] MEDS: DOCUSATE SODIUM 50 MG/SENNA 8.6 MG TAB PO SCH (08:40)
[2017-05-11] MEDS: PANTOPRAZOLE SOD 40 MG DELAYED RELEASE TAB PO SCH (08:40)
[2017-05-11] MEDS: SODIUM CHLORIDE 0.9% FLUSH 10 ML FLUSH IV FLUSH SCH (08:40)
[2017-05-11] MEDS ORDERED: POTASSIUM CHLORIDE 25 MEQ EFFERVESCENT TAB PO ONE (08:45)
--- NOTE | 2017-05-11 10:20 | HHI.DCPOC ---
Discharge Care Plan Diagnosis: (1) Anemia due to GI blood loss (2) S/P colon resection (3) Colon adenocarcinoma (4) History of CVA with residual deficit (5) Elevated INR (6) Upper GI bleed (7) Hypokalemia Goals to Promote Your Health * To prevent worsening of your condition and complications * To maintain your health at the optimal level Directions to Meet Your Goals Take your medications as prescribed Follow your dietary instruction Follow activity as directed Keep your appointments as scheduled Take your immunizations and boosters as scheduled If your symptoms worsen call your PCP, if no PCP go to Urgent Care Center or Emergency Room Smoking is Dangerous to Your Health. Avoid second hand smoke Call the 24-hour hour crisis hotline for domestic abuse at Mike Gagnon DO May 11, 2017 10:20
--- NOTE | 2017-05-11 10:28 | HHI.DS ---
Discharge Summary Admission Date Apr 21, 2017 at 18:57 Discharge Date: May 11, 2017 Admitting Diagnosis Severe anemia, GI bleeding, Elevated INR (1) Upper GI bleed ICD Code: K92.2 Diagnosis: Principal (2) Elevated INR ICD Code: R79.1 Diagnosis: Principal (3) Anemia ICD Code: D64.9 (4) History of CVA with residual deficit ICD Code: I69.30 (5) Hypokalemia ICD Code: E87.6 Diagnosis: Principal (6) Colon adenocarcinoma ICD Code: C18.9 Diagnosis: Principal (7) S/P colon resection ICD Code: Z90.49 Diagnosis: Principal Procedures EGD/ colonoscopy Brief History - From Admission 66-year-old male with a history of left-sided stroke leading right-sided deficits and aphasia presents with low hemoglobin and GI bleeding. Patient has been on Coumadin and had some dark stools. He has had his lab work done today at the residential which showed a hemoglobin of approximately 4. The patient is an incredibly difficult historian secondary to his expressive aphasia. He does however complain of some minimal suprapubic pain. He denies any chest pain shortness of breath. CBC/BMP: 05/11/17 0445 05/11/17 0445 Significant Findings Laboratory Tests Test 05/09/17 05/09/17 05/10/17 05/10/17 04:39 18:00 05:21 22:03 Red Blood Count 3.22 MIL/MM3 2.84 MIL/MM3 (4.50-5.90) (4.50-5.90) Hemoglobin 8.6 GM/DL 7.7 GM/DL (13.0-17.0) (13.0-17.0) Hematocrit 26.3 % 23.6 % (39.0-51.0) (39.0-51.0) Mean Corpuscular Hemoglobin 26.8 PG (27.0-34.0) Red Cell Distribution Width 21.8 % 22.7 % (11.6-17.2) (11.6-17.2) Mean Platelet Volume 6.4 FL 6.2 FL (7.0-11.0) (7.0-11.0) Potassium Level 2.6 MEQ/L 3.0 MEQ/L 2.6 MEQ/L 3.0 MEQ/L (3.5-5.1) (3.5-5.1) (3.5-5.1) (3.5-5.1) Creatinine 0.32 MG/DL 0.44 MG/DL 0.28 MG/DL 0.41 MG/DL (0.60-1.30) (0.60-1.30) (0.60-1.30) (0.60-1.30) Calcium Level 7.7 MG/DL 7.7 MG/DL 7.7 MG/DL 7.3 MG/DL (8.5-10.1) (8.5-10.1) (8.5-10.1) (8.5-10.1) Magnesium Level 1.4 MG/DL 1.4 MG/DL (1.5-2.5) (1.5-2.5) Random Glucose 146 MG/DL (74-106) Blood Urea Nitrogen 6 MG/DL (7-18) 5 MG/DL (7-18) Sodium Level 135 MEQ/L (136-145) Total Protein 4.9 GM/DL (6.4-8.2) Test 05/11/17 04:45 Red Blood Count 3.12 MIL/MM3 (4.50-5.90) Hemoglobin 8.4 GM/DL (13.0-17.0) Hematocrit 26.2 % (39.0-51.0) Red Cell Distribution Width 23.4 % (11.6-17.2) Mean Platelet Volume 5.8 FL (7.0-11.0) Potassium Level 3.4 MEQ/L (3.5-5.1) Blood Urea Nitrogen 4 MG/DL (7-18) Creatinine 0.36 MG/DL (0.60-1.30) Calcium Level 7.4 MG/DL (8.5-10.1) Protein Corrected Calcium 8.3 MG/DL (8.5-10.1) Total Protein 5.4 GM/DL (6.4-8.2) Imaging Last Impressions Chest CT 04/30/17 0000 Signed Impressions: Service Date/Time: Sunday, April 30, 2017 08:14 - CONCLUSION: 1. Redemonstration of moderate upper lobe predominant centrilobular emphysema with biapical and anterior left upper lobe scarring. 2. Redemonstration of at least three sub-5 mm solid subpleural nodules. Followup examination is recommended in 12 months (multiple solid nodules. <6mm, in high risk patient) per 2017 Fleischner guidelines. These nodules are below the threshold for PET exam. 3. Redemonstration of nonspecific 1.3 cm left AP window lymph node. Jhon Flores MD Abdomen/Pelvis CT 04/25/17 0000 Signed Impressions: Service Date/Time: Tuesday, April 25, 2017 13:19 - CONCLUSION: 1. No evidence for metastatic disease to the abdomen and pelvis. 2. Focal mural thickening and near the hepatic flexure with history of colonic mass. 3. Colonic diverticulosis without diverticulitis. Prostatic enlargement. Previous screw fixation right femur. Tutu Givens MD Head CT 04/22/17 0751 Signed Impressions: Service Date/Time: March 04:42 - CONCLUSION: No acute findings. 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 Dagoberto English MD PE at Discharge GENERAL: Patient appearing older than stated age, expressive aphasia. SKIN: Pale. CARDIOVASCULAR: Normal rate and regular rhythm without murmurs, gallops, or rubs. RESPIRATORY: Good respiratory efforts. Breath sounds equal and clear to auscultation bilaterally. GASTROINTESTINAL: Abdomen soft, nontender to palpation, non-distended. Normal active bowel sounds. Surgical site appears clean, noninfected. MUSCULOSKELETAL: Extremities without cyanosis, or edema. NEURO: Expressive aphasia, right sided paralysis. PSYCH: Mood and affect appropriate. Pt update on day of discharge The patient still complained of abdominal pain. He said he still had some diarrhea. He said he still has the hiccups. Discussed with gastroenterology and general surgery. Hospital Course GI bleed/ Anemia secondary to blood loss The pt was initially admitted to the intensive care unit. He had an elevated INR. He received Kcentra, FFP and vitamin K in the ED. GI was consulted. Status post EGD with cautery of AVM. He was continued on a PPI BID. He was started on iron per hematology. He will follow up with GI as an outpt. Has been cleared for resumption of Coumadin. He will have a CBC followed as an outpt. He will follow up with GI. Colon cancer S/P colonoscopy which revealed a colon mass. General surgery was consulted. Status post biopsy. Pathology revealed well-differentiated invasive adenocarcinoma of the colon. No evidence on imaging for metastatic disease. Cleared from cardiac standpoint for surgery. S/p laparoscopic right hemicolectomy with primary anastomosis 05/03/17. Oncology was consulted. He received wound care and pain control. He was resumed on a regular diet per surgery. We added Ensure. He received incentive spirometry. He will follow up with surgery and oncology as an outpt. History of CVA Significant expressive aphasia and right sided paralysis. Anticoagulation held secondary to GI bleed as above. [facility] facility. He worked with PT/ OT. GI and general surgery both cleared the pt to be resumed on anticoagulation. He will be resumed on Coumadin and ASA. He will have an INR followed regularly at his SNF and his Coumadin will need to be adjusted accordingly. Severe hypokalemia/ Hypomagnesemia Secondary to decreased by mouth intake and nonstop diarrhea. Replete with IV/ PO KCl and Mg Sulfate. Stabilized. He will be discharged on KCl supplementation. He will have a BMP and mag level check in 2-3 days. Hiccups Improved with chlorpromazine. He was continued on a PPI. Diarrhea C diff negative. Stool culture negative. Improved. He received supportive care with IVFs. He will follow up with surgery and GI. Pt Condition on Discharge: Stable Discharge Disposition: Discharge to SNF Discharge Time: > 30 minutes Discharge Instructions DIET: Follow Instructions for: As Tolerated, No Restrictions Activities you can perform: Weight Bearing as Michelle Follow up Referrals: Gastroenterology - 2 Weeks with Juany Mancera MD Oncology - [address] Skaggs PCP Follow-up - 1 Week Surgical - 1 Week with Michel Mercedes MD New Orders: BASIC METABOLIC PROF - 2-3 Days CBC NO DIFF - 2-3 Days MAGNESIUM (MG) - 2-3 Days PT/INR - 2-3 Days New Medications: Potassium Chloride ER (Potassium Chloride ER) 20 Meq Tab 20 MEQ PO BID Electrolyte Replacement #30 Ref 0 TAB Warfarin (Coumadin) 5 Mg Tab 5 MG PO DAILY Blood Clot Prevention #30 Ref 0 TAB Oxycodone (Oxycodone) 5 Mg Tab 5 MG PO Q4H PRN pain #30 TAB Pantoprazole (Pantoprazole) 40 Mg Tab 40 MG PO Q12HR GIB #60 TAB Continued Medications: Acetaminophen (Tylenol) 325 Mg Tab 650 MG PO Q4H PRN Pain/Discomfort/Temp >101 Ref [address] (Aspirin Adult Low Strength) 81 Mg Tabdr 81 MG PO DAILY Blood Clot Prevention TAB Bisacodyl Supp (Dulcolax Supp) 10 Mg Supp 10 MG RECTAL DAILY PRN IF NO RESULTS FROM MILK OF MAG #12 Ref 0 SUPP Loperamide (Loperamide) 2 Mg Cap 4 MG PO INITIAL DOSE After initial dose, give 1 cap (2mg) after each loose stool , not to exceed 8 caps/2hrs-May give liquid if unable to take capsule PRN DIARRHEA Ref 0 CAP Mag Hydrox/Aluminum Hyd/Simeth (Antacid II-Simethicone Liq) 360 Ml Oral.susp 30 ML PO Q4HR PRN Heartburn/Indigestion Magnesium Hydroxide Liq (Milk of Magnesia Liq) 400 Mg/5 Ml Susp 30 ML PO Q4HR PRN CONSTIPATION #1 Ref 0 BOTTLE Sodium Phosphates (Enema Disposable) 1 Deb Deb 1 APPLIC RECTAL DIRECTED PRN IF NO RESULTS FROM DULCOLAX Discontinued Medications: Warfarin (Coumadin) 5 Mg Tab 5 MG PO SUTUTHFRSA Take 1 tablet (5mg) on daily on Wednesday,Wednesday,, Wednesday and Wednesday Blood Clot Prevention #30 Ref 0 TAB Warfarin (Coumadin) 5 Mg Tab 7 MG PO MOWE Take 1 tablet with 2mg tablet for a total dose of 7mg daily on Wednesday and Wednesday Blood Clot Prevention #30 Ref 0 TAB Warfarin (Coumadin) 2 Mg Tab 7 MG PO MOWE Take 1 tablet with a 5mg tablet for a total dose of 7mg daily on Wednesday and Wednesday Prevent Blood Clot #30 Ref 0 TAB Mike Gagnon DO May 11, 2017 10:28
[2017-05-11] MEDS ORDERED: COUM5TAB PO (10:30)
[2017-05-11] MEDS ORDERED: PANT40TA3 PO (10:30)
[2017-05-11] MEDS ORDERED: OXYC-392 PO (10:30)
[2017-05-11] MEDS ORDERED: POTA-163 PO (10:35)
[2017-05-11] MEDS: HEPARIN SODIUM - SQ 10,000 UNITS/ML VIAL SQ SCH (10:40)
[2017-05-11 12:00] VITALS: BP 107/57; PULSE 84; RESP 17; TEMP 98; O2SAT 97
--- NOTE | 2017-05-11 12:09 | HHI.PR ---
Subjective Subjective Notes Resting in bed Objective Vitals/I&O Vital Signs Date Time Temp Pulse Resp B/P Pulse Ox O2 Delivery O2 Flow Rate FiO2 05/11/17 08:00 98.3 85 19 110/66 92 05/08/17 20:08 21 Labs Laboratory Tests Test 05/10/17 05/11/17 22:03 04:45 Sodium Level 135 138 Potassium Level 3.0 3.4 Chloride Level 104 106 Carbon Dioxide Level 26.3 26.0 Anion Gap 5 6 Blood Urea Nitrogen 5 4 Creatinine 0.41 0.36 Estimat Glomerular Filtration 210 245 Rate Random Glucose 91 86 Calcium Level 7.3 7.4 Protein Corrected Calcium 8.5 8.3 Total Protein 4.9 5.4 White Blood Count 5.6 Red Blood Count 3.12 Hemoglobin 8.4 Hematocrit 26.2 Mean Corpuscular Volume 83.9 Mean Corpuscular Hemoglobin 27.1 Mean Corpuscular Hemoglobin 32.3 Concent Red Cell Distribution Width 23.4 Platelet Count 365 Mean Platelet Volume 5.8 Magnesium Level 1.8 Date/Time Procedure Status Source Growth 05/08/17 11:45 - Final Complete Stool Stool NO ENTERIC PATHOGENS DETECTED BY PCR... Radiology Last Impressions Chest CT 04/30/17 0000 Signed Impressions: Service Date/Time: Sunday, April 30, 2017 08:14 - CONCLUSION: 1. Redemonstration of moderate upper lobe predominant centrilobular emphysema with biapical and anterior left upper lobe scarring. 2. Redemonstration of at least three sub-5 mm solid subpleural nodules. Followup examination is recommended in 12 months (multiple solid nodules. <6mm, in high risk patient) per 2017 Fleischner guidelines. These nodules are below the threshold for PET exam. 3. Redemonstration of nonspecific 1.3 cm left AP window lymph node. Jhon Flores MD Abdomen/Pelvis CT 04/25/17 0000 Signed Impressions: Service Date/Time: Tuesday, April 25, 2017 13:19 - CONCLUSION: 1. No evidence for metastatic disease to the abdomen and pelvis. 2. Focal mural thickening and near the hepatic flexure with history of colonic mass. 3. Colonic diverticulosis without diverticulitis. Prostatic enlargement. Previous screw fixation right femur. Tutu Givens MD Head CT 04/22/17 0751 Signed Impressions: Service Date/Time: March 04:42 - CONCLUSION: No acute findings. 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 Dagoberto English MD Cardiovascular: Regular Lungs: Clear Abdomen: Other (midline incision with miriam; c/d/i; lap sites c/d/i ) Extremities: No edema A/P Problem List: (1) History of CVA with residual deficit (2) Upper GI bleed (3) Colon adenocarcinoma (4) S/P colon resection Assessment and Plan 66 year old male with anemia; hepatic flexure mass -POD8 lap RIGHT hemicolectomy -PT; OOB -IS -Regular diet + Protein shakes -Pain control -Okay to restart Coumadin -PT following -DC planning -GS clear for DC; follow up with Dr. Mercedes in one week Ely Key May 11, 2017 12:09
== END 2017-05-11 17:13 | DRG 330 ==
LOC: NEPE 16:52 → NEDA 18:57 → N03B 22:02 → N07A 04-23 14:51
PROVIDERS: ADMIT Internal Medicine; ATTEND Hospitalist
PROC: 30233N1 Transfusion of Nonautologous Red Blood Cells into Peripheral Vein, Percutaneous Approach (ICD-10-PCS; 2017-04-21)
PROC: 0D568ZZ Destruction of Stomach, Via Natural or Artificial Opening Endoscopic (ICD-10-PCS; 2017-04-22)
PROC: 0DJD8ZZ Inspection of Lower Intestinal Tract, Via Natural or Artificial Opening Endoscopic (ICD-10-PCS; 2017-04-23)
PROC: 0DBG8ZX Excision of Left Large Intestine, Via Natural or Artificial Opening Endoscopic, Diagnostic (ICD-10-PCS; 2017-04-25)
PROC: 0DBN8ZX Excision of Sigmoid Colon, Via Natural or Artificial Opening Endoscopic, Diagnostic (ICD-10-PCS; 2017-04-25)
PROC: 0DBF8ZX Excision of Right Large Intestine, Via Natural or Artificial Opening Endoscopic, Diagnostic (ICD-10-PCS; 2017-04-25)
PROC: 0WJP4ZZ Inspection of Gastrointestinal Tract, Percutaneous Endoscopic Approach (ICD-10-PCS; 2017-05-03)
PROC: 07BC4ZX Excision of Pelvis Lymphatic, Percutaneous Endoscopic Approach, Diagnostic (ICD-10-PCS; 2017-05-03)
PROC: 0DTF4ZZ Resection of Right Large Intestine, Percutaneous Endoscopic Approach (ICD-10-PCS; principal; 2017-05-03 12:06)
DX: C18.3 Malignant neoplasm of hepatic flexure (principal); K92.2 Gastrointestinal hemorrhage, unspecified; E46 Unspecified protein-calorie malnutrition; I69.351 Hemiplegia and hemiparesis following cerebral infarction affecting right dominant side; I65.22 Occlusion and stenosis of left carotid artery; K31.84 Gastroparesis; E83.42 Hypomagnesemia; D62 Acute posthemorrhagic anemia; J44.9 Chronic obstructive pulmonary disease, unspecified; K44.9 Diaphragmatic hernia without obstruction or gangrene; I69.320 Aphasia following cerebral infarction; R91.8 Other nonspecific abnormal finding of lung field; E78.5 Hyperlipidemia, unspecified; R11.2 Nausea with vomiting, unspecified; R79.1 Abnormal coagulation profile; K57.30 Diverticulosis of large intestine without perforation or abscess without bleeding; D12.4 Benign neoplasm of descending colon; D12.5 Benign neoplasm of sigmoid colon; K64.8 Other hemorrhoids; K64.4 Residual hemorrhoidal skin tags; K20.9 Esophagitis, unspecified; K29.70 Gastritis, unspecified, without bleeding; N40.0 Benign prostatic hyperplasia without lower urinary tract symptoms; T45.515A Adverse effect of anticoagulants, initial encounter; D63.0 Anemia in neoplastic disease; R06.6 Hiccough; E87.6 Hypokalemia; R19.7 Diarrhea, unspecified; Z79.01 Long term (current) use of anticoagulants; Q27.33 Arteriovenous malformation of digestive system vessel; Z87.891 Personal history of nicotine dependence; Z79.82 Long term (current) use of aspirin
CPT/HCPCS: 36430; 70450; 71260; 74177; 80048; 80053; 81001; 82378; 82607; 82747; 83540; 83550; 83690; 83735; 84100; 84134; 84155; 84466; 85014; 85018; 85025; 85027; 85384; 85610; 85730; 86301; 86850; 86900; 86901; 86920; 87086; 87493; 87506; 87641; 88305; 88309; 88360; 88361; 93005; 94150; 96360; C9113; C9132; J0131; J0171; J0690; J1644; J1756; J2250; J2270; J2354; J2370; J2405; J2710; J3010; J3430; J3475; J3480; J7030; J7042; J7050; J7120; P9016; Q9963; Q9967

== ENCOUNTER 2017-09-05 08:43 | Emergency (ER) | payer MEDICARE, OTHER ==
[~2017-09-05] VITALS: Ht 182.9 cm; Wt 70.0 kg
[~2017-09-05 08:43] MED LIST changes: +ASPI81TA16 PO; -DRIS50002 PO; +DULC10SU3 RECTAL; +ENEMENE5 RECTAL; +LOPE2CAP PO; +MILKSUS PO; +OXYC-392 PO; +POTA-163 PO; -VITA100T2 PO; -WALKER WHEELS/F1 MIS; -ZOFR4TAB PO; +[UNRECOGNIZED DRUG - CODE] PO
[2017-09-05 08:45] VITALS: BP 128/84; PULSE 93; RESP 14; TEMP 97.6; O2SAT 96
--- NOTE | 2017-09-05 08:57 | PD ---
HPI Chief Complaint: urinary retention Time Seen by Provider: 08:52 Travel History International Travel<30 days: No Contact w/Intl Traveler<30days: No Traveled to known affect area: No History of Present Illness HPI The patient is a 67-year-old male who presents to the emergency department for Levine catheter placement. The patient resides in a alf and has a chronic indwelling Levine catheter. The patient is a somewhat limited historian with a history of vascular dementia, is unsure why he needs a Levine catheter. Apparently nursing staff removed the Levine catheter this morning and were unable to replace the Levine catheter. Therefore, the patient was referred to the emergency department for Levine catheter placement. The patient denies any significant abdominal pain or distention. He states the Levine catheter was removed this morning and he has been unable to pass any urine. He denies any fever, chills, or sweats. Symptoms are mild to moderate, exacerbated after Levine catheter was removed, and there are no current alleviating factors. PFSH Past Medical History Hx Anticoagulant Therapy: Yes (325 MG. ASA DAILY) Cardiovascular Problems: Yes COPD: Yes Cerebrovascular Accident: Yes (RIGHT SIDED WEAKNESS) Diminished Hearing: No Musculoskeletal: No Neurologic: Yes Past Surgical History Pacemaker: No Other Surgery: Yes (HERNIA REPAIR ) Social History Alcohol Use: Yes (H/O ETOH DAILY) Tobacco Use: No Substance Use: No Allergies-Medications (Allergen,Severity, Reaction): Coded Allergies: No Known Allergies (Verified , 09/26/16) Reported Meds & Prescriptions Reported Meds & Active Scripts Active Potassium Chloride ER (Potassium Chloride) 20 Meq Tab 20 Meq PO BID Oxycodone (Oxycodone HCl) 5 Mg Tab 5 Mg PO Q4H PRN Pantoprazole (Pantoprazole Sodium) 40 Mg Tab 40 Mg PO Q12HR Coumadin (Warfarin) 5 Mg Tab 5 Mg PO DAILY Reported Cymbalta DR (Duloxetine HCl) 20 Mg Capdr 40 Mg PO HS Loperamide (Loperamide HCl) 2 Mg Cap 4 Mg PO INITIAL DOSE PRN After initial dose, give 1 cap (2mg) after each loose stool, not to exceed 8 caps/2hrs-May give liquid if unable to take capsule Milk of Magnesia Liq (Magnesium Hydroxide) 400 Mg/5 Ml Susp 30 Ml PO Q4HR PRN Enema Disposable (Sodium Phosphates) 1 Deb Deb 1 Applic RECTAL DIRECTED PRN Dulcolax Supp (Bisacodyl) 10 Mg Supp 10 Mg RECTAL DAILY PRN Aspirin Adult Low Strength (Aspirin) 81 Mg Tabdr 81 Mg PO DAILY Tylenol (Acetaminophen) 325 Mg Tab 650 Mg PO Q4H PRN Review of Systems ROS Limitations: Poor Historian Except as stated in HPI: all other systems reviewed are Neg Cardiovascular: No: Chest Pain or Discomfort Respiratory: No: Shortness of Breath Gastrointestinal: No: Nausea, Vomiting, Abdominal Pain Genitourinary: Positive: Decreased Urinary Output, Other (as noted in the history of present illness) Neurologic: Positive: Other (history of vascular dementia) Physical Exam Narrative GENERAL: Awake, alert, pleasant 67-year-old male who appears his stated age and is in no acute respiratory distress. SKIN: Focused skin assessment warm/dry. HEAD: Atraumatic. Normocephalic. EYES: No scleral icterus. ENT: No nasal bleeding or discharge. Slightly dry mucous membranes. NECK: Trachea midline. No JVD. CARDIOVASCULAR: Regular rate and rhythm. No murmur appreciated. RESPIRATORY: No accessory muscle use. Clear to auscultation. Breath sounds equal bilaterally. GASTROINTESTINAL: Abdomen soft, non-tender, nondistended. No guarding or rigidity. Genitourinary: Circumcised phallus with visible blood at the meatus. MUSCULOSKELETAL: No obvious deformities. No clubbing. No cyanosis. No edema. NEUROLOGICAL: Awake and alert. No obvious cranial nerve deficits. Motor grossly within normal limits. Normal speech. Follows simple commands. Oriented to person, but not the year. PSYCHIATRIC: Appropriate mood and affect; insight and judgment normal. Data Data Last Documented VS Vital Signs Date Time Temp Pulse Resp B/P (MAP) Pulse Ox O2 Delivery O2 Flow Rate FiO2 09/05/17 08:45 97.6 93 14 128/84 (99) 96 09/05/17 08:45 Room Air Orders Orders Urinary Catheter Insert/Apply (09/05/17 08:52) Urinalysis - C+S If Indicated (09/05/17 08:57) Urine Culture (09/05/17 09:00) Ceftriaxone Inj (Rocephin Inj) (09/05/17 09:45) Labs Laboratory Tests Test 09/05/17 09:00 Urine Color YELLOW Urine Turbidity HAZY Urine pH 7.5 Urine Specific Alliance 1.017 Urine Protein 30 mg/dL Urine Glucose (UA) NEG mg/dL Urine Ketones NEG mg/dL Urine Occult Blood LARGE Urine Nitrite POS Urine Bilirubin NEG Urine Urobilinogen LESS THAN 2.0 MG/DL Urine Leukocyte Esterase LARGE Urine RBC /hpf Urine WBC /hpf Urine Bacteria MOD /hpf Urine Mucus FEW /lpf Microscopic Urinalysis Comment CATH-CULTURE IND [facility] Medical Decision Making Medical Screen Exam Complete: Yes Emergency Medical Condition: Yes Medical Record Reviewed: Yes Interpretation(s) Laboratory Tests Test 09/05/17 09:00 Urine Color YELLOW Urine Turbidity HAZY Urine pH 7.5 Urine Specific Alliance 1.017 Urine Protein 30 mg/dL Urine Glucose (UA) NEG mg/dL Urine Ketones NEG mg/dL Urine Occult Blood LARGE Urine Nitrite POS Urine Bilirubin NEG Urine Urobilinogen LESS THAN 2.0 MG/DL Urine Leukocyte Esterase LARGE Urine RBC /hpf Urine WBC /hpf Urine Bacteria MOD /hpf Urine Mucus FEW /lpf Microscopic Urinalysis Comment CATH-CULTURE IND Differential Diagnosis Differential diagnosis includes urinary retention, benign prostatic hypertrophy , hematuria, urethral stricture, neurogenic bladder. Narrative Course A Levine catheter was attempted to be placed by nursing staff. The Levine catheter was placed without difficulty. UA was sent to lab which reveals innumerable RBCs, WBCs, nitrites, and leukocyte esterase. Therefore, the patient was administered Rocephin 1 g intravenously. The patient will be discharged back to the alf on Bactrim for complicated urinary tract infection. Diagnosis Primary Impression: Complicated urinary tract infection Additional Impression: Urinary retention Patient Instructions: General Instructions Additional Instructions: Medications as directed. Follow-up with your primary physician. Return if symptoms worsen or progress. Med/Other Pt SpecificInfo: Prescription(s) given Scripts Sulfamethoxazole-Trimethoprim (Bactrim DS) 800-160 Mg Tab 1 TAB PO BID for Infection, #14 TAB 0 Refills Prov: Jerald Diamond MD 09/05/17 Disposition: 70 TRANSFER TO OTHER FACILITY (transfer back to alf) Condition: Stable Jerald Diamond MD Sep 05, 2017 08:57
[2017-09-05] MEDS ORDERED: DULO20 PO (09:14)
[2017-09-05 09:27] LABS: BACTERIA, URINE MOD /hpf; BLOOD, URINE LARGE (NEG); COMMENT (UR) CATH-CULTURE IND; CULTURE IF INDICATED CATH CULTURE IND; GLUCOSE,URINE NEG (NEG); KETONE, URINE NEG (NEG); MUCUS URINE FEW /lpf (OCC); NITRITE,URINE POS (NEG); PH, URINE 7.5 (5.0-8.5); URINE COLOR YELLOW (YELLW/STRAW)
[2017-09-05] MEDS ORDERED: BACT800T5 PO (09:40)
[2017-09-05] MEDS ORDERED: cefTRIAXone INJ 1,000 MG in SODIUM CHLORIDE 0.9% INJ 100 ML IV ONE (09:45)
== END 2017-09-05 11:30 | disposition short-term general hospital (02) ==
LOC: NEPC 08:43
DX: N39.0 Urinary tract infection, site not specified (principal); R33.9 Retention of urine, unspecified; B96.1 Klebsiella pneumoniae [K. pneumoniae] as the cause of diseases classified elsewhere; B96.89 Other specified bacterial agents as the cause of diseases classified elsewhere; F01.50 Vascular dementia, unspecified severity, without behavioral disturbance, psychotic disturbance, mood disturbance, and anxiety; Z79.82 Long term (current) use of aspirin; Z86.79 Personal history of other diseases of the circulatory system; Z87.09 Personal history of other diseases of the respiratory system; Z86.69 Personal history of other diseases of the nervous system and sense organs
CPT/HCPCS: 51702; 81001; 87077; 87086; 87186; 96365; 99284; J0696

== ENCOUNTER 2017-09-18 06:16 | Inpatient (IN) | payer MEDICARE, OTHER ==
[2017-09-18] VITALS (29 sets, daily range): BP systolic 53–177; BP diastolic 30–69; PULSE 67–121; RESP 16–29; TEMP 89.2–94.7; O2SAT 0–99
[~2017-09-18] VITALS: Ht 172.7 cm; Wt 80.0 kg
[~2017-09-18 06:16] MED LIST changes: +BACT800T5 PO; +DULO20 PO; -[UNRECOGNIZED DRUG - CODE] PO
[2017-09-18] MEDS ORDERED: PHENYLEPHRINE HCL 10 MG/ML VIAL ONE (06:49)
[2017-09-18] MEDS ORDERED: EPINEPHrine (1:1000) INJ 2 MG in DEXTROSE 5% IN WATER INJ 250 ML IV PRN ×4 (07:15→09:30)
[2017-09-18] MEDS ORDERED: SODIUM CHLORIDE 0.9% FLUSH 5 ML FLUSH IV FLUSH PRN (07:15)
[2017-09-18] MEDS ORDERED: NOREPINEPHRINE-DEXTROSE DRIP 250 ML IV PRN ×2 (07:15→08:15)
[2017-09-18] MEDS ORDERED: TERBUTALINE INJ 1 MG/ML AMP SQ PRN ×4 (07:15→09:45)
--- NOTE | 2017-09-18 07:22 | PD ---
Data Data Last Documented VS Vital Signs Date Time Temp Pulse Resp B/P (MAP) Pulse Ox O2 Delivery O2 Flow Rate FiO2 09/18/17 09:30 80 16 96/46 (63) 100 09/18/17 08:02 0 09/18/17 07:45 Ventilator 09/18/17 06:49 94.7 15.00 Orders Orders Type And Screen (09/18/17 06:33) Phenylephrine Inj (Neosynephrine Inj) (09/18/17 06:49) Electrocardiogram (09/18/17 07:15) Complete Blood Count With Diff (09/18/17 07:15) Comprehensive Metabolic Panel (09/18/17 07:15) Creatine Kinase (Cpk) (09/18/17 07:15) Prothrombin Time / Inr (Pt) (09/18/17 07:15) Act Partial Throm Time (Ptt) (09/18/17 07:15) Troponin I (09/18/17 07:15) Blood Culture (09/18/17 07:15) Chest, Single Ap (09/18/17 07:15) Ct Brain W/O Iv Contrast(Rout) (09/18/17 07:15) Blood Glucose (09/18/17 07:15) Ecg Monitoring (09/18/17 07:15) Iv Access Insert/Monitor (09/18/17 07:15) Oximetry (09/18/17 07:15) Sodium Chloride 0.9% Flush (Ns Flush) (09/18/17 07:15) Norepinephrine-Dextrose Drip (Levophed-D (09/18/17 07:15) Terbutaline Inj (Brethine Inj) (09/18/17 07:15) Epinephrine (1:1000) Inj (Adrenalin (1:1 (09/18/17 07:15) Piperacil-Tazo 3.375 Gm Premix (Zosyn 3. (09/18/17 07:30) Red Blood Cells (Rbc) (09/18/17 07:23) Fresh Frozen Plasma (Ffp) (09/18/17 07:23) Blood Product Administration (09/18/17 07:23) Sodium Chlor 0.9% 250 Ml Inj (Ns 250 Ml (09/18/17 07:30) Norepinephrine-Dextrose Drip (Levophed-D (09/18/17 08:15) Terbutaline Inj (Brethine Inj) (09/18/17 08:15) Lactic Acid Sepsis Protocol (09/18/17 08:03) Arterial Blood Gas (Abg) (09/18/17 ) Dextrose 5% In Wate... W/Sodium Bicarbon (09/18/17 08:30) Dextrose 5% In Wate... W/Sodium Bicarbon (09/18/17 08:30) Ct Abd/Pel W/O Iv Contrast (09/18/17 08:26) Phenyleph/Ns 1000 Mcg/10ml Syr (Neosynep (09/18/17 08:40) Dopamine Inj Premix (Dopamine Inj Premix (09/18/17 08:45) Terbutaline Inj (Brethine Inj) (09/18/17 08:45) Sodium Chlor 0.9% 1000 Ml Inj (Ns 1000 M (09/18/17 09:00) Sodium Chlor 0.9% 1000 Ml Inj (Ns 1000 M (09/18/17 09:00) Red Blood Cells (Rbc) (09/18/17 08:54) Blood Product Administration (09/18/17 08:54) Sodium Chlor 0.9% 250 Ml Inj (Ns 250 Ml (09/18/17 09:00) CKMB (09/18/17 08:00) CKMB% (09/18/17 08:00) Sodium Chlor 0.9% 1000 Ml Inj (Ns 1000 M (09/18/17 09:15) Neurological Rass Scale Q30MX2,Q2HX4,Q4H (09/18/17 09:10) Fentanyl Drip (Fentanyl Drip) (09/18/17 09:15) Fentanyl Drip (Fentanyl Drip) (09/18/17 09:11) Phytonadione Inj (Vitamin K Inj) (09/18/17 09:15) Dextrose 5% In Wate... W/Vasopressin Inj (09/18/17 09:21) Epinephrine (1:1000) Inj (Adrenalin (1:1 (09/18/17 09:30) Prothrombin Complex Conc Inj (Kcentra In (09/18/17 10:00) Phenylephrine Inj (Neosynephrine Inj) (09/18/17 09:45) Terbutaline Inj (Brethine Inj) (09/18/17 09:45) Chest, Single Ap (09/18/17 09:37) Sodium Chloride 0.9... W/Pantoprazole In (09/18/17 09:37) Consult Gastroenterology (09/18/17 ) Admit Order (Ed Use Only) (09/18/17 09:40) Labs Laboratory Tests Test 09/18/17 08:00 09/18/17 08:08 White Blood Count 31.5 TH/MM3 Red Blood Count 2.13 MIL/MM3 Hemoglobin 6.0 GM/DL Hematocrit 22.3 % Mean Corpuscular Volume 104.7 FL Mean Corpuscular Hemoglobin 28.4 PG Mean Corpuscular Hemoglobin Concent 27.1 % Red Cell Distribution Width 19.2 % Platelet Count 232 TH/MM3 Mean Platelet Volume 7.5 FL Neutrophils (%) (Auto) 79.5 % Lymphocytes (%) (Auto) 16.6 % Monocytes (%) (Auto) 2.2 % Eosinophils (%) (Auto) 1.1 % Basophils (%) (Auto) 0.6 % Neutrophils # (Auto) 25.0 TH/MM3 Lymphocytes # (Auto) 5.2 TH/MM3 Monocytes # (Auto) 0.7 TH/MM3 Eosinophils # (Auto) 0.3 TH/MM3 Basophils # (Auto) 0.2 TH/MM3 CBC Comment AUTO DIFF Differential Total Cells Counted 100 Neutrophils % (Manual) 43 % Band Neutrophils % 26 % Lymphocytes % 15 % Monocytes % 5 % Eosinophils % 1 % Neutrophils # (Manual) 24.9 TH/MM3 Metamyelocytes 10 % Nucleated Red Blood Cells 5 /100 WBC Differential Comment FINAL DIFF MANUAL Platelet Estimate NORMAL Platelet Morphology Comment NORMAL Acanthocytes OCC Prothrombin Time 93.5 SEC Prothromb Time International Ratio 7.7 RATIO Activated Partial Thromboplast Time 226.4 SEC Blood Urea Nitrogen 40 MG/DL Creatinine 1.77 MG/DL Random Glucose 286 MG/DL Total Protein 3.5 GM/DL Albumin 1.5 GM/DL Calcium Level 9.3 MG/DL Alkaline Phosphatase 92 U/L Aspartate Amino Transf (AST/SGOT) 497 U/L Alanine Aminotransferase (ALT/SGPT) 393 U/L Total Bilirubin 0.2 MG/DL Sodium Level 138 MEQ/L Potassium Level 5.9 MEQ/L Chloride Level 100 MEQ/L Carbon Dioxide Level 6.1 MEQ/L Anion Gap 32 MEQ/L Estimat Glomerular Filtration Rate 39 ML/MIN Lactic Acid Level 28.1 mmol/L Total Creatine Kinase 578 U/L Creatine Kinase MB 7.0 NG/ML Creatine Kinase MB % 1.2 % Troponin I 0.16 NG/ML Blood Gas Puncture Site LT FEMORAL Blood Gas Patient Temperature 37.0 Blood Gas HCO3 4 mmol/L Blood Gas Base Excess -28.8 mmol/L Blood Gas Oxygen Saturation 97 % Arterial Blood pH 6.60 Arterial Blood Partial Pressure CO2 43 mmHg Arterial Blood Partial Pressure O2 415 mmHG Arterial Blood Oxygen Content 9.9 Vol % Arterial Blood Carboxyhemoglobin 0.3 % Arterial Blood Methemoglobin 1.1 % Blood Gas Hemoglobin 6.5 G/DL Oxygen Delivery Device VENTILATOR Blood Gas Ventilator Setting PRVC/16/450/0.9/+5 Blood Gas Inspired Oxygen 100 % MDM Supervised Visit with KRISTINE: No Narrative Course Working in tandem with Dr. Longoria during resuscitative efforts of this patient during PEA arrest the patient had emergent decompression of the right hemithorax with 14-gauge Angiocath by Dr. Romeo. After return of spontaneous circulation I was asked to place a pigtail catheter. Procedures Procedure Narrative CHEST TUBE THORACOSTOMY: The right anterior chest was prepped with chlorhexidine and sterilely draped with sterile towels. A small skin eladio was made with a 11 blade scalpel at the Third anterior intercostal space. Pigtail catheter was inserted over rigid stylette. Blood was seen in the pigtail catheter. The thoracostomy tube was secured with suture and sterile dressing with biopatch. Patient obtunded during the entire procedure. Bilateral breath sounds were heard. Waiting chest x-ray to confirm placement. Diagnosis Primary Impression: Pneumothorax on right Additional Impression: Cardiac arrest Hernan Shipley MD Sep 18, 2017 07:22
[2017-09-18] MEDS ORDERED: SODIUM CHLOR 0.9% 250 ML INJ 250 ML IV ONE ×2 (07:30→09:00)
[2017-09-18] MEDS ORDERED: PIPERACIL-TAZO 3.375 GM PREMIX 50 ML IV ONE (07:30)
[2017-09-18] MEDS ORDERED: VANCOMYCIN INJ 1,250 MG in SODIUM CHLOR 0.9% 250 ML INJ 250 ML IV ONE (07:30)
--- NOTE | 2017-09-18 07:41 | PD ---
HPI Chief Complaint: Code Blue Time Seen by Provider: 07:15 Travel History International Travel<30 days: No Contact w/Intl Traveler<30days: No Traveled to known affect area: No History of Present Illness HPI Patient is a 67-year-old male brought in by EMS in cardiac arrest. Per EMS, they were called for coffee-ground emesis. Upon taking him out of the care home, he said he didn't feel well and went into cardiac arrest. He received 4 rounds of epi and an amp of bicarbonate by EMS. Patient is unresponsive. PFSH Past Medical History Hx Anticoagulant Therapy: Yes (325 MG. ASA DAILY) Anemia: Yes Depression: Yes Cancer: Yes (COLON) Cardiovascular Problems: Yes COPD: Yes Cerebrovascular Accident: Yes (RIGHT SIDED WEAKNESS/DEFICIT) Diminished Hearing: No Musculoskeletal: Yes (BLADDER DYSFUNCTION ) Neurologic: Yes (APHASIA ) Past Surgical History Pacemaker: No Other Surgery: Yes (HERNIA REPAIR INFANT) Social History Alcohol Use: No (H/O ETOH DAILY) Tobacco Use: No Substance Use: No Allergies-Medications (Allergen,Severity, Reaction): Coded Allergies: No Known Allergies (Verified , 09/26/16) Reported Meds & Prescriptions Reported Meds & Active Scripts Active Bactrim DS (Sulfamethoxazole-Trimethoprim) 800-160 Mg Tab 1 Tab PO BID Potassium Chloride ER (Potassium Chloride) 20 Meq Tab 20 Meq PO BID Oxycodone (Oxycodone HCl) 5 Mg Tab 5 Mg PO Q4H PRN Pantoprazole (Pantoprazole Sodium) 40 Mg Tab 40 Mg PO Q12HR Coumadin (Warfarin) 5 Mg Tab 5 Mg PO DAILY Reported Cymbalta DR (Duloxetine HCl) 20 Mg Capdr 40 Mg PO HS Loperamide (Loperamide HCl) 2 Mg Cap 4 Mg PO INITIAL DOSE PRN After initial dose, give 1 cap (2mg) after each loose stool, not to exceed 8 caps/2hrs-May give liquid if unable to take capsule Milk of Magnesia Liq (Magnesium Hydroxide) 400 Mg/5 Ml Susp 30 Ml PO Q4HR PRN Enema Disposable (Sodium Phosphates) 1 Deb Deb 1 Applic RECTAL DIRECTED PRN Dulcolax Supp (Bisacodyl) 10 Mg Supp 10 Mg RECTAL DAILY PRN Aspirin Adult Low Strength (Aspirin) 81 Mg Tabdr 81 Mg PO DAILY Tylenol (Acetaminophen) 325 Mg Tab 650 Mg PO Q4H PRN Review of Systems ROS Limitations: Unresponsive Physical Exam Exam Limitations: Clinical Condition Narrative GENERAL: Unresponsive SKIN: Cold to the touch, pale in color. HEAD: Atraumatic. Normocephalic. EYES: The pulse fixed and dilated. ENT: Dry mucus membranes NECK: Trachea midline. No JVD. CARDIOVASCULAR: Regular rate and rhythm. No murmur appreciated. RESPIRATORY: No accessory muscle use. Clear to auscultation. Breath sounds equal bilaterally. GASTROINTESTINAL: Abdomen soft, non-tender, nondistended. Black tarry stool. MUSCULOSKELETAL: No obvious deformities. No clubbing. No cyanosis. No edema. NEUROLOGICAL: unresponsive, stiff, no spontaneous movements. Data Data Last Documented VS Vital Signs Date Time Temp Pulse Resp B/P (MAP) Pulse Ox O2 Delivery O2 Flow Rate FiO2 09/18/17 09:30 80 16 96/46 (63) 100 09/18/17 08:02 0 09/18/17 07:45 Ventilator 09/18/17 06:49 94.7 15.00 Orders Orders Type And Screen (09/18/17 06:33) Phenylephrine Inj (Neosynephrine Inj) (09/18/17 06:49) Electrocardiogram (09/18/17 07:15) Complete Blood Count With Diff (09/18/17 07:15) Comprehensive Metabolic Panel (09/18/17 07:15) Creatine Kinase (Cpk) (09/18/17 07:15) Prothrombin Time / Inr (Pt) (09/18/17 07:15) Act Partial Throm Time (Ptt) (09/18/17 07:15) Troponin I (09/18/17 07:15) Blood Culture (09/18/17 07:15) Chest, Single Ap (09/18/17 07:15) Ct Brain W/O Iv Contrast(Rout) (09/18/17 07:15) Blood Glucose (09/18/17 07:15) Ecg Monitoring (09/18/17 07:15) Iv Access Insert/Monitor (09/18/17 07:15) Oximetry (09/18/17 07:15) Sodium Chloride 0.9% Flush (Ns Flush) (09/18/17 07:15) Norepinephrine-Dextrose Drip (Levophed-D (09/18/17 07:15) Terbutaline Inj (Brethine Inj) (09/18/17 07:15) Epinephrine (1:1000) Inj (Adrenalin (1:1 (09/18/17 07:15) Piperacil-Tazo 3.375 Gm Premix (Zosyn 3. (09/18/17 07:30) Red Blood Cells (Rbc) (09/18/17 07:23) Fresh Frozen Plasma (Ffp) (09/18/17 07:23) Blood Product Administration (09/18/17 07:23) Sodium Chlor 0.9% 250 Ml Inj (Ns 250 Ml (09/18/17 07:30) Norepinephrine-Dextrose Drip (Levophed-D (09/18/17 08:15) Terbutaline Inj (Brethine Inj) (09/18/17 08:15) Lactic Acid Sepsis Protocol (09/18/17 08:03) Arterial Blood Gas (Abg) (09/18/17 ) Dextrose 5% In Wate... W/Sodium Bicarbon (09/18/17 08:30) Dextrose 5% In Wate... W/Sodium Bicarbon (09/18/17 08:30) Ct Abd/Pel W/O Iv Contrast (09/18/17 08:26) Phenyleph/Ns 1000 Mcg/10ml Syr (Neosynep (09/18/17 08:40) Dopamine Inj Premix (Dopamine Inj Premix (09/18/17 08:45) Terbutaline Inj (Brethine Inj) (09/18/17 08:45) Sodium Chlor 0.9% 1000 Ml Inj (Ns 1000 M (09/18/17 09:00) Sodium Chlor 0.9% 1000 Ml Inj (Ns 1000 M (09/18/17 09:00) Red Blood Cells (Rbc) (09/18/17 08:54) Blood Product Administration (09/18/17 08:54) Sodium Chlor 0.9% 250 Ml Inj (Ns 250 Ml (09/18/17 09:00) CKMB (09/18/17 08:00) CKMB% (09/18/17 08:00) Sodium Chlor 0.9% 1000 Ml Inj (Ns 1000 M (09/18/17 09:15) Neurological Rass Scale Q30MX2,Q2HX4,Q4H (09/18/17 09:10) Fentanyl Drip (Fentanyl Drip) (09/18/17 09:15) Fentanyl Drip (Fentanyl Drip) (09/18/17 09:11) Phytonadione Inj (Vitamin K Inj) (09/18/17 09:15) Dextrose 5% In Wate... W/Vasopressin Inj (09/18/17 09:21) Epinephrine (1:1000) Inj (Adrenalin (1:1 (09/18/17 09:30) Prothrombin Complex Conc Inj (Kcentra In (09/18/17 10:00) Phenylephrine Inj (Neosynephrine Inj) (09/18/17 09:45) Terbutaline Inj (Brethine Inj) (09/18/17 09:45) Chest, Single Ap (09/18/17 09:37) Sodium Chloride 0.9... W/Pantoprazole In (09/18/17 09:37) Consult Gastroenterology (09/18/17 ) Admit Order (Ed Use Only) (09/18/17 09:40) Labs Laboratory Tests Test 09/18/17 08:00 09/18/17 08:08 White Blood Count 31.5 TH/MM3 Red Blood Count 2.13 MIL/MM3 Hemoglobin 6.0 GM/DL Hematocrit 22.3 % Mean Corpuscular Volume 104.7 FL Mean Corpuscular Hemoglobin 28.4 PG Mean Corpuscular Hemoglobin Concent 27.1 % Red Cell Distribution Width 19.2 % Platelet Count 232 TH/MM3 Mean Platelet Volume 7.5 FL Neutrophils (%) (Auto) 79.5 % Lymphocytes (%) (Auto) 16.6 % Monocytes (%) (Auto) 2.2 % Eosinophils (%) (Auto) 1.1 % Basophils (%) (Auto) 0.6 % Neutrophils # (Auto) 25.0 TH/MM3 Lymphocytes # (Auto) 5.2 TH/MM3 Monocytes # (Auto) 0.7 TH/MM3 Eosinophils # (Auto) 0.3 TH/MM3 Basophils # (Auto) 0.2 TH/MM3 CBC Comment AUTO DIFF Differential Total Cells Counted 100 Neutrophils % (Manual) 43 % Band Neutrophils % 26 % Lymphocytes % 15 % Monocytes % 5 % Eosinophils % 1 % Neutrophils # (Manual) 24.9 TH/MM3 Metamyelocytes 10 % Nucleated Red Blood Cells 5 /100 WBC Differential Comment FINAL DIFF MANUAL Platelet Estimate NORMAL Platelet Morphology Comment NORMAL Acanthocytes OCC Prothrombin Time 93.5 SEC Prothromb Time International Ratio 7.7 RATIO Activated Partial Thromboplast Time 226.4 SEC Blood Urea Nitrogen 40 MG/DL Creatinine 1.77 MG/DL Random Glucose 286 MG/DL Total Protein 3.5 GM/DL Albumin 1.5 GM/DL Calcium Level 9.3 MG/DL Alkaline Phosphatase 92 U/L Aspartate Amino Transf (AST/SGOT) 497 U/L Alanine Aminotransferase (ALT/SGPT) 393 U/L Total Bilirubin 0.2 MG/DL Sodium Level 138 MEQ/L Potassium Level 5.9 MEQ/L Chloride Level 100 MEQ/L Carbon Dioxide Level 6.1 MEQ/L Anion Gap 32 MEQ/L Estimat Glomerular Filtration Rate 39 ML/MIN Lactic Acid Level 28.1 mmol/L Total Creatine Kinase 578 U/L Creatine Kinase MB 7.0 NG/ML Creatine Kinase MB % 1.2 % Troponin I 0.16 NG/ML Blood Gas Puncture Site LT FEMORAL Blood Gas Patient Temperature 37.0 Blood Gas HCO3 4 mmol/L Blood Gas Base Excess -28.8 mmol/L Blood Gas Oxygen Saturation 97 % Arterial Blood pH 6.60 Arterial Blood Partial Pressure CO2 43 mmHg Arterial Blood Partial Pressure O2 415 mmHG Arterial Blood Oxygen Content 9.9 Vol % Arterial Blood Carboxyhemoglobin 0.3 % Arterial Blood Methemoglobin 1.1 % Blood Gas Hemoglobin 6.5 G/DL Oxygen Delivery Device VENTILATOR Blood Gas Ventilator Setting PRVC/16/450/0.9/+5 Blood Gas Inspired Oxygen 100 % [facility] Medical Decision Making Medical Screen Exam Complete: Yes Emergency Medical Condition: Yes Medical Record Reviewed: Yes Differential Diagnosis GI bleed versus sepsis versus AL versus coagulopathy Narrative Course Patient is a 67-year-old male brought in in cardiac arrest. ACLS protocol was begun by EMS. ACLS was continued on arrival. Patient was given additional epi , calcium, bicarbonate. Breath sounds were absent on the right, decision made to needle decompressed. Patient then regained a pulse. He was started on Levaquin said. He was given 2 units of uncrossed emergent release blood. Needle decompression was converted to a pigtail catheter by Dr. Shipley. Patient's blood pressure continued to drop, started on Silvino-Synephrine as well. FFP and PRBCs ordered. Patient signed out to Dr. Melendrez to follow up testing and admit. Critical Care Narrative Aggregate critical care time was 40 minutes. Time to perform other separately billable procedures was not included in the critical care time. My time did not include minutes spent treating any other patients simultaneously or on activities that did not directly contribute to the patient's treatment. The services I provided to this patient were to treat and/or prevent clinically significant deterioration that could result in: [Serious illness or I provided critical care services requiring my management, as noted below: Chart data review, documentation time, medication orders and management, vital sign assessments/reviewing monitor data, ordering and reviewing lab tests, ordering and interpreting/reviewing x-rays and diagnostic studies, care of the patient and discussion of the patient with the admitting physicians. Procedures Procedure Narrative After the risks and benefits were discussed the following procedure was performed: INTUBATION: The patient was put in optimal position for the procedure. The patient was intubated with a 8.0 cuffed endotracheal tube. Tube placement was confirmed by visualization of the tube and balloon passing through the cords, capnometry and subsequent chest x-ray. Breath sounds were equal and well aerated bilaterally postintubation. No breath sounds over stomach. Patient tolerated procedure well. Diagnosis Primary Impression: Pneumothorax on right Additional Impression: Cardiac arrest Admitting Information Admitting Physician Requests: Admit Josefa Longoria MD Sep 18, 2017 07:41
--- NOTE | 2017-09-18 07:54 | PD ---
Physical Exam Narrative Patient was seen by ED physician and signed out to me. Patient complains of abdominal pain with vomiting up coffee-ground material this [facility]. EMS was called. Patient went into cardiac arrest. Patient was resuscitated. Patient regained pulse and blood pressure. Patient was intubated. Patient was found to have decreased breath sounds. Right-sided chest tube placement. Right femoral vein central line placement. Patient was given IV fluid and pressors. Patient has history GI bleed, colon adenocarcinoma , anemia, on Coumadin. According to jail medical record, patient is on aspirin and Coumadin. Patient was admitted to [facility] on April 21, 2017 and is May 11, 2017 with GI bleed. According to discharge instruction, Coumadin was stopped. Data Data Last Documented VS Vital Signs Date Time Temp Pulse Resp B/P (MAP) Pulse Ox O2 Delivery O2 Flow Rate FiO2 09/18/17 09:30 80 16 96/46 (63) 100 09/18/17 08:02 0 09/18/17 07:45 Ventilator 09/18/17 06:49 94.7 15.00 Orders Orders Type And Screen (09/18/17 06:33) Phenylephrine Inj (Neosynephrine Inj) (09/18/17 06:49) Electrocardiogram (09/18/17 07:15) Complete Blood Count With Diff (09/18/17 07:15) Comprehensive Metabolic Panel (09/18/17 07:15) Creatine Kinase (Cpk) (09/18/17 07:15) Prothrombin Time / Inr (Pt) (09/18/17 07:15) Act Partial Throm Time (Ptt) (09/18/17 07:15) Troponin I (09/18/17 07:15) Blood Culture (09/18/17 07:15) Chest, Single Ap (09/18/17 07:15) Ct Brain W/O Iv Contrast(Rout) (09/18/17 07:15) Blood Glucose (09/18/17 07:15) Ecg Monitoring (09/18/17 07:15) Iv Access Insert/Monitor (09/18/17 07:15) Oximetry (09/18/17 07:15) Sodium Chloride 0.9% Flush (Ns Flush) (09/18/17 07:15) Norepinephrine-Dextrose Drip (Levophed-D (09/18/17 07:15) Terbutaline Inj (Brethine Inj) (09/18/17 07:15) Epinephrine (1:1000) Inj (Adrenalin (1:1 (09/18/17 07:15) Piperacil-Tazo 3.375 Gm Premix (Zosyn 3. (09/18/17 07:30) Red Blood Cells (Rbc) (09/18/17 07:23) Fresh Frozen Plasma (Ffp) (09/18/17 07:23) Blood Product Administration (09/18/17 07:23) Sodium Chlor 0.9% 250 Ml Inj (Ns 250 Ml (09/18/17 07:30) Norepinephrine-Dextrose Drip (Levophed-D (09/18/17 08:15) Terbutaline Inj (Brethine Inj) (09/18/17 08:15) Lactic Acid Sepsis Protocol (09/18/17 08:03) Arterial Blood Gas (Abg) (09/18/17 ) Dextrose 5% In Wate... W/Sodium Bicarbon (09/18/17 08:30) Dextrose 5% In [place]... W/Sodium Bicarbon (09/18/17 08:30) Ct Abd/Pel W/O Iv Contrast (09/18/17 08:26) Phenyleph/Ns 1000 Mcg/10ml Syr (Neosynep (09/18/17 08:40) Dopamine Inj Premix (Dopamine Inj Premix (09/18/17 08:45) Terbutaline Inj (Brethine Inj) (09/18/17 08:45) Sodium Chlor 0.9% 1000 Ml Inj (Ns 1000 M (09/18/17 09:00) Sodium Chlor 0.9% 1000 Ml Inj (Ns 1000 M (09/18/17 09:00) Red Blood Cells (Rbc) (09/18/17 08:54) Blood Product Administration (09/18/17 08:54) Sodium Chlor 0.9% 250 Ml Inj (Ns 250 Ml (09/18/17 09:00) CKMB (09/18/17 08:00) CKMB% (09/18/17 08:00) Sodium Chlor 0.9% 1000 Ml Inj (Ns 1000 M (09/18/17 09:15) Neurological Rass Scale Q30MX2,Q2HX4,Q4H (09/18/17 09:10) Fentanyl Drip (Fentanyl Drip) (09/18/17 09:15) Fentanyl Drip (Fentanyl Drip) (09/18/17 09:11) Phytonadione Inj (Vitamin K Inj) (09/18/17 09:15) Dextrose 5% In [place]... W/Vasopressin Inj (09/18/17 09:21) Epinephrine (1:1000) Inj (Adrenalin (1:1 (09/18/17 09:30) Prothrombin Complex Conc Inj (Kcentra In (09/18/17 10:00) Phenylephrine Inj (Neosynephrine Inj) (09/18/17 09:45) Terbutaline Inj (Brethine Inj) (09/18/17 09:45) Chest, Single Ap (09/18/17 09:37) Sodium Chloride 0.9... W/Pantoprazole In (09/18/17 09:37) Consult Gastroenterology (09/18/17 ) Admit Order (Ed Use Only) (09/18/17 09:40) Labs Laboratory Tests Test 09/18/17 08:00 09/18/17 08:08 White Blood Count 31.5 TH/MM3 Red Blood Count 2.13 MIL/MM3 Hemoglobin 6.0 GM/DL Hematocrit 22.3 % Mean Corpuscular Volume 104.7 FL Mean Corpuscular Hemoglobin 28.4 PG Mean Corpuscular Hemoglobin Concent 27.1 % Red Cell Distribution Width 19.2 % Platelet Count 232 TH/MM3 Mean Platelet Volume 7.5 FL Neutrophils (%) (Auto) 79.5 % Lymphocytes (%) (Auto) 16.6 % Monocytes (%) (Auto) 2.2 % Eosinophils (%) (Auto) 1.1 % Basophils (%) (Auto) 0.6 % Neutrophils # (Auto) 25.0 TH/MM3 Lymphocytes # (Auto) 5.2 TH/MM3 Monocytes # (Auto) 0.7 TH/MM3 Eosinophils # (Auto) 0.3 TH/MM3 Basophils # (Auto) 0.2 TH/MM3 CBC Comment AUTO DIFF Differential Total Cells Counted 100 Neutrophils % (Manual) 43 % Band Neutrophils % 26 % Lymphocytes % 15 % Monocytes % 5 % Eosinophils % 1 % Neutrophils # (Manual) 24.9 TH/MM3 Metamyelocytes 10 % Nucleated Red Blood Cells 5 /100 WBC Differential Comment FINAL DIFF MANUAL Platelet Estimate NORMAL Platelet Morphology Comment NORMAL Acanthocytes OCC Prothrombin Time 93.5 SEC Prothromb Time International Ratio 7.7 RATIO Activated Partial Thromboplast Time 226.4 SEC Blood Urea Nitrogen 40 MG/DL Creatinine 1.77 MG/DL Random Glucose 286 MG/DL Total Protein 3.5 GM/DL Albumin 1.5 GM/DL Calcium Level 9.3 MG/DL Alkaline Phosphatase 92 U/L Aspartate Amino Transf (AST/SGOT) 497 U/L Alanine Aminotransferase (ALT/SGPT) 393 U/L Total Bilirubin 0.2 MG/DL Sodium Level 138 MEQ/L Potassium Level 5.9 MEQ/L Chloride Level 100 MEQ/L Carbon Dioxide Level 6.1 MEQ/L Anion Gap 32 MEQ/L Estimat Glomerular Filtration Rate 39 ML/MIN Lactic Acid Level 28.1 mmol/L Total Creatine Kinase 578 U/L Creatine Kinase MB 7.0 NG/ML Creatine Kinase MB % 1.2 % Troponin I 0.16 NG/ML Blood Gas Puncture Site LT FEMORAL Blood Gas Patient Temperature 37.0 Blood Gas HCO3 4 mmol/L Blood Gas Base Excess -28.8 mmol/L Blood Gas Oxygen Saturation 97 % Arterial Blood pH 6.60 Arterial Blood Partial Pressure CO2 43 mmHg Arterial Blood Partial Pressure O2 415 mmHG Arterial Blood Oxygen Content 9.9 Vol % Arterial Blood Carboxyhemoglobin 0.3 % Arterial Blood Methemoglobin 1.1 % Blood Gas Hemoglobin 6.5 G/DL Oxygen Delivery Device VENTILATOR Blood Gas Ventilator Setting PRVC/16/450/0.9/+5 Blood Gas Inspired Oxygen 100 % MDM Supervised Visit with KRISTINE: No Narrative Course Patient receiving normal saline solution 3 L IV bolus. Bicarbonate 3 Amps IV push. D5 with 3 Amps of bicarbonate per liter at 100 cc an hour. Levophed drip. Dopamine drip. All IV fluid and medication to central line. 2 units of blood given. Fresh frozen plasma ordered and given. 2 more units blood ordered and will be given. K Centra and vitamin K order. Silvino-Synephrine drip order. Vancomycin and Zosyn IV ordered. Patient will be admitted to [facility]. I spoke with the phthalic acid purifier and GI consultation. Critical Care Narrative Aggregate critical care time was 60 minutes. Time to perform other separately billable procedures was not included in the critical care time. My time did not include minutes spent treating any other patients simultaneously or on activities that did not directly contribute to the patient's treatment. The services I provided to this patient were to treat and/or prevent clinically significant deterioration that could result in: I provided critical care services requiring my management, as noted below: Chart data review, documentation time, medication orders and management, vital sign assessments/reviewing monitor data, ordering and reviewing lab tests, ordering and interpreting/reviewing x-rays and diagnostic studies, care of the patient and discussion of the patient with the admitting physicians. Procedures Procedure Narrative CENTRAL VENOUS LINE: The site was prepped with Betadine and sterilely draped. It was infiltrated with 1% lidocaine plain. The deep vein was cannulated using normal Seldinger technique. A triple lumen central line was placed in the right femoral vein site and secured with simple interrupted suture. The site was sterilely dressed. The patient tolerated the procedure well. Diagnosis Primary Impression: Pneumothorax on right Additional Impressions: Cardiac arrest Upper GI bleed Septic shock Admitting Information Admitting Physician Requests: Admit David Melendrez MD Sep 18, 2017 07:54
--- NOTE | 2017-09-18 08:06 | RADRPT ---
EXAM DATE/TIME: 09/18/2017 07:46 [facility] COMPARISON: No previous studies available for comparison. INDICATIONS : Syncope. Cardiac arrest. MEDICAL HISTORY : Stroke. Cardiovascular disease. SURGICAL HISTORY : None. ENCOUNTER: Initial ACUITY: 1 day PAIN SCORE: Non-responsive. LOCATION: Bilateral chest FINDINGS: Endotracheal tube tip in satisfactory position. Small caliber right chest tube without significant pn eumothorax. Subsegmental basilar air space disease most characteristic of atelectasis. CONCLUSION: 1. Subsegmental airspace disease at the lung bases most characteristic of minimal atelectasis. Endotr acheal tube and right chest tube in place without significant pneumothorax. Tutu Givens MD on September 18, 2017 at 7:54 Board Certified Radiologist. This report was verified electronically.
[2017-09-18 08:16] LABS: BLOOD GAS BASE EXCESS -28.8 mmol/L (-2-2); BLOOD GAS CARBOXYHEMOGLOBIN 0.3 % (0-4); BLOOD GAS HCO3 4 mmol/L (22-26); BLOOD GAS METHEMOGLOBIN 1.1 % (0-2); BLOOD GAS O2 HGB SATURATION 97 % (90-100); BLOOD GAS OXYGEN CONTENT 9.9 Vol % (12.0-20.0); BLOOD GAS PCO2 43 mmHg (38-42); BLOOD GAS PO2 415 mmHG (61-120); BLOOD GAS TOTAL HGB 6.5 G/DL (12.0-16.0); CRITICAL VALUE YES; OXYGEN DEVICE VENTILATOR; VENT SETTINGS PRVC/16/450/0.9/+5
[2017-09-18 08:17] LABS: DRAW SITE LT FEMORAL; FIO2 100 %; NUMBER OF ARTERIAL PUNCTURES 1; STAT YES
[2017-09-18 08:28] LABS: BASOPHIL # 0.2 TH/MM3 (0-0.2); BASOPHIL % 0.6 % (0.0-2.0); EOSINOPHIL # 0.3 TH/MM3 (0-0.4); EOSINOPHIL % 1.1 % (0.0-4.0); LYMPH % 16.6 % (9.0-44.0); LYMPHOCYTE # 5.2 TH/MM3 (1.0-4.8); MEAN CELL VOLUME 104.7 FL (80.0-100.0); MEAN CORPUSCULAR HEMOGLOBIN 28.4 PG (27.0-34.0); MONO % 2.2 % (0.0-8.0); NEUT % 79.5 % (16.0-70.0); PLATELET COUNT 232 TH/MM3 (150-450); RED BLOOD COUNT 2.13 MIL/MM3 (4.50-5.90); RED CELL DISTRIBUTION WIDTH 19.2 % (11.6-17.2)
[2017-09-18] MEDS ORDERED: SODIUM BICARBONATE 8.4% INJ 150 MEQ in DEXTROSE 5% IN WATE 1000ML INJ 1,000 ML IV SCH ×4 (08:30)
[2017-09-18 08:32] LABS: HEMO FLAGS AUTO DIFF; MEAN CORPUSCULAR HGB CONC 27.1 % (32.0-36.0)
[2017-09-18 08:37] LABS: WHITE BLOOD COUNT 31.5 TH/MM3 (4.0-11.0)
[2017-09-18 08:38] LABS: HEMATOCRIT 22.3 % (39.0-51.0)
[2017-09-18] MEDS ORDERED: PHENYLEPH/NS 1000 MCG/10 ML SYR ONE (08:40)
[2017-09-18] MEDS ORDERED: DOPamine INJ PREMIX 500 ML IV PRN (08:45)
--- NOTE | 2017-09-18 08:51 | RADRPT ---
EXAM DATE/TIME: 09/18/2017 08:28 [facility] COMPARISON: No previous studies available for comparison. INDICATIONS : Altered mental status, cardiac arrest. RADIATION DOSE: 67.08 CTDIvol (mGy) MEDICAL HISTORY : Stroke. Chronic obstructive pulmonary disease. Carcinoma, colon. SURGICAL HISTORY : None. ENCOUNTER: Initial ACUITY: 1 day PAIN SCALE: Non-responsive LOCATION: Bilateral head TECHNIQUE: Multiple contiguous axial images were obtained of the head. Using automated exposure control and adj ustment of the mA and/or kV according to patient size, radiation dose was kept as low as reasonably a chievable to obtain optimal diagnostic quality images. DICOM format image data is available electro nically for review and comparison. FINDINGS: There is a remote large infarct in left MCA distribution predominantly involving the left temporal lo be. Findings stable since April 22. No mass, hemorrhage or shift. No hydrocephalus. No acute bony abno rmality. Mucosal thickening in the paranasal sinuses. CONCLUSION: 1. Stable remote left MCA infarct. No acute intracranial abnormalities. Tutu Givens MD on September 18, 2017 at 8:46 Board Certified Radiologist. This report was verified electronically.
[2017-09-18 08:59] LABS: ALKALINE PHOSPHATASE 92 U/L (45-117); CREATINE KINASE 578 U/L (39-308); TOTAL BILIRUBIN ADULT 0.2 MG/DL (0.2-1.0)
[2017-09-18] MEDS ORDERED: SODIUM CHLOR 0.9% 1000 ML INJ 1,000 ML IV ONE ×4 (09:00→12:30)
[2017-09-18 09:02] LABS: ALT (GPT) 393 U/L (12-78); ANION GAP 32 MEQ/L (5-15); AST (GOT) 497 U/L (15-37); BICARBONATE 6.1 MEQ/L (21.0-32.0); BLOOD UREA NITROGEN 40 MG/DL (7-18); CHLORIDE 100 MEQ/L (98-107); GLOMERULAR FILTRATION RATE 39 ML/MIN (>89); POTASSIUM 5.9 MEQ/L (3.5-5.1); SODIUM (NA) 138 MEQ/L (136-145)
[2017-09-18 09:05] LABS: PROTHROMBIN TIME - PATIENT 93.5 SEC (9.8-11.6)
[2017-09-18 09:08] LABS: APTT (PATIENT) 226.4 SEC (24.3-30.1); INTERNATIONAL NORMALIZED RATIO 7.7 RATIO
--- NOTE | 2017-09-18 09:10 | RADRPT ---
EXAM DATE/TIME: 09/18/2017 08:34 [facility] COMPARISON: CHEST SINGLE AP, September 18, 2017, 7:46. INDICATIONS : Diffuse abdomen pain, evaluate for GI bleed. ORAL CONTRAST: No oral contrast ingested. RADIATION DOSE: 6.78 CTDIvol (mGy) MEDICAL HISTORY : Stroke. Carcinoma, colon. Chronic obstructive pulmonary disease. SURGICAL HISTORY : None. ENCOUNTER: Initial ACUITY: 1 day PAIN SCALE: Non-responsive LOCATION: Bilateral lower quadrant TECHNIQUE: Volumetric scanning of the abdomen and pelvis was performed. Using automated exposure control and ad justment of the mA and/or kV according to patient size, radiation dose was kept as low as reasonably achievable to obtain optimal diagnostic quality images. DICOM format image data is available electro nically for review and comparison. FINDINGS: There is a known right chest tube in place. There is a small to moderate size anterior pneumothorax o n the right. Dependent consolidation present in both lungs. No acute findings in the liver, spleen, kidneys or pancreas. Mild adrenal enlargement. There is constipation with rectum distended to about 8 cm. Levine catheter present in the bladder. Col onic diverticulosis without diverticulitis. Previous fixation proximal right femur. CONCLUSION: 1. Small to moderate anterior right pneumothorax in patient with known right chest tube. Chest tube s hould be evaluated for a leak. 2. Dependent consolidation in both lungs with some air bronchograms. Differential diagnosis includes aspiration and pneumonia. 3. No acute findings within the abdomen and pelvis. 4. Constipation with rectum distended to 8 cm. Levine catheter in bladder. Tutu Givens MD on September 18, 2017 at 8:58 Board Certified Radiologist. This report was verified electronically.
[2017-09-18] MEDS ORDERED: fentaNYL DRIP 250 ML ONE (09:11)
[2017-09-18] MEDS ORDERED: PHYTONADIONE 10 MG/ML VIAL SQ ONE (09:15)
[2017-09-18] MEDS ORDERED: fentaNYL DRIP 250 ML IV PRN (09:15)
[2017-09-18 09:18] LABS: BANDS 26 % (0-6); CORRECTED NUCLEATED RBC 5 /100 WBC (0-0); EOSINOPHILS 1 % (0-4); METAMYELOCYTES 10 % (0-1); NEUTROPHIL # MANUAL DIFF 24.9 TH/MM3 (1.8-7.7); POLYS (SEG NEUTROPHILS) 43 % (16-70); WBC DIFF SAMPLE 100
[2017-09-18 09:19] LABS: ACANTHOCYTES OCC (NORMAL); PLATELET ESTIMATE SMEAR NORMAL (NORMAL); PLATELET MORPHOLOGY NORMAL (NORMAL); SCAN/DIFF FINAL DIFF MANUAL
[2017-09-18] MEDS ORDERED: VASOPRESSIN INJ 40 UNITS in DEXTROSE 5% IN WATER 100ML INJ 98 ML IV SCH ×2 (09:21)
[2017-09-18] MEDS ORDERED: PANTOPRAZOLE INJ 80 MG in SODIUM CHLORIDE 0.9% INJ 100 ML IV SCH (09:37)
[2017-09-18] MEDS ORDERED: MISCELLANEOUS NURSING INFORMATION XX SCH (09:45)
[2017-09-18] MEDS ORDERED: CHLORHEXIDINE GLUCONATE 2 % 1 PACK (2 CLOTHS) TOP PRN (09:45)
[2017-09-18] MEDS ORDERED: GLUCAGON 1 MG/ML VIAL OTHER PRN (10:00)
[2017-09-18] MEDS ORDERED: Vancomycin Consult Pharmacy 1 EA OTHER SCH (10:00)
[2017-09-18] MEDS ORDERED: RESP: ALBUTEROL 2.5 MG/IPRATROPIUM 0.5 MG NEB (PRN) INH (10:00)
[2017-09-18] MEDS ORDERED: PROTHROMBIN COMPLEX CONC INJ 4,000 UNITS in SYRINGE/BAG 1 EA IV ONE (10:00)
[2017-09-18] MEDS ORDERED: DEXTROSE 50% IN WATER 50 ML VIAL(D50) IV PUSH PRN (10:00)
[2017-09-18] MEDS ORDERED: INSULIN NovoLIN REGULAR SUPPLEMENTAL SCALE SQ SCH (10:00)
[2017-09-18] MEDS ORDERED: SODIUM BICARBONATE 8.4% INJ 50 MEQ/50 ML SYR IV PUSH ONE ×3 (10:00→15:00)
[2017-09-18 10:20] LABS: LACTIC ACID GHOST NOT REPORTABLE
[2017-09-18] MEDS: PHENYLEPHRINE INJ 40 MG in DEXTROSE 5% IN WATE 500 ML INJ 496 ML IV PRN ×4 (10:26→13:10)
--- NOTE | 2017-09-18 10:42 | RADRPT ---
EXAM DATE/TIME: 09/18/2017 10:02 [facility] COMPARISON: CT ABDOMEN & PELVIS W/O CONTRAST, September 18, 2017, 8:34. INDICATIONS : Post intubation and chest tube. MEDICAL HISTORY : Stroke. Carcinoma, colon. Chronic obstructive pulmonary disease. Cardiovascular disease. SURGICAL HISTORY : None. ENCOUNTER: Subsequent ACUITY: 1 day PAIN SCORE: Non-responsive. LOCATION: Bilateral chest FINDINGS: Right chest tube is present. There is a small right pneumothorax, mostly anterior. Endotracheal tube in satisfactory position. Mild basilar airspace disease CONCLUSION: 1. Right chest tube with small right pneumothorax, mostly anterior and at the costophrenic angle. Dep endent air space disease in the lungs similar to earlier exam. Tutu Givens MD on September 18, 2017 at 10:38 Board Certified Radiologist. This report was verified electronically.
[2017-09-18] MEDS ORDERED: VANCOMYCIN INJ 1,000 MG in SODIUM CHLOR 0.9% 250 ML INJ 250 ML IV ONE (11:00)
[2017-09-18] MEDS ORDERED: CALCIUM GLUCONATE INJ 1 GM in SODIUM CHLORIDE 0.9% INJ 100 ML IV ONE (11:00)
[2017-09-18] MEDS ORDERED: SODIUM BICARBONATE 8.4% INJ 150 MEQ in WATER STERILE FOR INJ 850 ML IV SCH (11:00)
[2017-09-18] MEDS ORDERED: LIDOCAINE HCL 1% 50 ML VIAL ONE (11:05)
[2017-09-18] MEDS ORDERED: VASOPRESSIN 20 UNITS/ML VIAL (IVTITR) ONE (11:25)
[2017-09-18] MEDS ORDERED: CALCIUM GLUCONATE 10% 1 GM/10 ML VIAL ONE (11:33)
[2017-09-18] MEDS ORDERED: HYDROCORTISONE SOD SUCCINATE 100 MG VIAL ONE (11:33)
[2017-09-18] MEDS ORDERED: HYDROCORTISONE SOD SUCCINATE 100 MG VIAL IV PUSH ONE (11:45)
[2017-09-18] MEDS ORDERED: VASOPRESSIN 40 U/D5W 100 ML Titrate, Post Cardiac Surgery IV PRN ×2 (11:45)
[2017-09-18] MEDS ORDERED: RESP: ALBUTEROL 2.5 MG/IPRATROPIUM 0.5 MG NEB (SCH) INH (12:00)
[2017-09-18] MEDS ORDERED: PIPERACIL-TAZO 3.375 GM PREMIX 50 ML IV SCH (12:00)
[2017-09-18 12:43] LABS: BLOOD GAS BASE EXCESS -22.6 mmol/L (-2-2); BLOOD GAS HCO3 10 mmol/L (22-26); BLOOD GAS METHEMOGLOBIN 1.4 % (0-2); BLOOD GAS O2 HGB SATURATION 89 % (90-100); BLOOD GAS OXYGEN CONTENT 6.4 Vol % (12.0-20.0); BLOOD GAS PCO2 72 mmHg (38-42); BLOOD GAS PO2 100 mmHg (61-120); BLOOD GAS TOTAL HGB 4.9 G/DL (12.0-16.0); TEMP CORR TO 98.6
[2017-09-18 12:44] LABS: CRITICAL VALUE YES; DRAW SITE ART LINE; FIO2 100 %; OXYGEN DEVICE VENTILATOR; STAT YES; VENT SETTINGS A/C 450/20/5PEEP
[2017-09-18 12:59] LABS: POTASSIUM 5.2 MEQ/L (3.5-5.1)
[2017-09-18 13:22] LABS: CALCIUM-PROTEIN CORRECTED 10.2 MG/DL (8.5-10.1)
--- NOTE | 2017-09-18 13:22 | RADRPT ---
EXAM DATE/TIME: 09/18/2017 12:38 [facility] COMPARISON: CHEST SINGLE AP, September 18, 2017, 10:02. INDICATIONS : Status post chest tube placement. MEDICAL HISTORY : Stroke. Carcinoma, colon. Chronic obstructive pulmonary disease. Cardiovascular disease. SURGICAL HISTORY : None. ENCOUNTER: Initial ACUITY: 1 day PAIN SCORE: Non-responsive. LOCATION: chest FINDINGS: A single view of the chest demonstrates placement of an additional right-sided chest tube with resolu tion of previous right pneumothorax. Small caliber right chest tube also remains at the right lung ap ex. Endotracheal tube in good position. Basilar and dependent airspace consolidation remains in the l ungs. CONCLUSION: 1. Placement of additional right-sided chest tube with resolution of previous right pneumothorax. Bas ilar dependent airspace consolidation in the lungs. Tutu Givens MD on September 18, 2017 at 13:19 Board Certified Radiologist. This report was verified electronically.
--- NOTE | 2017-09-18 13:23 | MH ---
cc: TEOFILO TEJADA M.D. DATE OF ADMISSION: 09/18/2017 HISTORY OF PRESENT ILLNESS: The patient is a 67-year-old male with past medical history of colon adenocarcinoma, COPD, CVA on coumadin who was brought in by EMS in cardiac arrest. At the [facility], the patient received epinephrine x4, Narcan, bicarbonate. ACLS was continued on arrival and he received an additional epinephrine, calcium and bicarbonate in the emergency department. Per EMS, the patient had coffee-ground emesis in addition to black tarry stools. In the emergency room, the patient was noted to have absent breath sounds on the right and underwent a needle decompression by Dr. Longoria. Chest x-ray showed subsegmental airspace disease at the lung bases. He also had a CT scan of the abdomen and pelvis which showed small to moderate right pneumothorax, consolidation in both lungs with some air bronchograms. No acute findings within the abdomen and pelvis. He underwent right anterior pigtail catheter insertion by Dr. Melendrez in the emergency department. On arrival, the patient was hypotensive and his blood gas post intubation showed severe metabolic acidosis with a pH of 6.6, bicarbonate of 4, carbon dioxide of 43, pA02 of 415 and saturation of 97%. His laboratory data is significant for severe lactic acidosis with lactic acid level of 28, acute kidney injury with creatinine of 1.77 and potassium of 5.9. In addition, the patient was coagulopathic with an INR of 7.7, PTT of 226 and PT of 93.5. His CBC also showed leukocytosis with WBC of 31.5, hemoglobin 6.0. In the emergency department, he was given 2 units of packed red blood cells, vitamin K 10 milligrams subcutaneous and Kcentra. The patient also was started on pressors and he is currently maxed out on Levophed, Silvino-Synephrine, dopamine and vasopressin. A repeat chest x-ray at 10:00 o'clock showed right-sided pneumothorax with right pigtail catheter in place. Upon arrival to the [facility], I placed a #20 [place] chest tube on the right for a persistent pneumothorax. He also received additional 3 units of packed red blood cells, a total of 6 units of fresh frozen plasma, hydrocortisone 100 milligrams IV x1, 3 amps of sodium bicarbonate and is currently on bicarbonate drip. PAST MEDICAL HISTORY: His past medical history is significant for: 1. Adenocarcinoma of the colon. 2. CVA. 3. COPD. PAST SURGICAL HISTORY: 1. Previous open reduction internal fixation for a right intertrochanteric fracture with intramedullary nailing. 2. Previous hernia repair. 3. Previous EGD and colonoscopy. FAMILY HISTORY: Noncontributory. SOCIAL HISTORY: The patient is a [facility] resident. An ex-smoker. Ex-drinker. ALLERGIES: NO KNOWN DRUG ALLERGIES. REPORTED MEDICATIONS: 1. Bactrim. 2. Coumadin. 3. Aspirin. 4. Oxycodone. 5. Tylenol. 6. Protonix. REVIEW OF SYSTEMS: The review of systems is as per the history of present illness, and the rest of the review of systems is unobtainable. PHYSICAL EXAMINATION: GENERAL: A 67-year-old male intubated. VITAL SIGNS: Hypothermic with temperature of 89.4, pulse of 72, respiratory rate 22, blood pressure 61/43 on four pressors. VENT SETTINGS: PRVC 16, tidal volume 450, ___ 9, PEEP of 5, 100% FIO2. HEAD, EYES, EARS, NOSE, THROAT: Normocephalic and atraumatic. Pupils equal, round and reactive to light and accommodation. Extraocular muscles intact. Conjunctivae are pink. Nonicteric sclerae. Oral mucosa within normal limits. NECK: The neck is supple. No jugular venous distention, adenopathy or thyromegaly. Trachea in the midline. Orally intubated. CARDIOVASCULAR: Regular rate and rhythm. Normal S1 and S2. No murmurs, rubs or gallops noted. PULMONARY: Bilateral equal air entry. No rales or wheezing. ABDOMEN: The abdomen is soft, nontender, no distention. Positive bowel sounds. EXTREMITIES: No cyanosis, clubbing or edema. NEURO: Intubated. Unresponsive. LABORATORY DATA: Sodium 138, potassium 5.9, chloride 100, carbon dioxide 6, BUN 40, creatinine 1.77, glucose 286, lactic acid 28.1, AST 497, ALT 393, total bilirubin 0.2, total CK 478, alkaline phosphatase 92, troponin 0.16, albumin 1.5. WBCs 31.5, hemoglobin 6, hematocrit 22, platelet count 232,000. INR is 7.7. PT 93.5. PTT 226.4. RADIOGRAPHIC STUDIES: CT abdomen and pelvis showed small to moderate right anterior pneumothorax. Consolidation in both lungs with air bronchograms. No acute abdominal findings within the abdomen and pelvis. Chest x-ray at ten o'clock showed right chest tube with small right pneumothorax, dependent airspace disease in the lung. CT scan of the brain showed no acute intracranial abnormalities. IMPRESSION: 1. Vent-dependent respiratory failure. 2. Septic shock. 3. Severe lactic acidosis. 4. Acute kidney injury. 5. Aspiration pneumonia. 6. Elevated liver enzymes. 7. Anion gap metabolic acidosis. 8. Leukocytosis with bandemia. 9. Anemia. 10. GI bleed. 11. Coagulopathy. 12. Right-sided pneumothorax. 13. Colon adenocarcinoma. 14. COPD. RECOMMENDATIONS: 1. Central infusion if needed for sedation. 2. CT scan of the emergency department negative for acute intracranial findings. Monitor neuro status. 3. Continue with vent support and maintain saturations above 92%. 4. Bronchodilators in the form of DuoNeb q. 6 plus q. 2 PRN for shortness of breath. 5. Place on stress dose steroids 100% IV q. 8. 6. Continue with pressors. The patient is maxed out on four pressors: Levophed, dopamine, Silvino-Synephrine and vasopressin. 7. Maintain MAP greater than 65 mmHg. Serial lactic acid monitoring. Initial lactic acid 28.1 in the emergency department. Will recheck level now. He was given 30 amps of bicarbonate IV push and currently on bicarbonate drip. 8. Monitor renal function, intakes and outputs and avoid nephrotoxins. 9. IV fluids as stated above. 10. Keep NPO for now and place on Protonix drip. 11. Monitor liver function tests. 12. The patient is currently receiving a 4th unit of packed red blood cells. In addition, six units of fresh frozen plasma were given. Will repeat hemoglobin and hematocrit and PT and INR. Also, he received vitamin K and Kcentra in the emergency department. 13. Will consult the GI service for an upper GI bleed and anemia. Case discussed with Dr. Vallecillo. 14. Will place on antibiotics, Vancomycin, Zosyn and adjust doses per renal function and monitor for signs of infection, which include fever and WBCs. 15. Follow up blood cultures. In addition, will check Strep pneumoniae, Legionella urinary antigen and sputum culture with Gram stain. 16. Sliding scale insulin with Accu-Cheks for glycemic control. 17. GI prophylaxis on Protonix drip and DVT prophylaxis with SCDs. The patient was anticoagulated on arrival with an INR of 7.7, which is currently being reversed given GI bleed and severe anemia on arrival. 18. Right femoral central line was placed by the emergency department. In addition, Dr. Longoria attempted right internal jugular central line without any access . The patient is critically ill with respiratory failure, septic shock, aspiration pneumonia, severe lactic acidosis, GI bleed, coagulopathy. CRITICAL CARE TIME: Sixty (60) minutes excluding procedures. OVERALL PROGNOSIS: Guarded given multiorgan failure. MD RAFY Saleh/KEITH /12:42 PM /1:01 PM
[2017-09-18 13:51] LABS: INTERNATIONAL NORMALIZED RATIO 3.9 RATIO; PROTHROMBIN TIME - PATIENT 45.3 SEC (9.8-11.6)
[2017-09-18 13:53] LABS: APTT (PATIENT) 277.5 SEC (24.3-30.1)
[2017-09-18 14:13] LABS: HEMATOCRIT 23.1 % (39.0-51.0); MEAN CELL VOLUME 94.5 FL (80.0-100.0); MEAN CORPUSCULAR HEMOGLOBIN 29.1 PG (27.0-34.0); MEAN CORPUSCULAR HGB CONC 30.8 % (32.0-36.0); PLATELET COUNT 53 TH/MM3 (150-450); RED BLOOD COUNT 2.44 MIL/MM3 (4.50-5.90); RED CELL DISTRIBUTION WIDTH 17.3 % (11.6-17.2); WHITE BLOOD COUNT 9.5 TH/MM3 (4.0-11.0)
--- NOTE | 2017-09-18 14:24 | EKG ---
Date Performed: 09/18/2017 Time Performed: 09:05:14 PTAGE: 67 years EKG: Sinus rhythm WITH FIRST DEGREE AV BLOCK NONSPECIFIC ST & T-WAVE ABNORMALITY ABNORMAL ECG INTERPRETATION BASED ON A DEFAULT AGE OF 40 YEARS Compared to the PREVIOUS TRACING from 04/29/17, no significant change DOCTOR: Elias Gomez Interpretating Date/Time 09/18/2017 14:23:23
[2017-09-18 14:32] LABS: REVIEW FLAG FINAL
[2017-09-18] MEDS ORDERED: CALCIUM GLUCONATE 10% 1 GM/10 ML VIAL IV ONE (15:39)
[2017-09-18] MEDS ORDERED: NOREPINEPHRINE 4 MG/4 ML AMP IV ONE (15:39)
[2017-09-18] MEDS ORDERED: EPINEPHrine HCL (1:10,000) 1 MG/10 ML SYRINGE IV ONE ×2 (15:39)
[2017-09-18] MEDS ORDERED: CALCIUM CHLORIDE 10% SOLN 1 GRAM/10 ML SYR IV ONE ×2 (15:39)
[2017-09-18] MEDS ORDERED: SODIUM BICARBONATE 8.4% INJ 50 MEQ/50 ML SYR IV ONE ×2 (15:39)
--- NOTE | 2017-09-18 15:51 | MB ---
cc: FELIPA SIMON MD DATE OF CONSULTATION 09/18/[address] Green REASON FOR CONSULTATION Septic shock. HISTORY OF PRESENT ILLNESS This is a 67-year-old white male who was [facility]. The EMS brought the patient into the emergency department in cardiac arrest and required resuscitation. He had initially developed coffee-ground emesis and then he went into cardiac arrest. The patient was resuscitated and also in the process had needle decompression of the chest and after that he developed a pneumothorax and a pigtail catheter was initially inserted and then a chest tube was then inserted as well. The patient is requiring maximum dose of Levophed and also vasopressin and dobutamine and his systolic blood pressure is only 64 and his MAP is 54. He is bleeding via the endotracheal tube and also has some bleeding in the site where a femoral line was placed in the right groin. An attempt was made to place a right IJ which led to swelling of the right neck and that line was removed. The patient had low temperature of 89.4 and is now under the warming blanket. His white count 31.5 with 26% bands. He also has renal failure with estimated GFR of 46 and his liver function test is elevated. Blood cultures have been taken. He had chest x-rays and the latest chest x-ray shows small right pneumothorax this morning. CT scan of the abdomen and pelvis shows dependent consolidation in both lungs with air bronchograms. There were no acute findings within the abdomen and pelvis. The patient is status post right hemicolectomy for adenocarcinoma in April of 2017. He also has a history of CVA. He is on no sedation and he is nonresponsive. His ABG shows pH of 6.76. The patient is on 100% FIO2 on the ventilator. PAST MEDICAL HISTORY CVA, COPD, adenocarcinoma of the colon. History of right hemicolectomy, hernia repair. History of open reduction and internal fixation for right hip fracture. ALLERGIES NO KNOWN DRUG ALLERGIES. MEDICATIONS 1. Piperacillin/tazobactam. 2. Vancomycin dose was given earlier. 3. Norepinephrine. 4. Dopamine. 5. Epinephrine. 6. Phenylephrine. 7. Hydrocortisone. SOCIAL HISTORY The [facility] is a [facility] resident. Unable to obtain. FAMILY HISTORY Unable to obtain. REVIEW OF SYSTEMS Unable to obtain. PHYSICAL EXAMINATION GENERAL: On physical exam this is a slender male who is unresponsive on the ventilator. VITAL SIGNS: Include temperature 89.4, blood pressure is 64/46. HEENT: Unable to fully assess since the patient cannot cooperate. The sclerae is nonicteric. Oropharynx is intubated. There is bloody secretions via the ET tube. NECK: Has ecchymotic changes at the right side with swelling of the right side of the neck. LUNGS: Coarse rhonchi and right sided pleural rub. HEART: Regular S1-S2. ABDOMEN: Bowel sounds present but markedly diminished, soft, no tenderness appreciated. : Normal genitalia. RECTAL: Not performed. EXTREMITIES: No clubbing or cyanosis. The patient has a lacy reticulated type of erythematous skin change control manager the extremities. No edema. SKIN: No diffuse rash. NEURO: Unable to assess. PSYCH: Unable to assess. LABORATORY DATA WBC 31.5, 26% bands, 43% neutrophils, 12% lymphocytes, platelet 232. Hemoglobin 6.0, creatinine 1.52, BUN 36, sodium 146, AST 497, ALT 393. PT 93.5. INR 7.7, lactic acid 22.9. IMPRESSION 1. Profound septic shock. 2. DIC. 3. Status post cardiac arrest. 4. Aspiration pneumonia. 5. Acute respiratory failure. 6. Acute renal failure. 7. Leukocytosis secondary to sepsis. 8. Elevated liver function test due to sepsis. The patient remains hypotensive despite maximum pressors. RECOMMENDATIONS 1. Monitor blood cultures. 2. Continue piperacillin/tazobactam. 3. Obtain vancomycin levels to continue to dose vancomycin. 4. Monitor white blood cell count and blood cultures. 5. Monitor clinical status. Thank you for this consultation. The patient's progress will be monitored and further recommendations will be given upon followup. The patient is very critically ill at this time. Felipa Simon MD FD/JIMI /1:55 PM /3:36 PM MTDD
[2017-09-18] MEDS ORDERED: HYDROCORTISONE SOD SUCCINATE 100 MG VIAL IV PUSH SCH (18:00)
[2017-09-19] MEDS ORDERED: CHLORHEXIDINE GLUCONATE 2 % 1 PACK (2 CLOTHS) TOP SCH (04:00)
== END 2017-09-18 15:40 | disposition expired | DRG 871 ==
LOC: NEPE 06:16 → NEDA 09:42 → HIMW 10:52
PROVIDERS: ADMIT Internal Medicine Critical Care Medicine; ATTEND Internal Medicine Critical Care Medicine
PROC: 06HY33Z Insertion of Infusion Device into Lower Vein, Percutaneous Approach (ICD-10-PCS; principal; 2017-09-18)
PROC: 5A12012 Performance of Cardiac Output, Single, Manual (ICD-10-PCS; 2017-09-18)
PROC: 5A1935Z Respiratory Ventilation, Less than 24 Consecutive Hours (ICD-10-PCS; 2017-09-18)
PROC: 30243K1 Transfusion of Nonautologous Frozen Plasma into Central Vein, Percutaneous Approach (ICD-10-PCS; 2017-09-18)
PROC: 30243N1 Transfusion of Nonautologous Red Blood Cells into Central Vein, Percutaneous Approach (ICD-10-PCS; 2017-09-18)
PROC: 30243R1 Transfusion of Nonautologous Platelets into Central Vein, Percutaneous Approach (ICD-10-PCS; 2017-09-18)
PROC: 30243M1 Transfusion of Nonautologous Plasma Cryoprecipitate into Central Vein, Percutaneous Approach (ICD-10-PCS; 2017-09-18)
PROC: 0BH17EZ Insertion of Endotracheal Airway into Trachea, Via Natural or Artificial Opening (ICD-10-PCS; 2017-09-18)
PROC: 0W9930Z Drainage of Right Pleural Cavity with Drainage Device, Percutaneous Approach (ICD-10-PCS; 2017-09-18)
PROC: 0W9930Z Drainage of Right Pleural Cavity with Drainage Device, Percutaneous Approach (ICD-10-PCS; 2017-09-18)
DX: A41.9 Sepsis, unspecified organism (principal); R65.21 Severe sepsis with septic shock; I46.9 Cardiac arrest, cause unspecified; D65 Disseminated intravascular coagulation [defibrination syndrome]; J96.00 Acute respiratory failure, unspecified whether with hypoxia or hypercapnia; E87.2 Acidosis; K92.2 Gastrointestinal hemorrhage, unspecified; J69.0 Pneumonitis due to inhalation of food and vomit; N17.9 Acute kidney failure, unspecified; I69.951 Hemiplegia and hemiparesis following unspecified cerebrovascular disease affecting right dominant side; J93.9 Pneumothorax, unspecified; J44.9 Chronic obstructive pulmonary disease, unspecified; N31.9 Neuromuscular dysfunction of bladder, unspecified; I69.220 Aphasia following other nontraumatic intracranial hemorrhage; R74.8 Abnormal levels of other serum enzymes; D64.9 Anemia, unspecified; F32.9 Major depressive disorder, single episode, unspecified; Z79.01 Long term (current) use of anticoagulants; Z85.038 Personal history of other malignant neoplasm of large intestine; Z87.891 Personal history of nicotine dependence; Z90.49 Acquired absence of other specified parts of digestive tract
CPT/HCPCS: 31500; 32551; 36430; 36556; 36600; 36620; 51702; 70450; 71010; 74176; 80048; 80053; 82550; 82552; 82805; 83605; 84155; 84484; 85007; 85027; 85384; 85610; 85730; 86403; 86850; 86900; 86901; 86920; 86927; 86965; 87040; 87205; 87641; 92950; 93005; 94002; 94664; 96365; 96368; 96372; 99292; C9132; J0171; J0610; J1265; J1720; J2370; J2543; J3010; J3370; J3430; J7030; J7050; J7060; J7070; P9016; P9017; P9035